=== PATIENT | female | born 1990 | race African-American/Black ===

== ENCOUNTER 2016-11-16 07:24 | Emergency (ER) | payer OTHER ==
[2016-11-16 07:29] VITALS: BP 105/67; PULSE 90; TEMP 99.6; BMI 35.2
--- NOTE | 2016-11-16 07:42 | PDOC ---
Attending Attestation - Resident Resident Name: Mini Gonzalez - ED Attending Attestation I have performed the following: I have examined & evaluated the patient, The case was reviewed & discussed with the resident, I agree w/resident's findings & plan, Exceptions are as noted - HPI HPI: 26 yo F no significant PMH presents with cough, congestion, fever x2 days. No cp , SOB, N/V/D. She was evaluated at [facility] for the same yesterday, was given tylenol and discharged home. No known sick contacts. - Physicial Exam PE: GENERAL: Awake, alert, and fully oriented, in no acute distress HEAD: No signs of trauma EYES: PERRLA, EOMI, sclera anicteric, conjunctiva clear ENT: Auricles normal inspection, hearing grossly normal, nares patent, oropharynx clear without exudates. +Tonsillar hypertrophy, no exudates. Moist mucosa NECK: Normal ROM, supple, no lymphadenopathy, JVD, or masses LUNGS: Breath sounds equal, clear to auscultation bilaterally. No wheezes, and no crackles HEART: Regular rate and rhythm, normal S1 and S2, no murmurs, rubs or gallops ABDOMEN: Soft, nontender, normoactive bowel sounds. No guarding, no rebound. No masses EXTREMITIES: Normal range of motion, no edema. No clubbing or cyanosis. No cords, erythema, or tenderness NEUROLOGICAL: Cranial nerves II through XII grossly intact. Normal speech, normal gait SKIN: Warm, Dry, normal turgor, no rashes or lesions noted. - Medical Decision Making Symptoms likely due to flu. Will prescribe tamiflu, robitussin AC for cough.
--- NOTE | 2016-11-16 08:01 | PDOC ---
History of Present Illness - General History Source: Patient Exam Limitations: No Limitations - History of Present Illness Initial Comments: 11/16/16 08:34 Patient is a 26 year old female with a PMHx of Anemia and Asthma who presents to the ED complaining of cough with yellow sputum, runny nose, nasal congestion , and post nasal drip associated with chills. Patient reports the symptoms began two days ago and went to [facility] but complained that she was only given Tylenol, which she reports worsened the symptoms. She denies fever, nausea, vomiting, abdominal pain She denies chest pain, palpitations, shortness of breath She denies dizziness, loss of consciousness, headaches PMHx: Anemia and Asthma PSHx: None Medications: Ferrous Sulfate and Albuterol Allergies: NKDA Social: Denies alcohol, drugs, smoking <Mini Gonzalez - Last Filed: 11/16/16 09:30> <Michelle Kern - Last Filed: 11/18/16 07:35> - General Chief Complaint: Cold Symptoms Stated Complaint: COUGHING/SORE THROAT/CONGESTION Time Seen by Provider: 11/16/16 07:38 Past History - Past Medical History Anemia: Yes Asthma: Yes - Immunization History Immunization Up to Date: Yes - Psycho/Social/Smoking Cessation Hx Anxiety: No Suicidal Ideation: No Smoking History: Never smoked Have you smoked in the past 12 months: No Information on smoking cessation initiated: No Hx Alcohol Use: No Drug/Substance Use Hx: No Substance Use Type: None <Mini Gonzalez - Last Filed: 11/16/16 09:30> <Michelle Kern - Last Filed: 11/18/16 07:35> - Past Medical History Allergies/Adverse Reactions: Allergies Allergy/AdvReac Type Severity Reaction Status Date / Time No Known Allergies Allergy Verified 11/16/16 07:26 Home Medications: Ambulatory Orders Guaifenesin AC [Robitussin AC] 5 ml PO Q6H PRN #60 ml MDD 20 mL 11/16/16 Oseltamivir Phosphate [Tamiflu -] 75 mg PO BID #9 capsule 11/16/16 Review of Systems - Review of Systems Constitutional: Yes: Chills, Loss of Appetite. No: Diaphoresis, Fever HEENTM: Yes: Nose Congestion, Throat Pain. No: Ear Discharge Respiratory: Yes: Cough, Productive cough. No: Shortness of Breath, Wheezing Cardiac (ROS): Yes: Chest Pain (when coughing ). No: Edema, Lightheadedness, Palpitations ABD/GI: No: Diarrhea, Nausea, Vomiting, Abdominal cramping : No: Dysuria, Discharge, Frequency, Flank Pain, Pain Musculoskeletal: Yes: Joint Pain (body aches ). No: Back Pain Integumentary: No: Erythema, Flushing Neurological: Yes: Headache. No: Tingling, Weakness Psychiatric: No: Anxiety, Depression Endocrine: No: Intolerance to Cold, Intolerance to Heat Hematologic/Lymphatic: Yes: Anemia. No: Blood Clots <Mini Gonzalez - Last Filed: 11/16/16 09:30> *Physical Exam - Vital Signs Last Vital Signs Temp Pulse Resp BP Pulse Ox 99.6 F 90 20 105/67 98 11/16/16 07:26 11/16/16 07:26 11/16/16 07:26 11/16/16 07:11/16/16 07:26 - Physical Exam General Appearance: Yes: Other (Awake, alert, oriented and in no acute distress) HEENT: positive: EOMI, TRIP, TMs Normal, Pharynx Normal, Other (Tonsillitis). negative: Pharyngeal Erythema, Tonsillar Exudate, TM Erythema Neck: positive: Normal Thyroid. negative: Carotid bruit, Lymphadenopathy (R), Lymphadenopathy (L) Respiratory/Chest: positive: Lungs Clear, Normal Breath Sounds. negative: Respiratory Distress, Accessory Muscle Use, Labored Respiration, Decreased Breath Sounds, Crackles, Rhonchi, Stridor, Wheezing Cardiovascular: positive: Regular Rhythm, Regular Rate, S1, S2. negative: Edema , JVD, Murmur Gastrointestinal/Abdominal: positive: Normal Bowel Sounds, Soft. 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, Fully Oriented, Alert, Normal Mood/ Affect, Normal Response, Motor Strength 5/5 <Mini Gonzalez - Last Filed: 11/16/16 09:30> - Vital Signs Last Vital Signs Temp Pulse Resp BP Pulse Ox 99.6 F 90 20 105/67 98 11/16/16 07:26 11/16/16 07:26 11/16/16 07:26 11/16/16 07:26 11/16/16 07:26 <Michelle Kern - Last Filed: 11/18/16 07:35> ED Treatment Course - Medications Given in the ED: ED Medications Discontinued Medications Generic Name Dose Route Start Last Admin Trade Name Freq PRN Reason Stop Dose Admin Guaifenesin/Codeine Phosphate 10 ml 11/16/16 08:08 11/16/16 08:28 Robitussin Ac - PO 11/16/16 08:09 10 ml ONCE ONE Administration Oseltamivir Phosphate 75 mg 11/16/16 08:07 11/16/16 08:28 Tamiflu - PO 11/16/16 08:08 75 mg ONCE ONE Administration <Michelle Kern - Last Filed: 11/18/16 07:35> Medical Decision Making - Medical Decision Making 11/16/16 08:25 Patient is a 26 year old female with a PMHx of Asthma and Anemia who presents to the ED complaining of Cold, productive cough, sore throat, nasal congestion, and body aches for the last two days. Differential Diagnosis include but not limited to Influenza, URI, Asthma exacerbation. ED Course and Treatment: -Tamiflu 75mg PO -Robitussin AC 10ml PO once -Patient remains afebrile -May be discharged with Tamiflu 75mg BID for 5 days and explained that she has a viral infection and that she needs to have bed rest and remain hydrated <Mini Gonzalez - Last Filed: 11/16/16 09:30> *DC/Admit/Observation/Transfer - Discharge Dispostion Admit: No <Mini Gonzalez - Last Filed: 11/16/16 09:30> <Michelle Kern - Last Filed: 11/18/16 07:35> Diagnosis at time of Disposition: Influenza - Discharge Dispostion Disposition: HOME Condition at time of disposition: Stable - Prescriptions Prescriptions: Guaifenesin AC [Robitussin AC] 5 ml PO Q6H PRN #60 ml MDD 20 mL PRN Reason: Cough Oseltamivir Phosphate [Tamiflu -] 75 mg PO BID #9 capsule - Referrals Referrals: Bailee Ricci [Primary Care Provider] - - Patient Instructions Printed Discharge Instructions: DI for Viral Upper Respiratory Infection -- Adult Additional Instructions: -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
[2016-11-16] MEDS ORDERED: OSELTAMIVIR PHOSPHATE 75 MG CAPSULE PO ONE (08:07)
[2016-11-16] MEDS ORDERED: guaiFENesin/CODEINE 10 ML UNIT-DOSE CUPS PO ONE (08:08)
[2016-11-16] MEDS ORDERED: guaiFENesin/CODEINE 10 ML UNIT-DOSE CUPS ONE (08:13)
[2016-11-16] MEDS ORDERED: OSELTAMIVIR PHOSPHATE 75 MG CAPSULE ONE (08:14)
== END 2016-11-16 08:35 | disposition home or self-care (01) ==
LOC: JER 07:24
DX: J11.1 Influenza due to unidentified influenza virus with other respiratory manifestations (principal); J45.909 Unspecified asthma, uncomplicated; D64.9 Anemia, unspecified
CPT/HCPCS: 99281-25

== ENCOUNTER 2017-02-19 10:27 | Emergency (ER) | payer OTHER ==
[2017-02-19 10:39] VITALS: BMI 35.2
--- NOTE | 2017-02-19 11:34 | PDOC ---
History of Present Illness - General History Source: Patient Exam Limitations: No Limitations - History of Present Illness Initial Comments: 02/19/17 11:35 The patient is a 26 year old female, with a significant past medical history of anemia, depression, and asthma, who presents to the emergency department with depression for many years. The patient reports hearing a deep voice telling her these people are coming to kill her. She reports hearing voices in the past and having no alleviation from medications prescribed by her psychiatrist. She denies the voices instructing her to hurt other people. She reports having a previous attempt at attempting to end her life (over 10 years ago) and reports having urges today of hurting herself. She denies having any complaints of pain. She denies recent fevers, chills, headache or dizziness. She denies recent nausea, vomit, diarrhea or constipation. She denies recent dysuria, frequency, urgency or hematuria. She denies recent chest pain or shortness of breath. Allergies: NKDA Past surgical history: None reported. Social history: Nonsmoker. Denies EtOH use and drug use. <Souleymane Gold - Last Filed: 02/19/17 11:35> - General History Source: Patient, Old Records Exam Limitations: No Limitations <Rola Schumacher - Last Filed: 02/19/17 14:17> - General Chief Complaint: Psychiatric Stated Complaint: DEPRESSED Time Seen by Provider: 02/19/17 11:15 Past History <Souleymnae Gold - Last Filed: 02/19/17 11:35> - Past Medical History Anemia: Yes Asthma: Yes Psychiatric Problems: Yes (BIPOLAR,SCHIZOPHRENIA,DEPRESSION,ANXIETY DISORDER) - Immunization History Immunization Up to Date: Yes - Psycho/Social/Smoking Cessation Hx Anxiety: Yes Suicidal Ideation: No (DENIES) Smoking History: Never smoked Have you smoked in the past 12 months: No Hx Alcohol Use: No Drug/Substance Use Hx: No Substance Use Type: None <Rola Schumacher - Last Filed: 02/19/17 14:17> - Past Medical History Allergies/Adverse Reactions: Allergies Allergy/AdvReac Type Severity Reaction Status Date / Time shellfish derived Allergy Verified 02/19/17 10:40 Home Medications: Ambulatory Orders Haloperidol [Haldol -] 10 mg PO BID 02/19/17 Review of Systems - Review of Systems Able to Perform ROS?: Yes Comments:: 02/19/17 11:36 CONSTITUTIONAL: Absent: fever, no chills, no fatigue EYES: Absent: visual changes ENT: Absent: ear pain, no sore throat CARDIOVASCULAR: Absent: chest pain, no palpitations RESPIRATORY: Absent: cough, no SOB GI: Absent: abdominal pain, no nausea, no vomiting, no constipation, no diarrhea GENITOURINARY: Absent: dysuria, no frequency, no hematuria MUSKULOSKELETAL: Absent: back pain, no arthralgia, no myalgia SKIN: Absent: rash NEURO: Absent: headache PSYCH +hearing voices and depression <Souleymane Gold - Last Filed: 02/19/17 11:35> *Physical Exam - Vital Signs Last Vital Signs Temp Pulse Resp BP Pulse Ox 98.0 F 86 18 118/73 97 02/19/17 10:31 02/19/17 10:31 02/19/17 10:31 02/19/17 10:31 02/19/17 10:31 - Physical Exam Comments: 02/19/17 11:36 GENERAL: Well developed, well nourished. Awake and alert. Tearful on examination. HEENT: Normocephalic, atraumatic. PERRLA, EOMI. No conjunctival pallor. Sclera are non- icteric. Moist mucous membranes. Oropharynx is clear. NECK: Supple. Full ROM. No JVD. Carotid pulses 2+ and symmetric, without bruits. No thyromegaly. No lymphadenopathy. CARDIOVASCULAR: Regular rate and rhythm. No murmurs, rubs, or gallops. Distal pulses are 2+ and symmetric. PULMONARY: No evidence of respiratory distress. Lungs clear to auscultation bilaterally. No wheezing, rales or rhonchi. ABDOMINAL: Soft. Non-tender. Non-distended. No rebound or guarding. No organomegaly. Normoactive bowel sounds. MUSCULOSKELETAL Normal range of motion at all joints. No bony deformities or tenderness. No CVA tenderness. EXTREMITIES: No cyanosis. No clubbing. No edema. No calf tenderness. SKIN: Warm and dry. Normal capillary refill. No rashes. No jaundice. NEUROLOGICAL: Alert, awake, appropriate. Cranial nerves 2-12 intact. No deficits to light touch and temperature in face, upper extremities and lower extremities. No motor deficits in the in face, upper extremities and lower extremities. Normoreflexic in the upper and lower extremities. <Souleymane Gold - Last Filed: 02/19/17 11:35> - Vital Signs Last Vital Signs Temp Pulse Resp BP Pulse Ox 98.0 F 86 18 118/73 97 02/19/17 10:31 02/19/17 10:31 02/19/17 10:31 02/19/17 10:31 02/19/17 10:31 <Rola Schumacher - Last Filed: 02/19/17 14:17> ED Treatment Course - LABORATORY CBC & Chemistry Diagram: 02/19/17 12:10 02/19/17 12:10 <Rola Schumacher - Last Filed: 02/19/17 14:17> Medical Decision Making - Medical Decision Making 02/19/17 11:42 26-year-old female with history of psychiatric illness, depression who presents to the emergency Department with complaints of auditory hallucinations telling her that people are out to get her and feeling depressed. Differential diagnosis includes but is not limited to: Psychosis, paranoia, depression, electrolyte abnormality, thyroid disorder, toxic/metabolic derangement, substance-induced mood disorder. Plan: 1. Labs 2. Psychiatry consult 3. Observe and reevaluate 02/19/17 14:15 Addendum: the patient has been evaluated by the psych attending who feels that inpatient admission is warranted for evaluation and treatment of command hallucinations (see consultation). The labs have been reviewed and are noted in the EMR. The patient is medically cleared for transfer to definitive treatment. <Rola Schumacher - Last Filed: 02/19/17 14:17> *DC/Admit/Observation/Transfer - Attestations Scribe Attestion: 02/19/17 11:36 Documentation prepared by oSuleymane Gold, acting as medical service representative for Rola Schumacher MD. <Souleymane Gold - Last Filed: 02/19/17 11:35> - Attestations Physician Attestion: 02/19/17 11:43 I, Dr. Rola Schumacher, attest that the scribes documentation that appears above has been prepared under my direction and personally reviewed by me in its entirety. I confirmed that the note above accurately reflects all work, treatment, procedures, and medical decision-making performed by me. <Rola Schumacher - Last Filed: 02/19/17 14:17> Diagnosis at time of Disposition: Auditory hallucination, Psychosis - Discharge Dispostion Disposition: TRANSFER ACUTE CARE/OTHER HOSP Condition at time of disposition: Stable - Referrals Referrals: Hayden Pride MD [Primary Care Provider] -
[2017-02-19 12:18] LABS: BASOPHIL 0.5 % (0-2.0); EOSINOPHIL 1.2 % (0-4.5); MCH 20.7 pg (25.7-33.7); MCHC 30.8 g/dl (32.0-36.0); MEAN CELL VOLUME 67.3 fl (80-96); MEAN PLT VOLUME 9.5 fl (7.5-11.1); NEUTROPHILS 61.9 % (42.8-82.8); PLATELET COUNT 291 K/MM3 (134-434); RDW 16.5 % (11.6-15.6); WHITE BLOOD COUNT 6.3 K/mm3 (4.0-10.0)
[2017-02-19 12:20] LABS: URINE APPEARANCE CLEAR; URINE BILIRUBIN NEGATIVE (NEGATIVE); URINE BLOOD NEGATIVE (NEGATIVE); URINE COLOR STRAW; URINE GLUCOSE (UA) NEGATIVE (NEGATIVE); URINE KETONE NEGATIVE (NEGATIVE); URINE LEUK ESTERASE NEGATIVE (NEGATIVE); URINE NITRITE NEGATIVE (NEGATIVE); URINE PROTEIN NEGATIVE (NEGATIVE); URINE UROBILINOGEN NEGATIVE E.U./dl (0.2-1.0)
[2017-02-19 12:30] LABS: URINE MARIJUANA THC NEGATIVE ng/ml (CUTOFF=50)
[2017-02-19 12:49] LABS: COCKROFT - GAULT 155.5925; CREATININE 0.7 mg/dL (0.55-1.02); MAGNESIUM 2.2 mg/dL (1.8-2.4); PHOSPHOROUS 3.6 mg/dL (2.5-4.9)
[2017-02-19 13:29] LABS: ANISOCYTOSIS 1+; HYPOCHROMIA 2+; MICROCYTOSIS 1+; SCHISTOCYTES FEW
--- NOTE | 2017-02-19 13:43 | CON.PSY ---
Psychiatry Consult Chief Complaint: I am hearing voices that are thretening to kill me. Symptoms: reports: Sleep Disturbance, Delusions, Hallucinations, Paranoia - Previous Psychiatric Treatment Outpatient: Less than 6 mos ago Inpatient: One prior admission - Previous Substance Abuse Treatment Outpatient: None Inpatient: None - Reason for Previous Treatment Reason for Previous Treatment: Psychotic Episode - Family History Family History: Unremarkable - Allergies Allergies: Allergies Allergy/AdvReac Type Severity Reaction Status Date / Time shellfish derived Allergy Verified 02/19/17 10:40 - Current Living Status Usual Living Arrangement: Alone - Current Mental Status Evaluation Appearance: Well Groomed Attitude: Cooperative - Affect Affect: Constrictive Appropriateness: Appropriate to Content - Mood Mood: Depressed - Speech/Language Expressive: Coherent - Psychomotor Activity Psychomotor Activity: Hyperactive - Thought Process Thought Process: Circumstantial - Thought Content Hallucinations: Present Type: Auditory Delusions: Present Type: Persectory - Self Perception Self Perception: No Impairment - Cognition Attention: Alert Orientation: Time Memory, Immediate Recall: Intact Memory, Short Term: 2/3 Memory, Remote with Promptin/3 - Concentration Serial Sevens Intact: Yes Simple Calculations Intact: Yes - Abstraction Proverb Interpretation: Intact Judgement: Intact - Insight Insight: Intact - Impulse Control Impulse Control: Minimally Impaired - Suicidal Ideation Suicidal Ideation: No - Homicidal Ideation Homicidal Ideation: No Assessment/Plan 1) Patient needs Psych In Patient admission.
--- NOTE | 2017-02-20 14:13 | EKG ---
Test Reason : Blood Pressure : / mmHG Vent. Rate : 069 BPM Atrial Rate : 069 BPM P-R Int : 146 ms QRS Dur : 082 ms QT Int : 400 ms P-R-T Axes : 036 027 029 degrees QTc Int : 428 ms NORMAL SINUS RHYTHM WITH SINUS ARRHYTHMIA NORMAL ECG NO PREVIOUS ECGS AVAILABLE Confirmed by COLLIN RENNER, ANDREINA ([id number]) on 02/20/2017 2:13:32 PM Referred By: Confirmed By:ANDREINA POLANCO MD
[2017-02-21] MEDS ORDERED: HALOPERIDOL 5 MG TABLET (FP) PO ONE (10:12)
[2017-02-21 10:42] VITALS: PULSE 70; TEMP 97.9
[2017-02-21 12:36] VITALS: BP 126/73
== END 2017-02-21 12:43 | disposition short-term general hospital (02) ==
LOC: JER 10:27
DX: R44.0 Auditory hallucinations (principal); F28 Other psychotic disorder not due to a substance or known physiological condition; F31.9 Bipolar disorder, unspecified
CPT/HCPCS: 36415; 71010-TC; 80048; 80307; 81003; 83735; 84100; 84443; 84703; 85025; 93005; 93010; 99285-25

== ENCOUNTER 2017-09-04 17:19 | Emergency (ER) | payer OTHER ==
[2017-09-04 17:31] VITALS: BMI 35.2
--- NOTE | 2017-09-04 17:51 | PDOC ---
History of Present Illness <Bren Carlton - Last Filed: 09/04/17 19:00> - History of Present Illness Initial Comments: 09/04/17 18:47 The patient is a 27 year old female with a history of asthma, anxiety, depression who presents for evaluation of chest pain and SOB. The patient reports a 2 day history of sharp chest pain and associated SOB that has remained constant prompting her presentation to the ED today. The patient states that she feels like she "is having a heart attack." She states that the pain is 10/10 and sharp with radiation to her arms, abdomen and whole body. She states that the pain does not radiate into her back. She states that she feels short of breath with a sensation that she cannot catch her breath. She denies fevers, chills, recent long travel, control use, or leg swelling. <Tej Rome - Last Filed: 09/04/17 21:08> - General Chief Complaint: Chest Pain Stated Complaint: CHEST PAIN Time Seen by Provider: 09/04/17 17:51 Past History <Bren Carlton - Last Filed: 09/04/17 19:00> - Past Medical History Anemia: Yes Asthma: Yes Psychiatric Problems: Yes (BIPOLAR,SCHIZOPHRENIA,DEPRESSION,ANXIETY DISORDER) - Immunization History Immunization Up to Date: Yes - Suicide/Smoking/Psychosocial Hx Smoking History: Never smoked Have you smoked in the past 12 months: No Hx Alcohol Use: No Drug/Substance Use Hx: No Substance Use Type: None <Tej Rome - Last Filed: 09/04/17 21:08> - Past Medical History Allergies/Adverse Reactions: Allergies Allergy/AdvReac Type Severity Reaction Status Date / Time shellfish derived Allergy Verified 09/04/17 17:31 Home Medications: Ambulatory Orders Haloperidol [Haldol -] 10 mg PO BID 02/19/17 Citalopram Hydrobromide [Citalopram HBr] 20 mg PO AM 02/20/17 Clonazepam [Klonopin] 0.5 mg PO HS 02/20/17 Haloperidol [Haldol -] 2 mg PO AM 02/20/17 Olanzapine 40 mg PO HS 02/20/17 Omeprazole 20 mg PO DAILY 09/04/17 Review of Systems - Review of Systems Comments:: 09/04/17 18:53 Constitutional: No fevers, chills, fatigue, malaise HEENT: No Rhinorrhea, nasal congestion, Cardiovascular: Chest pain. No syncope, palpitations, lightheadedness Respiratory: SOB. No Cough, Hemoptysis, Gastrointestinal: No Abdominal pain, Nausea, Vomiting, Constipation, Diarrhea, Melena Genitourinary: No Dysuria, Frequency, Urgency, Hesitancy, Hematuria, Musculoskeletal: No Myalgia, arthralgia Skin: No rashes, bruising, pallor Neurologic: No Headache, Dizziness, Numbness, Weakness, or Tingling <Tej Rome - Last Filed: 09/04/17 21:08> *Physical Exam - Vital Signs Last Vital Signs Temp Pulse Resp BP Pulse Ox 97.6 F 72 20 112/63 100 09/04/17 17:27 09/04/17 17:27 09/04/17 17:27 09/04/17 17:27 09/04/17 17:27 <Bren Carlton - Last Filed: 09/04/17 19:00> - Vital Signs Last Vital Signs Temp Pulse Resp BP Pulse Ox 97.6 F 72 20 112/63 100 09/04/17 17:27 09/04/17 17:27 09/04/17 17:27 09/04/17 17:27 09/04/17 17:27 - Physical Exam Comments: 09/04/17 18:54 General Appearance: Nourished. No Apparent Distress HEENT: EOMI, TRIP. Neck: No Cervical Lymphadenopathy Respiratory/Chest: Lungs Clear, Normal Breath Sounds. No Crackles, Rales, Rhonchi, Wheezing Cardiovascular: Regular Rhythm, Regular Rate. No Murmur, Gallops, Rubs Gastrointestinal/Abdominal: Normal Bowel Sounds, Soft. No Guarding, Rebound, Tenderness Musculoskeletal: No CVA Tenderness Extremity: Normal Capillary Refill Integumentary: Normal Color, Dry, Warm Neurologic: Fully Oriented, Alert, Normal Mood/Affect, Normal Response, <Tej Rome - Last Filed: 09/04/17 21:08> ED Treatment Course - LABORATORY CBC & Chemistry Diagram: 09/04/17 18:42 09/04/17 18:42 <Bren Carlton - Last Filed: 09/04/17 19:00> - LABORATORY CBC & Chemistry Diagram: 09/04/17 18:42 09/04/17 18:42 <Tej Rome - Last Filed: 09/04/17 21:08> Medical Decision Making - Medical Decision Making 09/04/17 18:55 The patient is a 27 year old female with a history of asthma, anxiety, depression who presents for evaluation of chest pain and SOB. Differential includes but is not limited to: Anxiety, pneumonia, acs, metabolic derangement. EKG done in triage demonstrates normal sinus rhythm without any evidence of ischemia. Given her presenting symptoms, it is likely her symptoms are due to an anxiety attack. However we will obtain a cbc, cmp, troponin, and chest plain film to evaluate for other etiologies including pneumonia and metabolic derangement. We will continue to monitor and reassess. 09/04/17 21:05 cbc, cmp, troponin are unremarkable. Chest plain film is unremarkable as read by our radiologist. The patient reports mild improvement in her symptoms. We are comfortable discharging the patient home at this time with cardiology and PCP follow up. We discussed the results with the patient who voiced understanding and is agreeable with the plan. <Tej Rome - Last Filed: 09/04/17 21:08> *DC/Admit/Observation/Transfer <Bren Carlton - Last Filed: 09/04/17 19:00> - Discharge Dispostion Admit: No <Tje Rome - Last Filed: 09/04/17 21:08> Diagnosis at time of Disposition: Atypical chest pain - Discharge Dispostion Disposition: HOME Condition at time of disposition: Improved - Referrals Referrals: Carlos Bryan MD [Primary Care Provider] - Favian Meehan MD [Staff Physician] - - Patient Instructions Printed Discharge Instructions: DI for Atypical Chest Pain Additional Instructions: Please return to the ER if you experience concerning or worsening symptoms. Please call to schedule a follow up appointment with the performance analyst's number that we have provided as well as your primary care provider Dr. Bryan.
--- NOTE | 2017-09-04 18:03 | PDOC ---
Attending Attestation - Resident Resident Name: Tej Rome - ED Attending Attestation I have performed the following: I have examined & evaluated the patient, The case was reviewed & discussed with the resident, I agree w/resident's findings & plan, Exceptions are as noted - HPI HPI: 09/04/17 17:59 Sharp Transient Chest Pain for two days - Physicial Exam PE: 09/04/17 18:01 VSS NAD Appears Comfortable - Medical Decision Making 09/04/17 18:[address] Rome Assessment and Plan <Shan Stephens - Last Filed: 09/04/17 17:58> - HPI HPI: 09/04/17 18:49 The patient is a 27 year old female, with no significant past medical history of asthma, anxiety, depression, who presents to the emergency department with sharp, midsternal chest pain with shortness of breath for two days. The patient states she feels like im having a heart attack. She reports feeling a vague discomfort throughout her entire body. She reports experiencing this pain once in November which resolved on its own. She denies being on oral contraceptives. She denies headache and dizziness. She denies fever, chills, nausea, vomit, diarrhea and constipation. She denies dysuria, frequency, urgency and hematuria. Allergies: NKDA - Physicial Exam PE: 09/04/17 18:50 GENERAL: Awake, alert, and fully oriented, in no acute distress HEAD: No signs of trauma EYES: PERRLA, EOMI, sclera anicteric, conjunctiva clear ENT: Auricles normal inspection, hearing grossly normal, nares patent, oropharynx clear without exudates. Moist mucosa NECK: Normal ROM, supple, no lymphadenopathy, JVD, or masses LUNGS: Breath sounds equal, clear to auscultation bilaterally. No wheezes, and no crackles HEART: Regular rate and rhythm, normal S1 and S2, no murmurs, rubs or gallops ABDOMEN: Soft, nontender, normoactive bowel sounds. No guarding, no rebound. No masses EXTREMITIES: Normal range of motion, no edema. No clubbing or cyanosis. No cords, erythema, or tenderness NEUROLOGICAL: Cranial nerves II through XII grossly intact. Normal speech, normal gait SKIN: Warm, Dry, normal turgor, no rashes or lesions noted. - Medical Decision Making 09/04/17 18:50 Documentation prepared by Bren Carlton, acting as medical driver for Shan Stephens DO <Bren Carlton - Last Filed: 09/04/17 18:52>
[2017-09-04] MEDS ORDERED: diazePAM 5 MG TABLET PO ONE (18:14)
[2017-09-04] MEDS ORDERED: diazePAM 5 MG TABLET ONE (18:22)
[2017-09-04 19:01] LABS: BASOPHIL 0.9 % (0-2.0); MCH 21.1 pg (25.7-33.7); MCHC 31.8 g/dl (32.0-36.0); MEAN CELL VOLUME 66.3 fl (80-96); MEAN PLT VOLUME 9.4 fl (7.5-11.1); NEUTROPHILS 62.8 % (42.8-82.8); PLATELET COUNT 275 K/MM3 (134-434); RDW 15.9 % (11.6-15.6); WHITE BLOOD COUNT 7.7 K/mm3 (4.0-10.0)
[2017-09-04 19:37] LABS: ALBUMIN 3.8 g/dl (3.4-5.0); ANION GAP 8 (8-16); BILIRUBIN,TOTAL 0.2 mg/dL (0.2-1.0); CALCIUM 8.6 mg/dL (8.5-10.1); CO2 25 mmol/L (21-32); CREATININE 0.6 mg/dL (0.55-1.02); GLUCOSE,RANDOM 88 mg/dL (74-106); SGOT/AST 9 U/L (15-37); SGPT/ALT 12 U/L (12-78); TOT PROT 7.3 g/dl (6.4-8.2)
[2017-09-04 19:39] LABS: ALK PHOS 75 U/L (45-117); CPK 174 IU/L (26-192); TROPONIN I < 0.02 ng/ml (0.00-0.05)
[2017-09-04] MEDS ORDERED: ONDANSETRON *ODT* 4 MG TABLET SL ONE (20:01)
[2017-09-04 20:02] LABS: ANISOCYTOSIS 1+; HYPOCHROMIA 1+; MICROCYTOSIS 1+; PLATELET COMMENT2 NO CLOTTING DETECTED; PLATELET ESTIMATE ADEQUATE (NORMAL); POLYCHROMASIA 1+
[2017-09-04] MEDS ORDERED: ONDANSETRON *ODT* 4 MG TABLET ONE (20:41)
[2017-09-04 21:52] VITALS: BP 115/68; PULSE 69; TEMP 97.7
--- NOTE | 2017-09-05 17:22 | EKG ---
Test Reason : Blood Pressure : / mmHG Vent. Rate : 079 BPM Atrial Rate : 079 BPM P-R Int : 142 ms QRS Dur : 080 ms QT Int : 380 ms P-R-T Axes : 048 022 026 degrees QTc Int : 435 ms NORMAL SINUS RHYTHM NORMAL ECG WHEN COMPARED WITH ECG OF 19-FEB-2017 15:53, NO SIGNIFICANT CHANGE WAS FOUND Confirmed by NINA GELLER MD ([id number]) on 09/05/2017 5:22:00 PM Referred By: Confirmed By:NINA GELLER MD
== END 2017-09-04 21:59 | disposition home or self-care (01) ==
LOC: JER 17:19
DX: R07.89 Other chest pain (principal); J45.909 Unspecified asthma, uncomplicated; F41.8 Other specified anxiety disorders; F20.9 Schizophrenia, unspecified
CPT/HCPCS: 36415; 71020-TC; 80053; 82550; 82553; 84484; 84703; 85025; 93005; 93010; 99283-25

== ENCOUNTER 2017-10-20 08:54 | Emergency (ER) | payer OTHER ==
[2017-10-20 08:58] VITALS: TEMP 97.4; BMI 35.2
--- NOTE | 2017-10-20 09:21 | PDOC ---
History of Present Illness - General Chief Complaint: Pain Stated Complaint: CHEST PAIN, SOB Time Seen by Provider: 10/20/17 09:05 History Source: Patient - History of Present Illness Presenting Symptoms: Chest Pain, Short of Breath Timing/Duration: reports: other (this am) Past History - Past Medical History Allergies/Adverse Reactions: Allergies Allergy/AdvReac Type Severity Reaction Status Date / Time shellfish derived Allergy Verified 10/20/17 08:58 Home Medications: Ambulatory Orders Haloperidol [Haldol -] 10 mg PO BID 02/19/17 Citalopram Hydrobromide [Citalopram HBr] 20 mg PO AM 02/20/17 Clonazepam [Klonopin] 0.5 mg PO HS 02/20/17 Haloperidol [Haldol -] 2 mg PO AM 02/20/17 Olanzapine 40 mg PO HS 02/20/17 Ibuprofen [Motrin -] 600 mg PO QID #28 tablet 09/04/17 Omeprazole 20 mg PO DAILY 09/04/17 Anemia: Yes Asthma: Yes COPD: No Psychiatric Problems: Yes (BIPOLAR,SCHIZOPHRENIA,DEPRESSION,ANXIETY DISORDER) - Immunization History Immunization Up to Date: Yes - Suicide/Smoking/Psychosocial Hx Smoking History: Never smoked Have you smoked in the past 12 months: No Hx Alcohol Use: No Drug/Substance Use Hx: No Substance Use Type: None Review of Systems - Review of Systems Constitutional: Yes: Chills. No: Fever Respiratory: Yes: Shortness of Breath. No: Cough, Wheezing Cardiac (ROS): Yes: Chest Pain. No: Lightheadedness, Palpitations *Physical Exam - Vital Signs Last Vital Signs Temp Pulse Resp BP Pulse Ox 97.4 F L 80 18 104/60 97 10/20/17 08:55 10/20/17 08:55 10/20/17 08:55 10/20/17 08:55 10/20/17 08:55 - Physical Exam General Appearance: Yes: Appropriately Dressed. No: Apparent Distress HEENT: positive: Normal Voice Neck: positive: Supple Respiratory/Chest: positive: Lungs Clear, Normal Breath Sounds. negative: Respiratory Distress Cardiovascular: positive: Regular Rate, S1, S2 Gastrointestinal/Abdominal: positive: Soft. negative: Tender Extremity: positive: Normal Inspection Integumentary: positive: Dry, Warm Neurologic: positive: Fully Oriented, Alert, Normal Mood/Affect Heart Score/ECG Review - ECG Intrepretation Comment:: 10/20/17 09:52 Twelve-lead EKG was performed and reviewed by me. There is normal sinus rhythm with a normal rate. The axis is normal. The intervals are normal. There are no ST or T wave abnormalities. Impression: Normal twelve-lead EKG ED Treatment Course - LABORATORY CBC & Chemistry Diagram: 10/20/17 09:53 10/20/17 09:53 - ADDITIONAL ORDERS Additional order review: Laboratory Results 10/20/17 10/20/17 09:53 09:31 Sodium 139 Potassium 3.9 Chloride 107 Carbon Dioxide 26 Anion Gap 6 L BUN 10 Creatinine 0.7 Creat Clearance w eGFR > 60 Random Glucose 85 Calcium 8.4 L Total Bilirubin 0.4 D AST 7 L D ALT 12 Alkaline Phosphatase 65 Total Protein 6.9 Albumin 3.4 Serum , Qual Negative 10/20/17 09:53 RBC 4.77 MCV 67.4 L MCHC 31.0 L RDW 15.3 MPV 9.6 Neutrophils % 63.9 Lymphocytes % 28.1 Monocytes % 6.2 Eosinophils % 1.4 Basophils % 0.4 - RADIOLOGY Radiology Studies Ordered: Category Date Time Status CHEST PA & LAT [RAD] Stat Radiology 10/20/17 09:18 Completed - Medications Given in the ED: ED Medications Discontinued Medications Generic Name Dose Route Start Last Admin Trade Name Freq PRN Reason Stop Dose Admin Ibuprofen 800 mg 10/20/17 10:21 10/20/17 10:26 Motrin - PO 10/20/17 10:22 800 mg ONCE ONE Administration Medical Decision Making - Medical Decision Making 10/20/17 09:20 27-year-old female, history of asthma, anxiety, depression who presents with chest pain and shortness of breath. Patient states she woke up with right-sided , sharp chest pain with difficulty breathing this am. Denies any diaphoresis, nausea, vomiting, palpitations, leg pain or swelling. No obvious risk factors for DVT, PE. Of note, patient presented to the ED with similar symptoms over 1 month ago with negative workup. States she feels that her symptoms are worse today See exam Recurrent CP Seen for same 08/27 w/ neg w/u H/o depression/anxiety w/ recent psych admission for command auditory hallucination, on meds Pt well mary w/ unremarkable exam Pt m/l do not need rpt work up but is insistent upon same today -ekg/cxr/labs -anticipate discharge w/ pmd f/u 10/20/17 11:36 Workup negative in ED. Patient currently stable for discharge to follow-up with her PMD *DC/Admit/Observation/Transfer Diagnosis at time of Disposition: Chest pain Qualifiers: Chest pain type: unspecified Qualified Code(s): R07.9 - Chest pain, unspecified - Discharge Dispostion Disposition: HOME Condition at time of disposition: Improved - Referrals Referrals: Carlos Bryan MD [Primary Care Provider] - - Patient Instructions Printed Discharge Instructions: DI for Chest Pain Additional Instructions: Your EKG, chest x-ray and labs were all negative. If pain continues, please follow-up with your PMD - Post Discharge Activity
[2017-10-20 10:10] LABS: BASOPHIL 0.4 % (0-2.0); EOSINOPHIL 1.4 % (0-4.5); MCH 20.9 pg (25.7-33.7); MEAN CELL VOLUME 67.4 fl (80-96); MEAN PLT VOLUME 9.6 fl (7.5-11.1); NEUTROPHILS 63.9 % (42.8-82.8); PLATELET COUNT 279 K/MM3 (134-434); RDW 15.3 % (11.6-15.6); WHITE BLOOD COUNT 7.3 K/mm3 (4.0-10.0)
[2017-10-20] MEDS ORDERED: IBUPROFEN 400 MG TABLET (FP) PO ONE ×2 (10:21→10:24)
[2017-10-20 10:35] LABS: ALBUMIN 3.4 g/dl (3.4-5.0); ANION GAP 6 (8-16); BILIRUBIN,TOTAL 0.4 mg/dL (0.2-1.0); CALCIUM 8.4 mg/dL (8.5-10.1); CO2 26 mmol/L (21-32); CREATININE 0.7 mg/dL (0.55-1.02); GLUCOSE,RANDOM 85 mg/dL (74-106); SGOT/AST 7 U/L (15-37); SGPT/ALT 12 U/L (12-78); TOT PROT 6.9 g/dl (6.4-8.2)
[2017-10-20 10:36] LABS: ALK PHOS 65 U/L (45-117)
[2017-10-20 11:59] VITALS: BP 106/62; PULSE 78
--- NOTE | 2017-10-21 15:07 | EKG ---
Test Reason : Blood Pressure : / mmHG Vent. Rate : 064 BPM Atrial Rate : 064 BPM P-R Int : 154 ms QRS Dur : 076 ms QT Int : 396 ms P-R-T Axes : 018 007 012 degrees QTc Int : 408 ms NORMAL SINUS RHYTHM WITH SINUS ARRHYTHMIA MINIMAL VOLTAGE CRITERIA FOR LVH, MAY BE NORMAL VARIANT ANTERIOR INFARCT , AGE UNDETERMINED ABNORMAL ECG WHEN COMPARED WITH ECG OF 04-SEP-2017 17:29, T WAVE INVERSION NOW EVIDENT IN ANTERIOR LEADS Confirmed by WILLY GROSS MD ([id number]) on 10/21/2017 3:07:13 PM Referred By: Confirmed By:WILLY GROSS MD
== END 2017-10-20 11:59 | disposition home or self-care (01) ==
LOC: JER 08:54
DX: R07.9 Chest pain, unspecified (principal); J45.909 Unspecified asthma, uncomplicated; F20.9 Schizophrenia, unspecified; D64.9 Anemia, unspecified
CPT/HCPCS: 36415; 71020-TC; 80053; 84703; 85025; 93005; 93010; 99283-25

== ENCOUNTER 2018-04-25 09:03 | Emergency (ER) | payer OTHER ==
[2018-04-25 09:12] VITALS: BMI 35.2
[2018-04-25] MEDS ORDERED: ONDANSETRON 4 MG/2 ML VIAL IVPUSH ONE (09:23)
[2018-04-25] MEDS ORDERED: ACETAMINOPHEN 1000 MG/100 ML VIAL (NON FORMULARY) IVPB ONE (09:23)
[2018-04-25] MEDS ORDERED: SODIUM CHLORIDE 0.9% 1000 ML INFUS.BAG IV ONE (09:23)
[2018-04-25] MEDS ORDERED: ONDANSETRON 4 MG/2 ML VIAL ONE (09:29)
[2018-04-25] MEDS ORDERED: ACETAMINOPHEN INJECTION 100 ML IVPB ONE ×2 (09:29→09:46)
[2018-04-25 09:55] LABS: BASO % 0.8 % (0-2.0); EOS % 1.4 % (0-4.5); HEMATOCRIT 33.3 % (32.4-45.2); HEMOGLOBIN 10.4 GM/dL (10.7-15.3); LYMPH % 23.1 % (8-40); MCHC 31.4 g/dl (32.0-36.0); MEAN PLT VOLUME 9.3 fl (7.5-11.1); MONO % 8.6 % (3.8-10.2); NEUT % 66.1 % (42.8-82.8); PLATELET COUNT 274 K/MM3 (134-434); RBC 4.97 M/mm3 (3.60-5.2); RDW 15.9 % (11.6-15.6); WHITE BLOOD COUNT 5.4 K/mm3 (4.0-10.0)
[2018-04-25 10:25] LABS: CHLORIDE 107 mmol/L (98-107); SODIUM 136 mmol/L (136-145)
[2018-04-25 10:28] LABS: URINE APPEARANCE CLEAR; URINE BILIRUBIN NEGATIVE (<2.0 mg/dL); URINE BLOOD NEGATIVE (NEGATIVE); URINE COLOR LTYELLOW; URINE GLUCOSE (UA) NEGATIVE (NEGATIVE); URINE KETONE NEGATIVE (NEGATIVE); URINE LEUK ESTERASE NEGATIVE (NEGATIVE); URINE NITRITE NEGATIVE (NEGATIVE); URINE PROTEIN NEGATIVE (NEGATIVE); URINE UROBILINOGEN NEGATIVE mg/dL (0.2-1.0)
--- NOTE | 2018-04-25 10:28 | PDOC ---
History of Present Illness - General History Source: Patient Exam Limitations: No Limitations - History of Present Illness Initial Comments: 04/25/18 10:32 The patient is a 27 year old female with a significant past medical history of asthma, anemia, and GERD who presents to the emergency department for evaluation of sore throat and abdominal pain. The patient reports a 1 day history of sore throat and diffuse abdominal pain. She describes the throat pain as moderate in nature. The patient describes the abdominal pain as constant and dull in nature. She reports a 2 day history of associated symptoms of decreased PO intake, diarrhea, nausea, and NBNB emesis. The patient reports multiple episodes of NBNB emesis all of yesterday which prompted her to visit the emergency department today for further evaluation. She reports taking Tylenol with no alleviation to symptoms. The patient denies chest pain, shortness of breath, headache, and dizziness. Denies fevers, chills, constipation, dysuria, frequency, urgency, and hematuria. Denies recent travel and sick contact. Allergies: Shellfish derived. Past surgical history: Patient denies. Social history: No reported cigarette, alcohol, or drug use. PCP: Dr. River Joshi ([phone]) <Adilene Walsh - Last Filed: 04/25/18 10:32> <Rufino Nguyen - Last Filed: 04/25/18 16:45> - General Chief Complaint: Pain, Acute Stated Complaint: SORE THROAT Time Seen by Provider: 04/25/18 09:48 Past History <Adilene Walsh - Last Filed: 04/25/18 10:32> - Past Medical History Anemia: Yes Asthma: Yes COPD: No GI Disorders: Yes (GERD) Psychiatric Problems: Yes (BIPOLAR,SCHIZOPHRENIA,DEPRESSION,ANXIETY DISORDER) - Immunization History Immunization Up to Date: Yes - Suicide/Smoking/Psychosocial Hx Smoking History: Never smoked Have you smoked in the past 12 months: No Information on smoking cessation initiated: No Hx Alcohol Use: No Drug/Substance Use Hx: No Substance Use Type: None <Rufino Nguyen - Last Filed: 04/25/18 16:45> - Past Medical History Allergies/Adverse Reactions: Allergies Allergy/AdvReac Type Severity Reaction Status Date / Time shellfish derived Allergy Verified 04/25/18 09:05 Home Medications: Ambulatory Orders Haloperidol [Haldol -] 10 mg PO BID 04/11/17 Citalopram Hydrobromide [Citalopram HBr] 20 mg PO AM 02/20/17 Clonazepam [Klonopin] 0.5 mg PO HS 02/20/17 Haloperidol [Haldol -] 2 mg PO AM 02/20/17 Olanzapine 40 mg PO HS 02/20/17 Ibuprofen [Motrin -] 600 mg PO QID #28 tablet 09/04/17 Omeprazole 20 mg PO DAILY 09/04/17 Ondansetron [Zofran Odt -] 4 mg SL BID #14 od.tablet 04/25/18 Review of Systems - Review of Systems Able to Perform ROS?: Yes Comments:: A complete review of 10 out of 10 review of systems is taken and is negative apart from what is previously mentioned below and in the HPI. <Adilene Walsh - Last Filed: 04/25/18 10:32> *Physical Exam - Vital Signs Last Vital Signs Temp Pulse Resp BP Pulse Ox 97.5 F L 78 20 91/58 100 04/25/18 09:06 04/25/18 09:06 04/25/18 09:06 04/25/18 09:06 04/25/18 09:06 - Physical Exam Comments: Vitals: Triage Vital signs reviewed General Appearance: no acute distress, well nourished well developed, Head: Atraumatic, normocephalic Nose: Nares patent bilaterally;no nasal congestion Throat: (+)Enlarged tonsils. Neck: Supple;No Nuchal rigidity Chest Wall: Nontender Cardiac: Regular rate and rhythm, no murmurs, no rubs, no gallops, Lungs: Clear to auscultation bilateral, good air movement bilaterally, Abdomen: Soft, nondistended, normal bowel sounds, nontender to palpation Extremities: Full range of motion to all extremities, no cyanosis, clubbing, or edema Skin: Warm and dry, no rashes or lesions, no petechiae Psych: normal mood, normal affect. <Adilene Walsh - Last Filed: 04/25/18 10:32> - Vital Signs Last Vital Signs Temp Pulse Resp BP Pulse Ox 97.5 F L 78 20 91/58 100 04/25/18 09:06 04/25/18 09:06 04/25/18 09:06 04/25/18 09:06 04/25/18 09:06 <Rufino Nguyen - Last Filed: 04/25/18 16:45> ED Treatment Course - LABORATORY CBC & Chemistry Diagram: 04/25/18 09:35 04/25/18 09:35 - ADDITIONAL ORDERS Additional order review: Laboratory Results 04/25/18 09:20 Urine Color Ltyellow Urine Appearance Clear Urine pH 6.0 Ur Specific [place] 1.025 Urine Protein Negative Urine Glucose (UA) Negative Urine Ketones Negative Urine Blood Negative Urine Nitrite Negative Urine Bilirubin Negative Urine Urobilinogen Negative Ur Leukocyte Esterase Negative Urine HCG, Qual Negative 04/25/18 09:35 RBC 4.97 MCV 67.0 L MCHC 31.4 L RDW 15.9 H MPV 9.3 Neutrophils % 66.1 Lymphocytes % 23.1 Monocytes % 8.6 Eosinophils % 1.4 Basophils % 0.8 - Medications Given in the ED: ED Medications Discontinued Medications Generic Name Dose Route Start Last Admin Trade Name Freq PRN Reason Stop Dose Admin Acetaminophen 1,000 mg 04/25/18 09:23 04/25/18 09:44 Ofirmev Injection - IVPB 04/25/18 09:24 1,000 mg ONCE ONE Administration Ondansetron HCl 4 mg 04/25/18 09:23 04/25/18 09:44 Zofran Injection IVPUSH 04/25/18 09:24 4 mg ONCE ONE Administration Sodium Chloride 1,000 ml 04/25/18 09:23 04/25/18 09:40 Normal Saline - IV 04/25/18 09:24 1,000 ml ONCE ONE Administration <Adilene Walsh - Last Filed: 04/25/18 10:32> - LABORATORY CBC & Chemistry Diagram: 04/25/18 09:35 04/25/18 09:35 - ADDITIONAL ORDERS Additional order review: 04/25/18 09:35 RBC 4.97 MCV 67.0 L MCHC 31.4 L RDW 15.9 H MPV 9.3 Neutrophils % 66.1 Lymphocytes % 23.1 Monocytes % 8.6 Eosinophils % 1.4 Basophils % 0.8 - Medications Given in the ED: ED Medications Discontinued Medications Generic Name Dose Route Start Last Admin Trade Name Freq PRN Reason Stop Dose Admin Acetaminophen 1,000 mg 04/25/18 09:23 04/25/18 09:44 Ofirmev Injection - IVPB 04/25/18 09:24 1,000 mg ONCE ONE Administration Ondansetron HCl 4 mg 04/25/18 09:23 04/25/18 09:44 Zofran Injection IVPUSH 04/25/18 09:24 4 mg ONCE ONE Administration Sodium Chloride 1,000 ml 04/25/18 09:23 04/25/18 09:40 Normal Saline - IV 04/25/18 09:24 1,000 ml ONCE ONE Administration <Rufino Nguyen - Last Filed: 04/25/18 16:45> Medical Decision Making - Medical Decision Making The patient is a 27 year old female with a significant past medical history of asthma and anemia who presents to the emergency department for evaluation of sore throat and abdominal pain. Plan: Labs Fluids Medication for Nausea IV Tylenol <Adilene Walsh - Last Filed: 04/25/18 10:32> - Medical Decision Making Reevaluation patient feels much better. Now tolerating fluids. Labs within normal limits History and examination and laboratory analysis consistent with viral GI illness given slight sore throat slight tonsillar enlargement no exudate rapid strep negative as well as nausea vomiting and intermittent diffuse abdominal discomfort Repeat evaluation of the abdomen performed at 11:35 AM demonstrates no rebound no guarding no right lower quadrant tenderness no localizing abdominal tenderness. We'll discharge home with Zofran fluids for the next 24 hours. Patient instructed to return to the ED immediately for any fever severe worsening abdominal pain or for any concerns. 04/25/18 16:45 <Rufino Nguyen - Last Filed: 04/25/18 16:45> *DC/Admit/Observation/Transfer - Attestations Scribe Attestion: Documentation prepared by Adilene Walsh, acting as chief medical technologist for Rufino Nguyen MD. <Adilene Walsh - Last Filed: 04/25/18 10:32> - Discharge Dispostion Decision to Admit order: No <Rufino Nguyen - Last Filed: 04/25/18 16:45> Diagnosis at time of Disposition: Nausea & vomiting Qualifiers: Vomiting type: unspecified Vomiting Intractability: unspecified Qualified Code( s): R11.2 - Nausea with vomiting, unspecified - Discharge Dispostion Disposition: HOME Condition at time of disposition: Improved - Prescriptions Prescriptions: Ondansetron [Zofran Odt -] 4 mg SL BID #14 od.tablet - Referrals Referrals: Rose Joshi NP [Primary Care Provider] - - Patient Instructions Printed Discharge Instructions: Nausea and Vomiting-Adult Additional Instructions: Zofran as prescribed. Drink plenty of fluids. Follow up with her primary care provider this week. Rest. If no vomiting after 24 hours okay to proceed to a bland diet otherwise for the next 24 hours only fluids Gatorade soup. Return to the emergency department immediately for any severe worsening symptoms any severe abdominal pain fever or for any concerns. - Post Discharge Activity Forms/Work/School Notes: Back to Work
[2018-04-25 10:30] LABS: HCG,QUALITATIVE URINE NEGATIVE
[2018-04-25 10:33] LABS: ALBUMIN 3.4 g/dl (3.4-5.0); ALK PHOS 66 U/L (45-117); BILIRUBIN,TOTAL 0.2 mg/dL (0.2-1.0); BLOOD UREA NITROGEN 12 mg/dL (7-18); CALCIUM 8.6 mg/dL (8.5-10.1); CREATININE 0.6 mg/dL (0.55-1.02); GLUCOSE,RANDOM 88 mg/dL (74-106); SGPT/ALT 16 U/L (12-78); TOT PROT 7.1 g/dl (6.4-8.2)
[2018-04-25 11:19] LABS: POTASSIUM 4.9 mmol/L (3.5-5.1); SGOT/AST 23 U/L (15-37)
[2018-04-25] MEDS ORDERED: KETOROLAC TROMETHAMINE 30 MG/1 ML VIAL IVPUSH ONE (11:38)
[2018-04-25 11:50] LABS: PLATELET ESTIMATE NORMAL; TEAR DROP CELLS 1+
[2018-04-25] MEDS ORDERED: KETOROLAC TROMETHAMINE 30 MG/1 ML VIAL ONE (11:58)
[2018-04-25 12:24] VITALS: BP 110/67; PULSE 58; TEMP 97.6
[2018-04-25 12:35] LABS: ANION GAP 7 (8-16); CO2 22 mmol/L (21-32)
== END 2018-04-25 12:35 | disposition home or self-care (01) ==
LOC: JER 09:03
PROC: 3E033GC Introduction of Other Therapeutic Substance into Peripheral Vein, Percutaneous Approach (ICD-10-PCS; principal; 2018-04-25)
PROC: 3E033NZ Introduction of Analgesics, Hypnotics, Sedatives into Peripheral Vein, Percutaneous Approach (ICD-10-PCS; 2018-04-25)
PROC: 3E0333Z Introduction of Anti-inflammatory into Peripheral Vein, Percutaneous Approach (ICD-10-PCS; 2018-04-25)
DX: R11.2 Nausea with vomiting, unspecified (principal); D64.9 Anemia, unspecified; J45.909 Unspecified asthma, uncomplicated; K21.9 Gastro-esophageal reflux disease without esophagitis; F39 Unspecified mood [affective] disorder; F20.9 Schizophrenia, unspecified; F41.9 Anxiety disorder, unspecified
CPT/HCPCS: 36415; 80053; 81003; 84703; 85025; 87070; 87086; 87430; 96374; 96375; 99282-25; J0131; J7030

== ENCOUNTER 2018-05-03 17:43 | Emergency (ER) | payer OTHER ==
[2018-05-03 18:07] VITALS: BP 132/57; PULSE 79; TEMP 98.4; BMI 35.2
--- NOTE | 2018-05-03 19:03 | PDOC ---
History of Present Illness - General Chief Complaint: Pain, Acute Stated Complaint: ABD PAIN Time Seen by Provider: 05/03/18 19:02 - History of Present Illness Initial Comments: 05/03/18 19:02 Ms. Gregg is a 28 yo female w/ pmh of asthma, anemia, GERD, depression, anxiety , and bipolar disorder who presents with a 3 day history of pain with swallowing , diffuse abdominal pain, vaginal itching, and burning when she urinates. She reports all 3 of these started at once and have been increasing over the last few days. She presents today as she "can't stand it anymore." The patient denies chest pain, shortness of breath, headache and dizziness. Denies fever, chills, nausea, vomit, diarrhea and constipation. Allergies: Shellfish Past History - Past Medical History Allergies/Adverse Reactions: Allergies Allergy/AdvReac Type Severity Reaction Status Date / Time shellfish derived Allergy Verified 05/03/18 18:00 Home Medications: Ambulatory Orders Omeprazole 20 mg PO DAILY 09/04/17 Albuterol Sulfate Inhaler - [Ventolin Hfa Inhaler -] 1 puff IH PRN 05/03/18 Doxycycline Hyclate 100 mg PO BID #14 tablet 05/03/18 Ferrous Sulfate [Iron] 325 mg PO DAILY 05/03/18 Anemia: Yes Asthma: Yes COPD: No GI Disorders: Yes (GERD) Psychiatric Problems: Yes (BIPOLAR,SCHIZOPHRENIA,DEPRESSION,ANXIETY DISORDER) - Immunization History Immunization Up to Date: Yes - Suicide/Smoking/Psychosocial Hx Smoking History: Never smoked Have you smoked in the past 12 months: No Information on smoking cessation initiated: No Hx Alcohol Use: No Drug/Substance Use Hx: No Substance Use Type: None Review of Systems - Review of Systems Comments:: 05/03/18 19:03 GENERAL/CONSTITUTIONAL: No fever or chills. No weakness. HEAD, EYES, EARS, NOSE AND THROAT: +3 days of increasing sore throat with swallowing. No change in vision. No ear pain or discharge. CARDIOVASCULAR: No chest pain or shortness of breath RESPIRATORY: No cough, wheezing, or hemoptysis. GASTROINTESTINAL: +Generalized abdominal pain w/out nausea, vomiting, diarrhea or constipation. GENITOURINARY: +Vaginal itching with dysuria MUSCULOSKELETAL: No joint or muscle swelling or pain. No neck or back pain. SKIN: No rash NEUROLOGIC: No headache, vertigo, loss of consciousness, or change in strength/ sensation. ENDOCRINE: No increased thirst. No abnormal weight change HEMATOLOGIC/LYMPHATIC: No anemia, easy bleeding, or history of blood clots. ALLERGIC/IMMUNOLOGIC: No hives or skin allergy. *Physical Exam - Vital Signs Last Vital Signs Temp Pulse Resp BP Pulse Ox 98.4 F 79 63 H 132/57 98 05/03/18 18:00 05/03/18 18:00 05/03/18 18:00 05/03/18 18:00 05/03/18 18:00 - Physical Exam Comments: 05/03/18 19:03 GENERAL: Awake, alert, and fully oriented, in no acute distress HEAD: No signs of trauma, normocephalic, atraumatic EYES: PERRLA, EOMI, sclera anicteric, conjunctiva clear ENT: Auricles normal inspection, hearing grossly normal, nares patent, oropharynx clear without exudates. Moist mucosa NECK: Normal ROM, supple, no lymphadenopathy, JVD, or masses LUNGS: No distress, speaks full sentences, clear to auscultation bilaterally HEART: Regular rate and rhythm, normal S1 and S2, no murmurs, rubs or gallops, peripheral pulses normal and equal bilaterally. ABDOMEN: +generalized distractable abdominal TTP in all quadrants. Soft, normoactive bowel sounds. No guarding, no rebound. No masses EXTREMITIES: Normal inspection, Normal range of motion, no edema. No clubbing or cyanosis. NEUROLOGICAL: Cranial nerves II through XII grossly intact. Normal speech, normal gait, no focal sensorimotor deficits SKIN: Warm, Dry, normal turgor, no rashes or lesions noted. : No CMT, os closed, no adnexal tenderness, no blood noted in vaginal vault. ED Treatment Course - LABORATORY CBC & Chemistry Diagram: 05/03/18 19:39 05/03/18 19:39 Medical Decision Making - Medical Decision Making 05/03/18 19:58 Ms. Gregg is a 28 yo female w/ pmh as described who presents for evaluation of throat pain with vaginal itching/dysuria and abdominal pain. According workup started with UA/labs/pain control. Upon repeat evaluation patient also requested HIV test (sent). 05/03/18 20:50 Labs grossly unconcerning as below. Patient reports relief from abdominal symptoms on repeat exam. 05/03/18 22:38 Given patient's urinary symptoms with negative UA will treat empirically for GC with rocephin and outpatient doxycyclin. Patient also requesting text so she knows for sure if she was infected. GC sent for further evaluation. Discharging patient to home. Laboratory Results - last 24 hr 05/03/18 05/03/18 05/03/18 19:39 19:39 19:39 WBC 8.1 Corrected WBC (auto) RBC 4.82 Hgb 10.2 L Hct 31.8 L MCV 66.1 L MCH 21.1 L MCHC 31.9 L RDW 15.5 Plt Count 298 MPV 9.0 Absolute Neuts (auto) 5.5 Neutrophils % 67.1 Lymphocytes % 22.9 Monocytes % 7.9 Eosinophils % 1.4 Basophils % 0.7 Nucleated RBC % 0 Hypochromia 2+ Platelet Estimate Adequate Platelet Comment Polychromasia 1+ Poikilocytosis 1+ Anisocytosis 1+ Microcytosis 1+ Macrocytosis 1+ Ovalocytes 1+ Sodium 140 Potassium 3.9 Chloride 107 Carbon Dioxide 25 Anion Gap 8 BUN 12 Creatinine 0.7 Creat Clearance w eGFR > 60 Random Glucose 86 Calcium 8.6 Total Bilirubin 0.2 AST 14 L ALT 14 Alkaline Phosphatase 64 Total Protein 7.5 Albumin 3.7 Urine Color Yellow Urine Appearance Clear Urine pH 5.0 Ur Specific [place] 1.026 Urine Protein Negative Urine Glucose (UA) Negative Urine Ketones Negative Urine Blood Negative Urine Nitrite Negative Urine Bilirubin Negative Urine Urobilinogen Negative Ur Leukocyte Esterase Negative Urine HCG, Qual Negative HIV 1&2 Ag/Ab, 4th Gen HIV 1&2 Antibody Screen Negative HIV P24 Antigen Negative *DC/Admit/Observation/Transfer Diagnosis at time of Disposition: Sore throat, Dysuria - Discharge Dispostion Disposition: HOME - Prescriptions Prescriptions: Doxycycline Hyclate 100 mg PO BID #14 tablet - Referrals Referrals: Asha Rodgers MD [Primary Care Provider] - - Patient Instructions Printed Discharge Instructions: Sore Throat, DI for Dysuria -- Adult Additional Instructions: Please follow-up with primary care provider for further evaluation. A prescription has been called in to your pharmacy. Please take all medications as written. Return to ER if any fever, chills, continued pain, difficulty taking medications, or other concerning symptoms. - Post Discharge Activity
[2018-05-03] MEDS ORDERED: SODIUM CHLORIDE 1,000 ML IV STA (19:12)
[2018-05-03] MEDS ORDERED: MAG HYDROX/AL HYDROX/SIMETH 30 ML UNIT-DOSE CUP PO ONE (19:12)
[2018-05-03] MEDS ORDERED: FAMOTIDINE 20 MG/50 ML IVPB 20 MG/50 ML MG IVPB ONE (19:12)
[2018-05-03] MEDS ORDERED: ACETAMINOPHEN 500 MG TABLET (FP) PO ONE (19:30)
[2018-05-03] MEDS ORDERED: ACETAMINOPHEN 500 MG TABLET (FP) ONE (19:52)
[2018-05-03 20:18] LABS: BASO % 0.7 % (0-2.0); EOS % 1.4 % (0-4.5); HEMATOCRIT 31.8 % (32.4-45.2); HEMOGLOBIN 10.2 GM/dL (10.7-15.3); LYMPH % 22.9 % (8-40); MCH 21.1 pg (25.7-33.7); MCHC 31.9 g/dl (32.0-36.0); MEAN CELL VOLUME 66.1 fl (80-96); MONO % 7.9 % (3.8-10.2); NEUT % 67.1 % (42.8-82.8); PLATELET COUNT 298 K/MM3 (134-434); RBC 4.82 M/mm3 (3.60-5.2); RDW 15.5 % (11.6-15.6); WHITE BLOOD COUNT 8.1 K/mm3 (4.0-10.0)
[2018-05-03 20:19] LABS: URINE APPEARANCE CLEAR; URINE BILIRUBIN NEGATIVE (<2.0 mg/dL); URINE COLOR YELLOW; URINE GLUCOSE (UA) NEGATIVE (NEGATIVE); URINE KETONE NEGATIVE (NEGATIVE); URINE LEUK ESTERASE NEGATIVE (NEGATIVE); URINE NITRITE NEGATIVE (NEGATIVE); URINE PROTEIN NEGATIVE (NEGATIVE); URINE UROBILINOGEN NEGATIVE mg/dL (0.2-1.0)
[2018-05-03 20:22] LABS: ADD RBC MORPHOLOGY YES
[2018-05-03 20:26] LABS: HCG,QUALITATIVE URINE NEGATIVE
[2018-05-03 20:43] LABS: ALBUMIN 3.7 g/dl (3.4-5.0); ALK PHOS 64 U/L (45-117); ANION GAP 8 (8-16); BILIRUBIN,TOTAL 0.2 mg/dL (0.2-1.0); BLOOD UREA NITROGEN 12 mg/dL (7-18); CALCIUM 8.6 mg/dL (8.5-10.1); CHLORIDE 107 mmol/L (98-107); CO2 25 mmol/L (21-32); CREATININE 0.7 mg/dL (0.55-1.02); GLUCOSE,RANDOM 86 mg/dL (74-106); POTASSIUM 3.9 mmol/L (3.5-5.1); SGOT/AST 14 U/L (15-37); SGPT/ALT 14 U/L (12-78); SODIUM 140 mmol/L (136-145); TOT PROT 7.5 g/dl (6.4-8.2)
[2018-05-03 21:21] LABS: ANISOCYTOSIS 1+; MACROCYTOSIS 1+; OVALOCYTE 1+; PLATELET ESTIMATE ADEQUATE
[2018-05-03] MEDS ORDERED: DOXYCYCLINE HYCLATE 100 MG CAPSULE PO ONE ×2 (22:36→22:44)
[2018-05-03] MEDS ORDERED: cefTRIAXone SODIUM 1 GM VIAL ONE (22:44)
--- NOTE | 2018-05-03 23:04 | PDOC ---
Attending Attestation - Resident Resident Name: Adams Jimenes - ED Attending Attestation I have performed the following: I have examined & evaluated the patient, The case was reviewed & discussed with the resident, I agree w/resident's findings & plan, Exceptions are as noted - HPI HPI: 05/03/18 22:56 Patient is a 28 year old female with a significant past medical history of asthma, anemia, bipolar do, and GERD, who presents to the ED with multiple complaints x 3 days. Pt reports 3 days of LUQ pain, sore throat, pain when swallowing, vaginal itching, and dysuria. Patient reports all symptoms began at the same time and were initially tolerable, but states she can no longer take it, prompting her to come into the ED for further evaluation. Patient requests HIV and GC/CT testing. States she is sexually active with only her and has no hx of STIs. Denies vaginal DC. Denies chest pain, Sob. Denies nausea, vomiting. Denies contact with sick individuals, out of state travelling. Denies fevers,chills. Denies diarrhea, constipation, hematuria. Denies weakness/numbness. Denies any other symptoms. Allergies: Dr. Duncan Social history: No smoking. No alcohol. No illicit drugs. Surgical history: None PMD: Dr. River Joshi ([phone]) - Physicial Exam PE: 05/03/18 22:58 GENERAL: Awake, alert, and fully oriented, in no acute distress EYES: PERRLA, EOMI, sclera anicteric, conjunctiva clear ENT: Nares patent, oropharynx clear without exudates. Moist mucosa NECK: Normal ROM, supple, no lymphadenopathy, JVD, or masses LUNGS: Breath sounds equal, clear to auscultation bilaterally. No wheezes, and no crackles HEART: Regular rate and rhythm, normal S1 and S2, no murmurs, rubs or gallops ABDOMEN: Soft, nontender, normoactive bowel sounds. No guarding, no rebound. No masses EXTREMITIES: Normal range of motion, no edema. No clubbing or cyanosis. No cords, erythema, or tenderness NEUROLOGICAL: Normal speech, cranial nerves intact, negative pronator drift, 5/ 5 strength in all 4 extremities, normal sensation to light touch in all 4 extremities, normal cerebellar exam, normal gait, normal reflexes and tone SKIN: Warm, Dry, normal turgor, no rashes or lesions noted. Pelvic exam as per Dr. Jimenes. - Medical Decision Making 05/03/18 22:58 28yo F presents to the ED with multiple complaints. Rapid strep test, basic labs , UA, HIV tests all unremarkable. Urine for GC/CT pending. Will treat empirically for GC/CT. Pt was given toradol for pain, feels a lot better. Requests DC home I discussed the physical exam findings, ancillary test results and final diagnoses with the patient. I answered all of the patient's questions. The patient was satisfied with the care received and felt comfortable with the discharge plan and treatment plan. The patient will call their primary care physician within 24 hours to arrange follow-up and will return to the Emergency Department with any new, persistent or worsening symptoms.
== END 2018-05-03 22:55 | disposition home or self-care (01) ==
LOC: JER 17:43
DX: J02.9 Acute pharyngitis, unspecified (principal); R30.0 Dysuria; D64.9 Anemia, unspecified; J45.909 Unspecified asthma, uncomplicated; K21.9 Gastro-esophageal reflux disease without esophagitis; F31.9 Bipolar disorder, unspecified; F41.9 Anxiety disorder, unspecified; F20.9 Schizophrenia, unspecified
CPT/HCPCS: 36415; 80053; 81003; 84703; 85025; 87070; 87086; 87389; 87430; 87491; 87591; 96372; 99284-25

== ENCOUNTER 2018-05-30 11:47 | Emergency (ER) | payer OTHER ==
[2018-05-30 12:00] VITALS: BP 108/65; PULSE 92; TEMP 98.2; BMI 35.2
--- NOTE | 2018-05-30 12:30 | PDOC ---
Attending Attestation - HPI HPI: 05/30/18 13:20 The patient is a 28 year old female, with a significant past medical history of schizophrenia, bipolar disorder, anemia, GERD, right ovarian cyst on prior CT, who presents to the emergency department with sudden onset of right lower quadrant pain, chest pain, and palpitations since last night. She states her chest pain radiates from left to right, 10/10 in severity, and stabbing sensation. She denies any radiation of chest pain to her back, neck, or extremities. She reportedly experienced similar pain in November. The patient denies shortness of breath, headache and dizziness. The patient denies fever, chills, nausea, vomit, diarrhea and constipation. The patient denies dysuria, frequency, urgency and hematuria. The patient denies STDs and reports protected sex with the same partner. Allergies: NKDA - Physicial Exam PE: 05/30/18 13:26 ROS: A complete review of 10 out of 10 review of systems is taken and is negative apart from what is previously mentioned below and in the HPI. Vitals: Triage vital signs reviewed General Appearance: No acute distress, well nourished, well developed Head: Atraumatic Eyes: Pupils equal reactive round, extraocular movement intact Neck: Supple; No nuchal rigidity Chest Wall: Nontender Cardiac: Regular rate and rhythm, no murmurs, no rubs, no gallops Lungs: Clear to auscultation bilateral, good air movement bilaterally Abdomen: + Mild right abdominal tenderness. Soft, nondistended, normal bowel sounds, Genitourinary: Rectal: Exam deferred Extremities: Full range of motion to all extremities, no cyanosis, clubbing, or edema Skin: Warm and dry, no rashes or lesions, no rash, no petechiae Psych: Normal mood, normal affect - Medical Decision Making 05/30/18 13:20 28 year old F with history of schizophrenia, bipolar disorder, anemia, GERD, right ovarian cyst on prior CT, presents to the ED with a sudden onset of right lower quadrant pain, chest pain, and palpitations last night. Plan: EKG, CXR, labs, meds 05/30/18 13:27 Documentation prepared by Bren Carlton, acting as medical device for Rufino Nguyen MD <Bren Carlton - Last Filed: 05/30/18 14:18> - Resident Resident Name: Hamzah Talbot - ED Attending Attestation I have performed the following: I have examined & evaluated the patient, The case was reviewed & discussed with the resident, I agree w/resident's findings & plan, Exceptions are as noted - Medical Decision Making Relation heart score 1 troponin negative nonischemic EKG. Labs within normal limits no fever no white count repeat abdominal examination 445 no right lower quadrant tenderness to palpation no rebound or guarding low suspicion at this time for appendicitis. Transvaginal ultrasound pending patient complaining of vaginal itching. We'll recommend OTC Monistat cream if no improvement in 1-2 days can follow up with PHYSICALLY IMPAIRED TE[employer] on Saturday Dr. Colbert to follow-up transvaginal ultrasound reports and reassess patient. <Rufino Nguyen - Last Filed: 05/30/18 16:49> Heart Score/ECG Review - ECG Impressions Comment:: 05/30/18 16:[address] elevations no T-wave inversions. Interpreted by me. <Rufino Nguyen - Last Filed: 05/30/18 16:49>
--- NOTE | 2018-05-30 12:53 | PDOC ---
History of Present Illness - General Chief Complaint: Pain Stated Complaint: PAIN Time Seen by Provider: 05/30/18 12:09 History Source: Patient Exam Limitations: No Limitations - History of Present Illness Initial Comments: 05/30/18 12:45 Ms. Gregg is a 28 yo F with a hx of schizophrenia (last hallucination 2016), asthma (last exacerbation and medication use 2016), and anemia (on iron supplements) presents to the ED with left chest pain with concurrent RLQ pain with dysuria since 12 am this morning. She describes the chest pain waking her up from sleep on the left chest radiating to her right chest with diaphoresis and chills. It is characterized as sharp, constant, and 10/10 without radiation to either arms, back, and neck. Concurrently, she had sudden onset of RLQ pain at 12am that is described as sharp, constant, 10/10 without radiation with concurrent dysuria and urinary frequency. Pertinent positives: she has a history of GERD and endorses palpitations with mild SOB with exertion. Pertinent negatives: Denies headache, fever, lightheadedness, melena, hematuria , hx of nephrolithiasis, vaginal discharge/bleeding, and hx of STDs. Pmhx: Schizophrenia, anemia, and asthma Shx: Denies Fhx: Denies cardiac disease Meds: Ranantodine, iron supplement, symbicort, and albuterol. Unsure of her psych meds. Allergies: Shellfish Social hx: Denies new stresses and denies smoking, alcohol, and substance abuse. Past History - Past Medical History Allergies/Adverse Reactions: Allergies Allergy/AdvReac Type Severity Reaction Status Date / Time shellfish derived Allergy Verified 05/14/18 00:50 Home Medications: Ambulatory Orders Omeprazole 20 mg PO DAILY 09/04/17 Albuterol Sulfate Inhaler - [Ventolin Hfa Inhaler -] 1 puff IH PRN 05/03/18 Doxycycline Hyclate 100 mg PO BID #14 tablet 05/03/18 Ferrous Sulfate [Iron] 325 mg PO DAILY 05/03/18 Ibuprofen 800 mg PO TID #30 tablet 05/14/18 Acetaminophen [Tylenol] 650 mg PO QID PRN #10 capsule 05/30/18 Miconazole Nitrate [Monistat 7] 45 gm VG HS #7 cream.appl 05/30/18 Anemia: Yes Asthma: Yes COPD: No GI Disorders: Yes (GERD) Psychiatric Problems: Yes (BIPOLAR,SCHIZOPHRENIA,DEPRESSION,ANXIETY DISORDER) - Immunization History Immunization Up to Date: Yes - Suicide/Smoking/Psychosocial Hx Smoking History: Never smoked Have you smoked in the past 12 months: No Hx Alcohol Use: No Drug/Substance Use Hx: No Substance Use Type: None Review of Systems - Review of Systems Able to Perform ROS?: Yes Constitutional: Yes: Chills, Diaphoresis. No: Fever HEENTM: No: Eye Pain, Ear Pain, Nose Pain, Throat Pain Respiratory: Yes: SOB with Exertion. No: Cough Cardiac (ROS): Yes: Chest Pain, Palpitations. No: Lightheadedness ABD/GI: No: Constipated, Diarrhea, Nausea, Rectal Bleeding, Vomiting, Tarry Stools : Yes: Dysuria, Frequency. No: Hematuria Musculoskeletal: No: Back Pain Integumentary: No: Rash Neurological: No: Headache Hematologic/Lymphatic: Yes: Anemia *Physical Exam - Vital Signs Last Vital Signs Temp Pulse Resp BP Pulse Ox 98.2 F 92 H 16 108/65 99 05/30/18 11:57 05/30/18 11:57 05/30/18 11:57 05/30/18 11:57 05/30/18 11:57 - Physical Exam General Appearance: Yes: Nourished, Appropriately Dressed HEENT: positive: Normal Voice Respiratory/Chest: positive: Lungs Clear, Normal Breath Sounds Cardiovascular: positive: Regular Rhythm, Regular Rate, S1, S2, Systolic Murmur (grade 1) Female Pelvic Exam: positive: normal external exam, adnexal tenderness (right and left adnexal tenderness. More acute tenderness on right versus left. ), vaginal bleeding (vaginal bleeding on cervix. ) Gastrointestinal/Abdominal: positive: Normal Bowel Sounds, Flat, Tenderness ( RLQ and RUQ tenderness), Hernia (chronic umbilical hernia and reducible. ). negative: Pulsatile Mass Musculoskeletal: negative: CVA Tenderness Integumentary: positive: Normal Color, Dry, Warm Neurologic: positive: Fully Oriented, Alert ED Treatment Course - LABORATORY CBC & Chemistry Diagram: 05/30/18 13:30 05/30/18 13:30 Medical Decision Making - Medical Decision Making 05/30/18 13:29 Ms. Gregg is a 28 yo F with a hx of schizophrenia, anemia, and right ovarian cyst on last ED visit in April 2018 who presents with chest and abdominal pain since 12am today. On previous visit, she had a 3.7 cm right ovarian cyst. 05/30/18 13:30 Initial vitals:" Initial Vital Signs Temp Pulse Resp BP Pulse Ox 98.2 F 92 H 16 108/65 99 05/30/18 11:57 05/30/18 11:57 05/30/18 11:57 05/30/18 11:57 05/30/18 11:57 Workup: Following tests ordered: CBC with diff, CMP, UA, Urine culture, GC culture, bhcg urine, EKG and troponins. 05/30/18 13:33 *DC/Admit/Observation/Transfer Diagnosis at time of Disposition: Left ovarian cyst, Yeast infection of the vagina Abdominal pain Qualifiers: Abdominal location: right lower quadrant Qualified Code(s): R10.31 - Right lower quadrant pain - Discharge Dispostion Disposition: HOME Decision to Admit order: No - Prescriptions Prescriptions: Acetaminophen [Tylenol] 650 mg PO QID PRN #10 capsule PRN Reason: Pain Miconazole Nitrate [Monistat 7] 45 gm VG HS #7 cream.appl - Referrals - Patient Instructions Printed Discharge Instructions: DI for Vaginal Yeast Infection, DI for Abdominal Pain-Adult, DI for Ovarian Cyst Additional Instructions: You have been diagnosed with abdominal pain, left ovarian cyst, and candidiasis of the vagina. Please return to the emergency department if your abdominal pain worsens, or develop a fever, or having any other concerning symptoms. Please follow up with your primary care doctor, Dr. Thapa in 1-2 days from emergency department discharge. - Post Discharge Activity
[2018-05-30] MEDS ORDERED: ACETAMINOPHEN 1000 MG/100 ML VIAL (NON FORMULARY) IVPB ONE (13:12)
[2018-05-30] MEDS ORDERED: SODIUM CHLORIDE 1,000 ML IV STA (13:13)
[2018-05-30] MEDS ORDERED: ACETAMINOPHEN INJECTION 100 ML IVPB ONE (13:18)
[2018-05-30 13:45] LABS: BASO % 0.9 % (0-2.0); EOS % 1.2 % (0-4.5); HEMATOCRIT 34.4 % (32.4-45.2); HEMOGLOBIN 10.6 GM/dL (10.7-15.3); LYMPH % 25.2 % (8-40); MCH 20.8 pg (25.7-33.7); MCHC 30.9 g/dl (32.0-36.0); MEAN CELL VOLUME 67.2 fl (80-96); MEAN PLT VOLUME 9.3 fl (7.5-11.1); MONO % 8.9 % (3.8-10.2); NEUT % 63.8 % (42.8-82.8); PLATELET COUNT 313 K/MM3 (134-434); RBC 5.12 M/mm3 (3.60-5.2); RDW 16.1 % (11.6-15.6); WHITE BLOOD COUNT 7.7 K/mm3 (4.0-10.0)
[2018-05-30 14:03] LABS: URINE APPEARANCE CLEAR; URINE BILIRUBIN NEGATIVE (<2.0 mg/dL); URINE COLOR STRAW; URINE GLUCOSE (UA) NEGATIVE (NEGATIVE); URINE KETONE NEGATIVE (NEGATIVE); URINE LEUK ESTERASE NEGATIVE (NEGATIVE); URINE NITRITE NEGATIVE (NEGATIVE); URINE PROTEIN NEGATIVE (NEGATIVE); URINE UROBILINOGEN NEGATIVE mg/dL (0.2-1.0)
[2018-05-30 14:06] LABS: HCG,QUALITATIVE URINE NEGATIVE
[2018-05-30 14:07] LABS: EPI CELLS RARE /HPF (FEW)
[2018-05-30 14:18] LABS: ALBUMIN 3.7 g/dl (3.4-5.0); ANION GAP 6 (8-16); BILIRUBIN,TOTAL 0.1 mg/dL (0.2-1.0); BLOOD UREA NITROGEN 10 mg/dL (7-18); CALCIUM 9.3 mg/dL (8.5-10.1); CHLORIDE 105 mmol/L (98-107); CO2 27 mmol/L (21-32); CREATININE 0.8 mg/dL (0.55-1.02); GLUCOSE,RANDOM 90 mg/dL (74-106); POTASSIUM 4.2 mmol/L (3.5-5.1); SGOT/AST 12 U/L (15-37); SGPT/ALT 13 U/L (12-78); SODIUM 138 mmol/L (136-145); TOT PROT 7.5 g/dl (6.4-8.2)
[2018-05-30 14:20] LABS: ALK PHOS 76 U/L (45-117)
[2018-05-30 15:55] LABS: PLATELET ESTIMATE ADEQUATE
--- NOTE | 2018-05-31 10:10 | EKG ---
Test Reason : Blood Pressure : / mmHG Vent. Rate : 070 BPM Atrial Rate : 070 BPM P-R Int : 138 ms QRS Dur : 078 ms QT Int : 380 ms P-R-T Axes : 016 019 017 degrees QTc Int : 410 ms NORMAL SINUS RHYTHM NORMAL ECG WHEN COMPARED WITH ECG OF 20-OCT-2017 09:29, NO SIGNIFICANT CHANGE WAS FOUND Confirmed by ANDREINA POLANCO MD ([id number]) on 05/31/2018 10:10:26 AM Referred By: Confirmed By:ANDREINA POLANCO MD
== END 2018-05-30 23:14 | disposition home or self-care (01) ==
LOC: JER 11:47
PROC: 3E0337Z Introduction of Electrolytic and Water Balance Substance into Peripheral Vein, Percutaneous Approach (ICD-10-PCS; principal; 2018-05-30)
PROC: 3E033NZ Introduction of Analgesics, Hypnotics, Sedatives into Peripheral Vein, Percutaneous Approach (ICD-10-PCS; 2018-05-30)
DX: N83.202 Unspecified ovarian cyst, left side (principal); B37.3 Candidiasis of vulva and vagina; N83.201 Unspecified ovarian cyst, right side; R10.31 Right lower quadrant pain; F20.9 Schizophrenia, unspecified; F31.9 Bipolar disorder, unspecified; F41.9 Anxiety disorder, unspecified; D50.9 Iron deficiency anemia, unspecified
CPT/HCPCS: 36415; 74176-TC; 76830-TC; 80053; 81003; 81015; 82550; 82553; 84484; 84703; 85025; 87086; 87491; 87591; 93005; 93010; 96361; 96374; 99285-25; J0131; J7030

== ENCOUNTER 2018-06-29 11:40 | Emergency (ER) | payer OTHER ==
[2018-06-29 12:12] VITALS: BMI 29.9
--- NOTE | 2018-06-29 12:15 | PDOC ---
History of Present Illness - General Chief Complaint: Pain Stated Complaint: Palpitations Time Seen by Provider: 06/29/18 12:14 - History of Present Illness Initial Comments: The patient is a 28F with a history of asthma, cardiomegaly, schizophrenia, and GERD who presents with 2.5 hours of left chest/breast pain that does not radiate , woke her from sleep, is not associated with any other symptoms, and she had not noticed anything that makes it better or worse. She denies having had pain like this in the past. The patient also reports unrelated, sharp, umbilical abdominal pain that does not radiate at the site of her primary umbilical hernia. It has always been reducible and she denies symptoms of incarceration or strangulation (no N/V, no changes in BM, and always reducible). She denies dysuria, or blood in her urine or stool. LMP 06/17/2018 06/29/18 12:33 Past History - Past Medical History Allergies/Adverse Reactions: Allergies Allergy/AdvReac Type Severity Reaction Status Date / Time egg Allergy Verified 06/29/18 12:07 shellfish derived Allergy Verified 06/29/18 12:07 SEA FOOD Allergy Uncoded 06/29/18 12:07 Home Medications: Ambulatory Orders NK [No Known Home Medication] 06/21/18 Anemia: Yes Asthma: Yes COPD: No DVT: No GI Disorders: Yes (GERD) Psychiatric Problems: Yes (BIPOLAR,SCHIZOPHRENIA,DEPRESSION,ANXIETY DISORDER) - Reproductive History (#): 0 Para: 0 Polycystic Ovaries: Yes Spontaneous : 0 - Immunization History Immunization Up to Date: Yes - Suicide/Smoking/Psychosocial Hx Smoking History: Never smoked Have you smoked in the past 12 months: No Hx Alcohol Use: No Drug/Substance Use Hx: No Substance Use Type: None Review of Systems - Review of Systems Able to Perform ROS?: Yes Comments:: GENERAL/CONSTITUTIONAL: No fever or chills. No weakness HEAD, EYES, EARS, NOSE AND THROAT: No change in vision. No ear pain or discharge. No sore throat CARDIOVASCULAR: +chest pain; no shortness of breath RESPIRATORY: No cough, wheezing, or hemoptysis GASTROINTESTINAL: per HPI GENITOURINARY: No dysuria, frequency, or change in urination MUSCULOSKELETAL: No joint or muscle swelling or pain. No neck or back pain SKIN: No rash NEUROLOGIC: No headache, vertigo, loss of consciousness, or change in strength/ sensation ENDOCRINE: No increased thirst. No abnormal weight change HEMATOLOGIC/LYMPHATIC: No anemia, easy bleeding, or history of blood clots ALLERGIC/IMMUNOLOGIC: No hives or skin allergy 06/29/18 12:51 Is the patient limited Afghan proficient: No *Physical Exam - Vital Signs Last Vital Signs Temp Pulse Resp BP Pulse Ox 99.5 F 88 16 110/70 99 06/29/18 12:09 06/29/18 12:09 06/29/18 12:09 06/29/18 12:09 06/29/18 12:09 - Physical Exam Comments: GENERAL: Awake, alert, and fully oriented, in no acute distress HEAD: No signs of trauma, normocephalic, atraumatic EYES: PERRL, EOMI, sclera anicteric, conjunctiva clear ENT: Hearing grossly normal, nares patent, oropharynx clear without exudates. Moist mucosa NECK: Normal ROM, supple, no lymphadenopathy LUNGS: No distress, speaks full sentences, clear to auscultation bilaterally HEART:Regular rate and rhythm, normal S1 and S2, no murmurs appreciated, peripheral pulses normal and equal bilaterally CHEST: left sided mild chest TTP; no breast mass palpated ABDOMEN: Soft, mild TTP at umbilicus, normoactive bowel sounds. No guarding, no rebound EXTREMITIES : Normal inspection, Normal range of motion, no edema. No clubbing or cyanosis NEUROLOGICAL: Cranial nerves II through XII grossly intact. Normal speech, normal gait, no focal sensorimotor deficits SKIN: Warm, Dry, normal turgor, no rashes or lesions noted 06/29/18 12:44 ED Treatment Course - LABORATORY CBC & Chemistry Diagram: 06/29/18 13:11 06/29/18 13:11 Medical Decision Making - Medical Decision Making The patient is a 28F with a history of asthma, cardiomegaly, schizophrenia, and GERD who presents with 2.5 hours of left chest/breast pain as well as umbilical abdominal pain. Ddx: PNA, PNX, Msk pain; possible hernia, UTI, less likely gastritis ED Course: CMP, CBC, UA, Upreg CXR, ECG Tyenol 1g IV once Maalox PO once 06/29/18 12:52 Pain minimally improved s/p Tylenol Will give Toradol 30 IM UA without evidence of UTI No leukocytosis Lymacie wnl 06/29/18 14:12 Pain improved s/p Toradol Plan to discharge pt with PCP f/u. She also wished to f/u with cards and surgery. Will give her her Jacker's referral and also a surgery referral for her possible umbilical hernia Pt was discharged home/self-care. Pt was provided written discharge instructions. Additional verbal instructions were given and discussed with Pt. Pt was asked to return to the ED immediately for any new or concerning or if they worsen. Pt was in agreement, endorsed understanding, and questions were answered. 06/29/18 16:02 *DC/Admit/Observation/Transfer Diagnosis at time of Disposition: Abdominal pain Qualifiers: Abdominal location: periumbilical Qualified Code(s): R10.33 - Periumbilical pain Chest pain Qualifiers: Chest pain type: other chest pain Qualified Code(s): R07.89 - Other chest pain - Discharge Dispostion Disposition: HOME Condition at time of disposition: Stable Decision to Admit order: No - Referrals Referrals: Madelyn Holman [Other] Dionte Uribe MD [Staff Physician] - Sandrine Washington MD [Staff Physician] - - Patient Instructions Printed Discharge Instructions: DI for Abdominal Pain-Adult, DI for Chest Pain Additional Instructions: You were seen today in the Emergency Room for chest and abdominal pain. You were found to have a normal ECG, no urinary tract infection, and no signs of infection. Please refer to the handouts provided at discharge. Return to the Emergency Department if you develop fevers, have worsening symptoms, or develop new concerning symptoms. Please also follow up with your PCP within the next 1- 3 days. - Post Discharge Activity
--- NOTE | 2018-06-29 12:18 | PDOC ---
Attending Attestation - Resident Resident Name: Sincere Sharma - ED Attending Attestation I have performed the following: I have examined & evaluated the patient, The case was reviewed & discussed with the resident, I agree w/resident's findings & plan, Exceptions are as noted - HPI HPI: 06/29/18 13:12 The patient is a 28-year-old female present to the emergency department with chest pain since morning. The patient reports a constant pain since presentation to the L. anterior chest, non-radiating. The patient reports the pain isnt made worse or better by anything. Denies shortness of breath. Denies diaphoresis, leg swelling, nausea, vomiting or lightheadedness. The patient states she was told in the past she had cardiomegaly, denies being compliant with any medication. The patient reports an additional concern of pain to the umbilical region. The patient states a hernia to the umbilical area, that is sticking out more than usual, pain with palpation. The patient states she had a normal bowel movement earlier today, denies passing any gas today. Denies vaginal bleeding or discharge, dysuria, hematuria. Denies changes in bowel habits. Pmhx: Bipolar, asthma, depression, gastric reflux, anemia, Cardiomegaly PSHx; N/A Allergies:NKDA FH:N/A Social Hx: No smoking history. No ETOH or drug use reported. PMD: Dr. River Joshi ([phone]) - Physicial Exam PE: 06/29/18 13:21 GENERAL: Awake, alert, and fully oriented, in no acute distress HEAD: No signs of trauma EYES: PERRLA, EOMI, sclera anicteric, conjunctiva clear ENT: Auricles normal inspection, hearing grossly normal, nares patent, oropharynx clear without exudates. Moist mucosa NECK: Normal ROM, supple, no lymphadenopathy, JVD, or masses LUNGS: Breath sounds equal, clear to auscultation bilaterally. No wheezes, and no crackles HEART: Regular rate and rhythm, normal S1 and S2, no murmurs, rubs or gallops ABDOMEN: (+) Mild periumbilical tenderness without detectable umbilical hernia. Soft, normoactive bowel sounds. No guarding or rebound. No masses. EXTREMITIES: Normal range of motion, no edema. No clubbing or cyanosis. No cords, erythema, or tenderness NEUROLOGICAL: Cranial nerves II through XII grossly intact. Normal speech, normal gait SKIN: Warm, Dry, normal turgor, no rashes or lesions noted. - Medical Decision Making 06/29/18 12:57 Documentation prepared by Juany Maldonado, acting as medical coordinator pesticide use for Hoa Valerio MD. <Juany Maldonado - Last Filed: 06/29/18 14:18> - Medical Decision Making 06/29/18 15:59 Pt presents to the ED complaining of atypical chest pain and periumbilical pain. No risk factors for cardiac disease and normal EKG. PERC negative. Also complaining of periumbilical pain. Abdomen is non tender to deep palpation on my exam. Labs are unremarkable. Patient feels improived. will discharge home. 06/29/18 16:02 <Hoa Valerio - Last Filed: 06/29/18 16:03>
[2018-06-29] MEDS ORDERED: ACETAMINOPHEN 325 MG TABLET (FP) PO ONE (12:29)
[2018-06-29] MEDS ORDERED: MAG HYDROX/AL HYDROX/SIMETH 30 ML UNIT-DOSE CUP PO ONE (12:29)
[2018-06-29] MEDS ORDERED: ACETAMINOPHEN 1000 MG/100 ML VIAL (NON FORMULARY) IVPB ONE (12:44)
[2018-06-29] MEDS ORDERED: MAG HYDROX/AL HYDROX/SIMETH 30 ML UNIT-DOSE CUP ONE (13:22)
[2018-06-29] MEDS ORDERED: ACETAMINOPHEN 325 MG TABLET (FP) ONE (13:22)
[2018-06-29 13:30] LABS: HEMATOCRIT 33.2 % (32.4-45.2); HEMOGLOBIN 10.4 GM/dL (10.7-15.3); MCH 21.1 pg (25.7-33.7); MCHC 31.3 g/dl (32.0-36.0); MEAN CELL VOLUME 67.4 fl (80-96); MEAN PLT VOLUME 9.5 fl (7.5-11.1); PLATELET COUNT 293 K/MM3 (134-434); RBC 4.92 M/mm3 (3.60-5.2); RDW 15.9 % (11.6-15.6); WHITE BLOOD COUNT 6.6 K/mm3 (4.0-10.0)
[2018-06-29 13:38] LABS: ALBUMIN 3.6 g/dl (3.4-5.0); ANION GAP 6 (8-16); BILIRUBIN,TOTAL 0.1 mg/dL (0.2-1.0); BLOOD UREA NITROGEN 13 mg/dL (7-18); CALCIUM 8.7 mg/dL (8.5-10.1); CHLORIDE 106 mmol/L (98-107); CO2 27 mmol/L (21-32); CREATININE 0.7 mg/dL (0.55-1.02); GLUCOSE,RANDOM 86 mg/dL (74-106); POTASSIUM 4.7 mmol/L (3.5-5.1); SGOT/AST 15 U/L (15-37); SGPT/ALT 16 U/L (12-78); SODIUM 139 mmol/L (136-145); TOT PROT 7.3 g/dl (6.4-8.2)
[2018-06-29 13:39] LABS: ALK PHOS 69 U/L (45-117); LIPASE 217 U/L (73-393)
[2018-06-29] MEDS ORDERED: KETOROLAC TROMETHAMINE 30 MG/1 ML VIAL IM ONE (13:56)
[2018-06-29 14:02] LABS: URINE APPEARANCE CLEAR; URINE BILIRUBIN NEGATIVE (<2.0 mg/dL); URINE COLOR LTYELLOW; URINE GLUCOSE (UA) NEGATIVE (NEGATIVE); URINE KETONE NEGATIVE (NEGATIVE); URINE LEUK ESTERASE NEGATIVE (NEGATIVE); URINE NITRITE NEGATIVE (NEGATIVE); URINE PROTEIN NEGATIVE (NEGATIVE); URINE UROBILINOGEN NEGATIVE mg/dL (0.2-1.0)
[2018-06-29] MEDS ORDERED: KETOROLAC TROMETHAMINE 30 MG/1 ML VIAL ONE (14:11)
[2018-06-29 16:19] VITALS: BP 105/64; PULSE 74; TEMP 98.1
--- NOTE | 2018-06-29 19:13 | EKG ---
Test Reason : Blood Pressure : / mmHG Vent. Rate : 079 BPM Atrial Rate : 079 BPM P-R Int : 152 ms QRS Dur : 074 ms QT Int : 380 ms P-R-T Axes : 041 023 028 degrees QTc Int : 435 ms NORMAL SINUS RHYTHM WITH SINUS ARRHYTHMIA NORMAL ECG Confirmed by MD YAYA, CARLOS ([id number]) on 06/29/2018 7:13:39 PM Referred By: Confirmed By:CARLOS JAVIER MD
== END 2018-06-29 16:18 | disposition home or self-care (01) ==
LOC: JER 11:40
PROC: 3E0233Z Introduction of Anti-inflammatory into Muscle, Percutaneous Approach (ICD-10-PCS; principal; 2018-06-29)
DX: R07.89 Other chest pain (principal); R10.33 Periumbilical pain; J45.909 Unspecified asthma, uncomplicated; F20.9 Schizophrenia, unspecified; F31.9 Bipolar disorder, unspecified; F41.9 Anxiety disorder, unspecified; K21.9 Gastro-esophageal reflux disease without esophagitis; I51.7 Cardiomegaly
CPT/HCPCS: 36415; 71046-TC-FY; 80053; 81003; 83690; 84703; 85027; 93005; 93010; 96372; 99283-25

== ENCOUNTER 2018-08-05 12:33 | Emergency (ER) | payer OTHER ==
[2018-08-05 13:06] VITALS: BP 120/73; PULSE 98; TEMP 98.6; BMI 37.0
[2018-08-05] MEDS ORDERED: ACETAMINOPHEN 500 MG TABLET (FP) PO ONE (13:49)
--- NOTE | 2018-08-05 13:50 | PDOC ---
History of Present Illness - General Chief Complaint: Sore Throat Stated Complaint: COUGHING/LUMP SIDE THROAT/ITCHING/PAIN IN THROAT Time Seen by Provider: 08/05/18 13:46 - History of Present Illness Initial Comments: 08/05/18 13:49 28-year-old female with sore throat times one day without any other associated symptoms. Past medical history significant for anemia and acid reflux. Past History - Past Medical History Allergies/Adverse Reactions: Allergies Allergy/AdvReac Type Severity Reaction Status Date / Time egg Allergy Verified 08/05/18 13:06 shellfish derived Allergy Verified 08/05/18 13:06 SEA FOOD Allergy Uncoded 08/05/18 13:06 Home Medications: Ambulatory Orders NK [No Known Home Medication] 06/21/18 Anemia: Yes Asthma: Yes COPD: No DVT: No GI Disorders: Yes (GERD) Psychiatric Problems: Yes (BIPOLAR,SCHIZOPHRENIA,DEPRESSION,ANXIETY DISORDER) - Reproductive History (#): 0 Para: 0 Polycystic Ovaries: Yes Spontaneous : 0 - Immunization History Immunization Up to Date: Yes - Suicide/Smoking/Psychosocial Hx Smoking History: Never smoked Have you smoked in the past 12 months: No Hx Alcohol Use: No Drug/Substance Use Hx: No Substance Use Type: None Review of Systems - Review of Systems HEENTM: Yes: Throat Pain All Other Systems: Reviewed and Negative *Physical Exam - Vital Signs Last Vital Signs Temp Pulse Resp BP Pulse Ox 98.6 F 98 H 18 120/73 99 08/05/18 13:02 08/05/18 13:02 08/05/18 13:02 08/05/18 13:02 08/05/18 13:02 - Physical Exam Comments: HEAD: NC/AT EYES: Conjuntiva clear Ears: Canals and TM's normal NOSE: No d/c THROAT: Moist mucous membrances, oral pharanx clear, uvula midline NECK: Supple with left anterior cervical adenopathy CARDIAC: S1 S2 LUNGS: CTA Full and Equal breath sounds ABDOMEN: Soft NT ND MS: Full ROM in all joints without edema NEUROLOGIC: No gross sensory or motor deficits, NVID SKIN: Normal color and temperature no lesions or rashes 08/05/18 13:49 *DC/Admit/Observation/Transfer Diagnosis at time of Disposition: Viral pharyngitis - Discharge Dispostion Disposition: HOME Condition at time of disposition: Stable Decision to Admit order: No - Referrals Referrals: Stefan Anderson [Non Staff, Medical] - - Patient Instructions Printed Discharge Instructions: Viral Pharyngitis, DI for Viral Pharyngitis Additional Instructions: Return to the emergency room should symptoms worsen or go unresolved. Please follow-up with the primary care physician I recommended fever in 2-3 days for further evaluation and treatment options. May take Tylenol for any pain or discomfort he may have. Please take Tylenol as directed. - Post Discharge Activity
== END 2018-08-05 14:34 | disposition home or self-care (01) ==
LOC: JERFT 12:33
DX: J02.9 Acute pharyngitis, unspecified (principal); B97.89 Other viral agents as the cause of diseases classified elsewhere; K21.9 Gastro-esophageal reflux disease without esophagitis; D64.9 Anemia, unspecified; J45.909 Unspecified asthma, uncomplicated; F31.9 Bipolar disorder, unspecified; F20.9 Schizophrenia, unspecified; F32.9 Major depressive disorder, single episode, unspecified; F41.9 Anxiety disorder, unspecified
CPT/HCPCS: 87070; 87186; 87430; 99281-25

== ENCOUNTER 2018-08-23 20:43 | Emergency (ER) | payer OTHER ==
[2018-08-23 20:59] VITALS: BP 109/51; PULSE 77; TEMP 97.8; BMI 37.0
--- NOTE | 2018-08-23 21:34 | PDOC ---
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 Worse with deep breath, no alleviating factors. No recent travel, leg swelling. No OCP or hormonal control use. No prior similar symptoms. LMP approx 2 months ago. - Physicial Exam PE: GENERAL: Awake, alert, and fully oriented, in no acute distress HEAD: No signs of trauma EYES: PERRLA, EOMI, sclera anicteric, conjunctiva clear ENT: Auricles normal inspection, hearing grossly normal, nares patent, oropharynx clear without exudates. Moist mucosa NECK: Normal ROM, supple, no lymphadenopathy, JVD, or masses LUNGS: Breath sounds equal, clear to auscultation bilaterally. No wheezes, and no crackles. +Reproducible tenderness to sternum. HEART: Regular rate and rhythm, normal S1 and S2, no murmurs, rubs or gallops ABDOMEN: Soft, nontender, normoactive bowel sounds. No guarding, no rebound. No masses EXTREMITIES: Normal range of motion, no edema. No clubbing or cyanosis. No cords, erythema, or tenderness NEUROLOGICAL: Cranial nerves II through XII grossly intact. Normal speech, normal gait SKIN: Warm, Dry, normal turgor, no rashes or lesions noted. - Medical Decision Making 08/23/18 22:19 EKG reassuring. Exam shows reproducible cp to sternal area. Likely MSK pain. Will obtain UCG, as her last period was >2 months ago. 08/24/18 00:13 UCG positive, discussed with patient. Stable for DC home. Heart Score/ECG Review - ECG Impressions Comment:: 08/23/18 22:09 EKG read 20:58- NSR 78 bpm, no acute ST/T changes
--- NOTE | 2018-08-23 21:48 | PDOC ---
History of Present Illness - General Chief Complaint: Chest Pain Stated Complaint: CHEST PAIN Time Seen by Provider: 08/23/18 21:15 - History of Present Illness Initial Comments: 08/23/18 21:40 28 yo female pmh of GERD, gallstones (still has gall bladder) ovarian cyst and asthma presents to the ED for sudden onset CP that woke her up out of sleep at 8 pm today. Pt describes pain as sharp and stabbing 10/10, non radiating pain made worse with bending forward and movement. Pain is located focally just lateral to sternum by the 4th rib. Pain is persistent, not increasing in intensity. Did not take anything for the pain and denies hx of smoking, sudden cardiac or heart disease in the family. Denies N/V/F/C, SOB or abdominal pain. Last menstrual period 2 months ago which is unusual for pt. Past History - Past Medical History Allergies/Adverse Reactions: Allergies Allergy/AdvReac Type Severity Reaction Status Date / Time egg Allergy Verified 08/23/18 21:00 shellfish derived Allergy Verified 08/23/18 21:00 SEA FOOD Allergy Uncoded 08/23/18 21:00 Home Medications: Ambulatory Orders Amoxicillin/Potassium Clav [Augmentin 875-125 Tablet] 1 each PO BID #20 tablet 08/08/18 Anemia: Yes Asthma: Yes COPD: No DVT: No GI Disorders: Yes (GERD) Psychiatric Problems: Yes (BIPOLAR,SCHIZOPHRENIA,DEPRESSION,ANXIETY DISORDER) - Reproductive History (#): 0 Para: 0 Polycystic Ovaries: Yes Spontaneous : 0 - Immunization History Immunization Up to Date: Yes - Suicide/Smoking/Psychosocial Hx Smoking History: Never smoked Have you smoked in the past 12 months: No Hx Alcohol Use: No Drug/Substance Use Hx: No Substance Use Type: None Review of Systems - Review of Systems Constitutional: No: Chills, Fever Respiratory: No: Cough, Shortness of Breath Cardiac (ROS): Yes: Chest Pain. No: Palpitations ABD/GI: No: Nausea, Vomiting *Physical Exam - Vital Signs Last Vital Signs Temp Pulse Resp BP Pulse Ox 97.8 F 77 18 109/51 L 99 08/23/18 20:51 08/23/18 20:51 08/23/18 20:51 08/23/18 20:51 08/23/18 20:51 Medical Decision Making - Medical Decision Making 08/24/18 00:42 28 yo female presents to ED with CP. No concerning s/s or history for ACS, normal EKG Pt found to be . Given Tylenol for pain and advised to only use Tylenol for pain relief Discharged home with Ob GGYN follow up and strict return precautions *DC/Admit/Observation/Transfer Diagnosis at time of Disposition: Qualifiers: Weeks of gestation: unspecified Qualified Code(s): Z34.90 - Encounter for supervision of normal , unspecified, unspecified trimester Chest pain Qualifiers: Chest pain type: unspecified Qualified Code(s): R07.9 - Chest pain, unspecified - Discharge Dispostion Disposition: HOME Condition at time of disposition: Stable Decision to Admit order: No - Referrals Referrals: Stefan Morrissey MD [Staff Physician] - - Patient Instructions Printed Discharge Instructions: DI for Chest Pain Additional Instructions: Please follow up with the PIN WORKER Doctor prescribed and set appointment within the next 2 days regarding your . Only take Tylenol for pain relief as directed on the box over the counter for pain. Please return to the Emergency Room for new or worsening symptoms such as: vaginal bleeding, severe abdominal pain or severe chest pain. Thank you - Post Discharge Activity
[2018-08-23] MEDS ORDERED: ACETAMINOPHEN 500 MG TABLET (FP) PO ONE (22:10)
[2018-08-23 22:52] LABS: HCG,QUALITATIVE URINE Positive
[2018-08-23 22:54] LABS: URINE APPEARANCE CLOUDY; URINE BILIRUBIN NEGATIVE (<2.0 mg/dL); URINE COLOR YELLOW; URINE GLUCOSE (UA) NEGATIVE (NEGATIVE); URINE KETONE NEGATIVE (NEGATIVE); URINE LEUK ESTERASE NEGATIVE (NEGATIVE); URINE NITRITE NEGATIVE (NEGATIVE); URINE PROTEIN NEGATIVE (NEGATIVE); URINE UROBILINOGEN NEGATIVE mg/dL (0.2-1.0)
--- NOTE | 2018-08-24 10:51 | EKG ---
Test Reason : Blood Pressure : / mmHG Vent. Rate : 078 BPM Atrial Rate : 078 BPM P-R Int : 156 ms QRS Dur : 084 ms QT Int : 374 ms P-R-T Axes : 037 022 030 degrees QTc Int : 426 ms NORMAL SINUS RHYTHM NORMAL ECG WHEN COMPARED WITH ECG OF 29-JUN-2018 11:49, NO SIGNIFICANT CHANGE WAS FOUND Confirmed by LESTER ZEPEDA MD ([id number]) on 08/24/2018 10:50:31 AM Referred By: CARMEN Confirmed By:LESTER ZEPEDA MD
== END 2018-08-24 00:16 | disposition home or self-care (01) ==
LOC: JER 20:43
DX: O26.899 Other specified pregnancy related conditions, unspecified trimester (principal); R07.89 Other chest pain; Z3A.00 Weeks of gestation of pregnancy not specified
CPT/HCPCS: 81003; 84703; 93005; 93010; 99282-25

== ENCOUNTER 2018-09-12 07:24 | Emergency (ER) | payer OTHER ==
[2018-09-12 07:45] VITALS: TEMP 98.1; BMI 37.0
--- NOTE | 2018-09-12 08:13 | PDOC ---
History of Present Illness - General Chief Complaint: Eye Problem Stated Complaint: RIGHT EYE SWELLING, ITCHING Time Seen by Provider: 09/12/18 08:13 Past History - Past Medical History Allergies/Adverse Reactions: Allergies Allergy/AdvReac Type Severity Reaction Status Date / Time egg Allergy Verified 09/12/18 07:43 shellfish derived Allergy Verified 09/12/18 07:43 SEA FOOD Allergy Uncoded 09/12/18 07:43 Home Medications: Ambulatory Orders Amoxicillin/Potassium Clav [Augmentin 875-125 Tablet] 1 each PO BID #20 tablet 08/08/18 Anemia: Yes Asthma: Yes COPD: No DVT: No GI Disorders: Yes (GERD) Psychiatric Problems: Yes (BIPOLAR,SCHIZOPHRENIA,DEPRESSION,ANXIETY DISORDER) - Reproductive History (#): 0 Para: 0 Polycystic Ovaries: Yes Spontaneous : 0 - Immunization History Immunization Up to Date: Yes - Suicide/Smoking/Psychosocial Hx Smoking History: Never smoked Have you smoked in the past 12 months: No Hx Alcohol Use: No Drug/Substance Use Hx: No Substance Use Type: None *Physical Exam - Vital Signs Last Vital Signs Temp Pulse Resp BP Pulse Ox 98.1 F 74 16 97/66 99 09/12/18 07:43 09/12/18 07:43 09/12/18 07:43 09/12/18 07:43 09/12/18 07:43
[2018-09-12] MEDS ORDERED: FLUORESCEIN NA 1 EA STRIP OD ONE (08:36)
[2018-09-12] MEDS ORDERED: TETRACAINE 0.5% HCL 0.6ML DROPPER.BOTTLE OD ONE (08:37)
--- NOTE | 2018-09-12 08:37 | PDOC ---
Attending Attestation - Resident Resident Name: Eve Parr - ED Attending Attestation I have performed the following: I have examined & evaluated the patient, The case was reviewed & discussed with the resident, I agree w/resident's findings & plan, Exceptions are as noted - HPI HPI: 09/12/18 08:31 28y F hx of GERD, Gallstones, ovarian cyst, asthma, presents with complaint of eye pain. The pt states she was fine yesterday, woke up overnight with pain/ itching in her R eye. She also notes some swelling of her eye lids. Pt denie sany fb, does not use contacts. pt denies any other sypmtoms including n/v, vision changes, headache, neck pain. Pt noted some tearing/crusting when she woke up. on exam: mildly injected conjunctiva +periorbital swelling, with slight erythema EOMI, PEERL ddx - preseptal celluitis will do flouriscine stain - Medical Decision Making 09/12/18 09:37 +corneal abrasion approx 5pm on flouriscine staining will give abx gtt, and percoet for pain control optho fu
--- NOTE | 2018-09-12 08:40 | PDOC ---
History of Present Illness - General Chief Complaint: Eye Problem Stated Complaint: RIGHT EYE SWELLING, ITCHING Time Seen by Provider: 09/12/18 08:13 - History of Present Illness Initial Comments: Stephanie Gregg is a 28yo woman with a PMH of schizophrenia, anemia, GERD, asthma who presents with right eyelid swelling, red eye, and tearing since this morning. She reports that she had no eye problems when she went to bed, but her eyelid was swollen and painful when she woke up. She describes the feeling as itching and very painful; she is unable to qualify or quantify the pain. She cannot localize the pain to her eye itself vs the eyelid. She is unable to determine whether her vision is affected as she has difficulty opening her eye. Ms Gregg reports that there was some crusting around her eye when she first woke, but since then it has been tearing. She endorses photophobia as well as pain and itching. She denies any new soaps, detergents, lotions, makeup or any new foods. She denies any recent fevers/ chills, rhinorrhea, sinus congestion, ear pain, or sore throat. Past History - Past Medical History Allergies/Adverse Reactions: Allergies Allergy/AdvReac Type Severity Reaction Status Date / Time egg Allergy Verified 09/12/18 07:43 shellfish derived Allergy Verified 09/12/18 07:43 SEA FOOD Allergy Uncoded 09/12/18 07:43 Home Medications: Ambulatory Orders Albuterol Sulfate Inhaler - [Ventolin Hfa Inhaler -] 1 - 2 inh PO QID PRN Albuterol Sulfate [Proair Hfa] 8.5 gm IH PRN PRN 09/12/18 Erythromycin 0.5% Eye Ointment [Erythromycin 0.5% Eye Ointment -] 1 applic OD BID #1 tube 09/12/18 Iron 0 mg PO DAILY 09/12/18 Omeprazole 20 mg PO DAILY 09/12/18 Oxycodone HCl/Acetaminophen [Percocet 5-325 mg Tablet -] 1 combo PO Q6H PRN #10 tablet MDD 4 09/12/18 Anemia: Yes Asthma: Yes COPD: No DVT: No GI Disorders: Yes (GERD) Psychiatric Problems: Yes (BIPOLAR,SCHIZOPHRENIA,DEPRESSION,ANXIETY DISORDER) - Reproductive History (#): 0 Para: 0 Polycystic Ovaries: Yes Spontaneous : 0 - Immunization History Immunization Up to Date: Yes - Suicide/Smoking/Psychosocial Hx Smoking History: Never smoked Have you smoked in the past 12 months: No Information on smoking cessation initiated: No Hx Alcohol Use: No Drug/Substance Use Hx: No Substance Use Type: None Review of Systems - Review of Systems Comments:: General: No fevers, no chills, no weight or appetite changes, no malaise HEENT: No changes in vision, no changes in hearing, no congestion, no sore throat CV: No chest pain, no palpitations, no LE edema Pulm: No SOB, no cough, no wheezing GI: No nausea or vomiting, no change in bowel habits, no melena : No frequency, no urgency, no dysuria Musc: No back pain, no joint swelling, no recent injury Skin: No rash, no lesions, no erythema Endo: No excessive thirst, no heat/cold intolerance Heme: No unusual bruising or bleeding, no swollen glands Neuro: No syncope, no numbness/tingling, no focal weakness Vasc: No claudication Psych: No recent change in mood, no SI or HI *Physical Exam - Vital Signs Last Vital Signs Temp Pulse Resp BP Pulse Ox 98.1 F 74 16 97/66 99 09/12/18 07:43 09/12/18 07:43 09/12/18 07:43 09/12/18 07:43 09/12/18 07:43 - Physical Exam Comments: General: Comfortable, no acute distress HEENT: R eye with visibly swollen upper and lower lids. Mildly injected sclera. No visible foreign body. EOMI intact. TTP around eye. No purulence. Cards: RRR, no murmur appreciated Pulm: Comfortable on room air Abd: Soft, nontender, nondistended. Ext: Atraumatic. No LE edema. ROM intact. Strength 5/5 and equal bilaterally Vasc: WWP Skin: Normal color, no rashes or lesions Neuro: A&Ox3, CN grossly intact, normal speech, motor/sensory grossly intact and symmetric Psych: Mood appropriate to situation Medical Decision Making - Medical Decision Making 09/12/18 08:56 Stephanie Grgeg is a 28yo woman with a PMH of schizophrenia, asthma, GERD, anemia who presents with right eyelid swelling, eye erythema, pain, and itching since she woke this morning. - Concern for periorbital cellulitis v corneal abrasion - Tetracaine drops for eye. Will re-examine to determine whether pain is localized to eye or in eyelid/surrounding tissue - Fluorescein exam to evaluate for abrasion 09/12/18 09:08 - Still reports significant pain following tetracaine drops. Pain is around and "in" her eye - 800mg ibuprofen for continued pain 09/12/18 09:45 - Fluorescein exam completed. Abrasion over iris at aproximately 5 o'clock, 2mm in diameter - Discussed with patient. Will discharge home with ophthalmology follow up. Erythromycin drops/ointment and pain control per Dr Perez. - Discussed return precautions. She states understanding and agreement with this plan. Seen and discussed with Dr Perez. Eve Parr PGY1 *DC/Admit/Observation/Transfer Diagnosis at time of Disposition: Corneal abrasion, right Qualifiers: Encounter type: initial encounter Qualified Code(s): S05.01XA - Injury of conjunctiva and corneal abrasion without foreign body, right eye, initial encounter - Discharge Dispostion Disposition: HOME Condition at time of disposition: Stable Decision to Admit order: No - Prescriptions Prescriptions: Erythromycin 0.5% Eye Ointment [Erythromycin 0.5% Eye Ointment -] 1 applic OD BID #1 tube Oxycodone HCl/Acetaminophen [Percocet 5-325 mg Tablet -] 1 combo PO Q6H PRN #10 tablet MDD 4 PRN Reason: Pain - Referrals Referrals: Felipe Cooper [Staff Physician] - - Patient Instructions Printed Discharge Instructions: DI for Corneal Abrasion Additional Instructions: Discharge Instructions: - You were seen in the ED for right eye pain and swelling. You were found to have a scratch on your eye called a corneal abrasion - The corneal abrasion should heal over the next few days. - You have been prescribed a pain medication to take every 6 hours at home. - You have also been prescribed an antibiotic eye ointment. Apply this to your eye twice per day for 5-7 days or until you are seen by the eye doctor. - For additional pain control, you may use ibuprofen 600mg every 6 hours. You may also consider using heat or cold packs to sooth the area around your eye. - Seek immediate medical care if you have severe pain when moving your eye, you have loss of vision or double vision, or if you develop a severe headache or fever to 101F. - Post Discharge Activity
[2018-09-12] MEDS ORDERED: IBUPROFEN 400 MG TABLET (FP) PO ONE ×2 (09:08→09:22)
[2018-09-12 10:20] VITALS: BP 115/69; PULSE 84
== END 2018-09-12 10:43 | disposition home or self-care (01) ==
LOC: JER 07:24
DX: S05.01XA Injury of conjunctiva and corneal abrasion without foreign body, right eye, initial encounter (principal); F20.9 Schizophrenia, unspecified; K21.9 Gastro-esophageal reflux disease without esophagitis; J45.909 Unspecified asthma, uncomplicated
CPT/HCPCS: 99281-25

== ENCOUNTER 2018-10-19 02:13 | Emergency (ER) | payer OTHER ==
[2018-10-19 02:29] VITALS: TEMP 98.5; BMI 39.0
--- NOTE | 2018-10-19 02:45 | PDOC ---
History of Present Illness - General Chief Complaint: Chest Pain Stated Complaint: HEART PALPITATIONS Time Seen by Provider: 10/19/18 02:23 - History of Present Illness Initial Comments: 10/19/18 02:44 28 yo F with h/o schitzophrenia, anemia, asthma, GERD who p/w left sided chest pain. Patient reports acute onset of left sided unremitting, sharp, non pleuritic, non radiating chest pain beginning at 0200 AM. Also endorses acute onset of dry non productive cough at 0200 AM. No identifiable triggers or alleviators. Denies recent travels, trauma, surgery. Seen by cardiology in past with nml stress testing. Patient denies N/V, orthopnea, PND, palpitations, wheezing, hemoptysis, leg swelling/pain, F,C, CP, SOB, urinary complaints, abdominal pain, diarrhea, constipation, lightheadedness, weakness, sensory changes. PMHx: as noted above. Denies h/o ACS/VT, stent placement, CABG. Denies h/o endoscopy, chronic NSAID use. ROS: as noted SHx: Denies tobacco use, IVDA, Etoh FHx: No h/o sudden early cardiac Past History - Past Medical History Allergies/Adverse Reactions: Allergies Allergy/AdvReac Type Severity Reaction Status Date / Time egg Allergy Verified 10/19/18 03:10 shellfish derived Allergy Verified 10/19/18 03:10 SEA FOOD Allergy Uncoded 10/19/18 03:10 Home Medications: Ambulatory Orders Albuterol Sulfate Inhaler - [Ventolin Hfa Inhaler -] 1 - 2 inh PO QID PRN Albuterol Sulfate [Proair Hfa] 8.5 gm IH PRN PRN 09/12/18 Iron 0 mg PO DAILY 09/12/18 Omeprazole 20 mg PO DAILY 09/12/18 Anemia: Yes Asthma: Yes COPD: No DVT: No GI Disorders: Yes (GERD) Psychiatric Problems: Yes (BIPOLAR,SCHIZOPHRENIA,DEPRESSION,ANXIETY DISORDER) - Reproductive History (#): 0 Para: 0 Polycystic Ovaries: Yes Spontaneous : 0 - Immunization History Immunization Up to Date: Yes - Suicide/Smoking/Psychosocial Hx Smoking History: Never smoked Have you smoked in the past 12 months: No Hx Alcohol Use: No Drug/Substance Use Hx: No Substance Use Type: None Review of Systems - Review of Systems Comments:: 10/19/18 02:44 GENERAL/CONSTITUTIONAL: No fever or chills. No weakness. HEAD, EYES, EARS, NOSE AND THROAT: No change in vision. No ear pain or discharge. No sore throat. CARDIOVASCULAR: + chest pain. No shortness of breath RESPIRATORY:+cough. No wheezing, or hemoptysis. GASTROINTESTINAL: No nausea, vomiting, diarrhea or constipation. GENITOURINARY: No dysuria, frequency, or change in urination. MUSCULOSKELETAL: No joint or muscle swelling or pain. No neck or back pain. SKIN: No rash NEUROLOGIC: No headache, vertigo, loss of consciousness, or change in strength/ sensation. ENDOCRINE: No increased thirst. No abnormal weight change HEMATOLOGIC/LYMPHATIC: No anemia, easy bleeding, or history of blood clots. ALLERGIC/IMMUNOLOGIC: No hives or skin allergy. *Physical Exam - Vital Signs Last Vital Signs Temp Pulse Resp BP Pulse Ox 98.5 F 89 19 109/77 100 10/19/18 02:15 10/19/18 02:15 10/19/18 02:15 10/19/18 02:15 10/19/18 02:15 - Physical Exam Comments: 10/19/18 02:44 GENERAL: Awake, alert, and fully oriented, in no acute distress HEAD: No signs of trauma, normocephalic, atraumatic EYES: PERRLA, EOMI, sclera anicteric, conjunctiva clear ENT: Hearing grossly normal, nares patent, oropharynx clear without exudates. Moist mucosa NECK: Normal ROM, supple, no lymphadenopathy, JVD, or masses LUNGS: No distress, speaks full sentences, clear to auscultation bilaterally CHEST: Slightly reporducible left sided chest wall ttp, with absent crepitus, bony deformity. HEART: Regular rate and rhythm, normal S1 and S2, no murmurs, rubs or gallops, peripheral pulses normal and equal bilaterally. ABDOMEN: Soft, nontender, normoactive bowel sounds. No guarding, no rebound. No masses EXTREMITIES : Normal inspection, Normal range of motion, no edema. No clubbing or cyanosis. SKIN: Warm, Dry, normal turgor, no rashes or lesions noted Moderate Sedation - Procedure Monitoring Vital Signs: Procedure Monitoring Vital Signs Temperature 98.5 F 10/19/18 02:15 Pulse Rate 89 10/19/18 02:15 Respiratory Rate 19 10/19/18 02:15 Blood Pressure 109/77 10/19/18 02:15 O2 Sat by Pulse Oximetry (%) 100 10/19/18 02:15 ED Treatment Course - LABORATORY CBC & Chemistry Diagram: 10/19/18 03:48 10/19/18 03:48 Medical Decision Making - Medical Decision Making 10/19/18 03:37 28 yo F with h/o schitzophrenia, anemia, asthma, GERD who p/w left sided chest pain. VSS, AF, A&Ox3, physical exam unremarkable. ACS/VT r/o. R/o PNA. PERC NEG PE. Will consider GI related vs MSK vs. Anemia. vs. cardiac related causes of chest pain including gastritis, esophagitis. Low suspicion pericarditis, pleural or pericardial effusions, AAA, Ao dissection, asthma exacerbation, pancreatitis. ED Course: CBC,CMP, Cardiac Pr. Lipase EKG, CXR Maloox, Carafate, Ranitidine 10/19/18 03:46 EKG: NSR with absent ZAIN, STD. T wave inversions lead III. Nml interval duration and axis. 10/19/18 04:57 CBC: Unremarkable Lipase: 397 10/19/18 05:10 HCG: Neg *DC/Admit/Observation/Transfer Diagnosis at time of Disposition: Atypical chest pain - Discharge Dispostion Condition at time of disposition: Stable - Referrals Referrals: Rose Joshi NP [Primary Care Provider] - Darshan Kat MD [Staff Physician] - - Patient Instructions Printed Discharge Instructions: DI for Atypical Chest Pain Additional Instructions: Please return to the emergency department with any new or worsening symptoms or concerns. Please follow up with your primary care physician within 72 hours. Please follow up with cardiology within 72 hours. - Post Discharge Activity - Attestations Physician Attestion: 10/19/18 02:45 I attest to the information provided in this note.
[2018-10-19] MEDS ORDERED: SUCRALFATE 1 GM TABLET (FP) PO ONE (03:32)
[2018-10-19] MEDS ORDERED: MAG HYDROX/AL HYDROX/SIMETH 30 ML UNIT-DOSE CUP PO ONE (03:32)
[2018-10-19] MEDS ORDERED: RANITIDINE HCL 150 MG TABLET (FP) PO ONE (03:32)
--- NOTE | 2018-10-19 03:44 | PDOC ---
Attending Attestation - Resident Resident Name: BernardoTonyBennie - ED Attending Attestation I have performed the following: I have examined & evaluated the patient, The case was reviewed & discussed with the resident, I agree w/resident's findings & plan - HPI HPI: 10/19/18 04:49 Pt comes with CP; - Physicial Exam PE: 10/19/18 04:50 Agree with resident exam 10/19/18 05:53 Pt has no epigastric pain and no RUQ pain on palpation; but she has a hx of GB stones in the past. - Medical Decision Making 10/19/18 04:50 Pt has normal CBC; her HB is 9.4, slightly lower than the 10.4 that she usually has. Chem is pending. Pt will be signed out ot the day ER team to get serial troponins. and recehck the lipase. Heart Score/ECG Review - ECG Intrepretation Rhythm: Regular Rhythm - Yale Yale: Normal - P and MN Prominent R with upright T in V1 (true posterior CO): No Delta Wave(s) Present: No WPW: No - QRS Poor R Wave Progression: No Q Wave Present: No - ST and T Early Repolarization: No Non Specific ST-T Wave changes: No Flattened T Waves: No Prolonged Q-T Interval: No - ECG Impressions Normal ECG: Yes Non-specific ST Elevation: No Ischemic Changes: No Bradycardia: No Torsades deven Pointes: No WPW: No
[2018-10-19] MEDS ORDERED: SUCRALFATE 1 GM TABLET (FP) ONE (04:01)
[2018-10-19] MEDS ORDERED: RANITIDINE HCL 150 MG TABLET (FP) ONE (04:01)
[2018-10-19] MEDS ORDERED: MAG HYDROX/AL HYDROX/SIMETH 30 ML UNIT-DOSE CUP ONE (04:02)
[2018-10-19 04:34] LABS: BASO % 0.7 % (0-2.0); EOS % 2.9 % (0-4.5); HEMATOCRIT 29.2 % (32.4-45.2); HEMOGLOBIN 9.4 GM/dL (10.7-15.3); LYMPH % 31.8 % (8-40); MCH 21.6 pg (25.7-33.7); MCHC 32.2 g/dl (32.0-36.0); MEAN CELL VOLUME 66.9 fl (80-96); MEAN PLT VOLUME 9.3 fl (7.5-11.1); MONO % 11.7 % (3.8-10.2); NEUT % 52.9 % (42.8-82.8); PLATELET COUNT 300 K/MM3 (134-434); RBC 4.37 M/mm3 (3.60-5.2); RDW 15.1 % (11.6-15.6); WHITE BLOOD COUNT 5.8 K/mm3 (4.0-10.0)
[2018-10-19 04:58] LABS: ALBUMIN 3.2 g/dl (3.4-5.0); ALK PHOS 73 U/L (45-117); ANION GAP 6 MMOL/L (8-16); BILIRUBIN,TOTAL 0.2 mg/dL (0.2-1); BLOOD UREA NITROGEN 14 mg/dL (7-18); CALCIUM 8.4 mg/dL (8.5-10.1); CHLORIDE 106 mmol/L (98-107); CO2 27 mmol/L (21-32); CREATININE 0.9 mg/dL (0.55-1.3); GLUCOSE,RANDOM 80 mg/dL (74-106); SGOT/AST 14 U/L (15-37); SGPT/ALT 13 U/L (13-61); SODIUM 138 mmol/L (136-145); TOT PROT 6.6 g/dl (6.4-8.2)
[2018-10-19 06:59] LABS: URINE APPEARANCE CLEAR; URINE BILIRUBIN NEGATIVE (<2.0 mg/dL); URINE COLOR STRAW; URINE GLUCOSE (UA) NEGATIVE (NEGATIVE); URINE KETONE NEGATIVE (NEGATIVE); URINE LEUK ESTERASE NEGATIVE (NEGATIVE); URINE NITRITE NEGATIVE (NEGATIVE); URINE PROTEIN NEGATIVE (NEGATIVE); URINE UROBILINOGEN NEGATIVE mg/dL (0.2-1.0)
--- NOTE | 2018-10-19 07:12 | PDOC ---
*Physical Exam - Vital Signs Last Vital Signs Temp Pulse Resp BP Pulse Ox 98.5 F 72 19 109/77 100 10/19/18 02:15 10/19/18 02:59 10/19/18 02:15 10/19/18 02:15 10/19/18 02:59 ED Treatment Course - LABORATORY CBC & Chemistry Diagram: 10/19/18 03:48 10/19/18 03:48 - ADDITIONAL ORDERS Additional order review: Laboratory Results 10/19/18 10/19/18 10/19/18 04:50 03:48 03:48 Sodium 138 Potassium 4.0 Chloride 106 Carbon Dioxide 27 Anion Gap 6 L BUN 14 Creatinine 0.9 Creat Clearance w eGFR > 60 Random Glucose 80 Calcium 8.4 L Total Bilirubin 0.2 AST 14 L ALT 13 Alkaline Phosphatase 73 Creatine Kinase Creatine Kinase Index CK-MB (CK-2) Troponin I Total Protein 6.6 Albumin 3.2 L Lipase 397 H Serum , Qual Urine Color Straw Urine Appearance Clear Urine pH 7.0 Ur Specific [place] 1.013 Urine Protein Negative Urine Glucose (UA) Negative Urine Ketones Negative Urine Blood Negative Urine Nitrite Negative Urine Bilirubin Negative Urine Urobilinogen Negative Ur Leukocyte Esterase Negative 10/19/18 10/19/18 03:48 03:48 Sodium Potassium Chloride Carbon Dioxide Anion Gap BUN Creatinine Creat Clearance w eGFR Random Glucose Calcium Total Bilirubin AST ALT Alkaline Phosphatase Creatine Kinase 197 H Creatine Kinase Index 0.6 CK-MB (CK-2) 1.3 Troponin I < 0.02 Total Protein Albumin Lipase Serum , Qual Negative Urine Color Urine Appearance Urine pH Ur Specific [place] Urine Protein Urine Glucose (UA) Urine Ketones Urine Blood Urine Nitrite Urine Bilirubin Urine Urobilinogen Ur Leukocyte Esterase 10/19/18 03:48 RBC 4.37 MCV 66.9 L MCHC 32.2 RDW 15.1 MPV 9.3 Neutrophils % 52.9 Lymphocytes % 31.8 D Monocytes % 11.7 H Eosinophils % 2.9 D Basophils % 0.7 - Medications Given in the ED: ED Medications Discontinued Medications Generic Name Dose Route Start Last Admin Trade Name Freq PRN Reason Stop Dose Admin Al Hydroxide/Mg Hydroxide 30 ml 10/19/18 03:32 10/19/18 04:12 Mylanta Oral Suspension - PO 10/19/18 03:33 30 ml ONCE ONE Administration Ranitidine HCl 150 mg 10/19/18 03:32 10/19/18 04:12 Zantac - PO 10/19/18 03:33 150 mg ONCE ONE Administration Sucralfate 1 gm 10/19/18 03:32 10/19/18 04:12 Carafate - PO 10/19/18 03:33 1 gm ONCE ONE Administration Medical Decision Making - Medical Decision Making 10/19/18 07:[address] Chang. 10/19/18 08:52 Patient is a 28 yo female w/ pmh of schizophrenia, anemia, asthma, GERD who presents for evaluation of left sided chest pain. Patient currently resting comfortably. Labs grossly wnl as below. US negative for acute process. EKG non- concerning. Discharging to home w/ instructions to f/u outpatient w/ support clerk for further evaluation. *DC/Admit/Observation/Transfer Diagnosis at time of Disposition: Atypical chest pain - Discharge Dispostion Condition at time of disposition: Stable - Referrals Referrals: Rose Joshi NP [Primary Care Provider] - Darshan Kat MD [Staff Physician] - - Patient Instructions Printed Discharge Instructions: DI for Atypical Chest Pain Additional Instructions: Please return to the emergency department with any new or worsening symptoms or concerns. Please follow up with your primary care physician within 72 hours. Please follow up with cardiology within 72 hours. - Post Discharge Activity
[2018-10-19 09:08] VITALS: BP 105/66; PULSE 66
--- NOTE | 2018-10-19 09:25 | EKG ---
Test Reason : Blood Pressure : / mmHG Vent. Rate : 064 BPM Atrial Rate : 064 BPM P-R Int : 132 ms QRS Dur : 084 ms QT Int : 428 ms P-R-T Axes : 037 014 015 degrees QTc Int : 441 ms NORMAL SINUS RHYTHM WITH SINUS ARRHYTHMIA NORMAL ECG WHEN COMPARED WITH ECG OF 23-AUG-2018 20:51, NO SIGNIFICANT CHANGE WAS FOUND Confirmed by ANDREINA POLANCO MD ([id number]) on 10/19/2018 9:25:14 AM Referred By: Confirmed By:ANDREINA POLANCO MD
== END 2018-10-19 09:24 | disposition home or self-care (01) ==
LOC: JER 02:13
DX: R07.89 Other chest pain (principal)
CPT/HCPCS: 36415; 71045-TC-FY; 76705-TC; 80053; 81003; 82550; 82553; 83690; 84484; 84703; 85025; 93005; 93010; 99283-25

== ENCOUNTER 2018-10-24 10:09 | Emergency (ER) | payer OTHER ==
[2018-10-24 10:32] VITALS: BP 115/82; PULSE 71; TEMP 98.1; BMI 37.0
[2018-10-24] MEDS ORDERED: IBUPROFEN 400 MG TABLET (FP) PO ONE ×2 (11:16→11:30)
[2018-10-24 11:19] LABS: HCG,QUALITATIVE URINE Negative
--- NOTE | 2018-10-24 11:25 | PDOC ---
History of Present Illness - General Chief Complaint: Vaginal Sxs Stated Complaint: ABD PAIN Time Seen by Provider: 10/24/18 11:02 History Source: Patient Exam Limitations: No Limitations - History of Present Illness Travel History: No Initial Comments: 10/24/18 11:21 28 yr female with lower abd pain , painful urination and vaginal discharge started today . Pt denies nausea vomiting or diarrhea. Pt is sexually active with her no history of STD in the past. Timing/Duration: reports: constant Quality: reports: mild, aching Past History - Past Medical History Allergies/Adverse Reactions: Allergies Allergy/AdvReac Type Severity Reaction Status Date / Time egg Allergy Verified 10/24/18 10:28 shellfish derived Allergy Verified 10/24/18 10:28 SEA FOOD Allergy Uncoded 10/24/18 10:28 Home Medications: Ambulatory Orders Albuterol Sulfate Inhaler - [Ventolin Hfa Inhaler -] 1 - 2 inh PO QID PRN Albuterol Sulfate [Proair Hfa] 8.5 gm IH PRN PRN 09/12/18 Iron 0 mg PO DAILY 09/12/18 Omeprazole 20 mg PO DAILY 09/12/18 Anemia: Yes Asthma: Yes COPD: No DVT: No GI Disorders: Yes (GERD) Psychiatric Problems: Yes (BIPOLAR,SCHIZOPHRENIA,DEPRESSION,ANXIETY DISORDER) - Reproductive History (#): 0 Para: 0 Polycystic Ovaries: Yes Spontaneous : 0 - Immunization History Immunization Up to Date: Yes - Suicide/Smoking/Psychosocial Hx Smoking History: Never smoked Have you smoked in the past 12 months: No Hx Alcohol Use: No Drug/Substance Use Hx: No Substance Use Type: None Review of Systems - Review of Systems Able to Perform ROS?: Yes Is the patient limited [place] proficient: No Constitutional: No: Symptoms Reported HEENTM: No: Symptoms Reported Respiratory: No: Symptoms reported Cardiac (ROS): No: Symptoms Reported ABD/GI: No: Symptoms Reported : Yes: Symptoms Reported *Physical Exam - Vital Signs Last Vital Signs Temp Pulse Resp BP Pulse Ox 98.1 F 71 18 115/82 100 10/24/18 10:29 10/24/18 10:29 10/24/18 10:29 10/24/18 10:29 10/24/18 10:29 - Physical Exam General Appearance: Yes: Nourished, Appropriately Dressed HEENT: positive: EOMI, TRIP Neck: positive: Supple Female Pelvic Exam: positive: normal external exam, normal adnexa. negative: CMT, lesions, adnexal tenderness, vaginal bleeding Gastrointestinal/Abdominal: positive: Normal Bowel Sounds, Soft, Tenderness ( mild suprapubic tenderness on deep palpation). negative: Tender, Guarding, Rebound Lymphatic: negative: Adenopathy Musculoskeletal: positive: Normal Inspection Extremity: positive: Normal Capillary Refill, Normal Inspection, Normal Range of Motion Integumentary: positive: Normal Color, Dry, Warm Neurologic: positive: Fully Oriented, Alert, Normal Mood/Affect, Normal Response , Motor Strength 5/5 Moderate Sedation - Procedure Monitoring Vital Signs: Procedure Monitoring Vital Signs Temperature 98.1 F 10/24/18 10:29 Pulse Rate 71 10/24/18 10:29 Respiratory Rate 18 10/24/18 10:29 Blood Pressure 115/82 10/24/18 10:29 O2 Sat by Pulse Oximetry (%) 100 10/24/18 10:29 ED Treatment Course - ADDITIONAL ORDERS Additional order review: Laboratory Results 10/24/18 10:45 Urine HCG, Qual Negative Medical Decision Making - Medical Decision Making 10/24/18 11:23 cc: lower pelvic discomfort with dysuria, vaginal discharge neg fever neg nvd abd is soft non tender no guarding neg RLQ tenderness exam with no lesions no evidence of STD, will send cultures r/o r/o UTI pt declined HIV , RPR testing pt will wait for the culture results to be treated as necessary. Pt does not have any copious discharge on exam. 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
[2018-10-24 12:38] LABS: PH,URINE 5.5 (5.0-8.0); URINE APPEARANCE Clear; URINE BILIRUBIN Negative (<2.0 mg/dL); URINE COLOR Yellow; URINE GLUCOSE (UA) Negative (NEGATIVE); URINE KETONE Negative (NEGATIVE); URINE LEUK ESTERASE 1+ (NEGATIVE); URINE NITRITE Negative (NEGATIVE); URINE PROTEIN Negative (NEGATIVE); URINE UROBILINOGEN 0.2 mg/dL (0.2-1.0)
[2018-10-24 12:40] LABS: EPI CELLS FEW /HPF (FEW); URINE MUCUS RARE
== END 2018-10-24 12:48 | disposition home or self-care (01) ==
LOC: JERFT 10:09
DX: N89.8 Other specified noninflammatory disorders of vagina (principal)
CPT/HCPCS: 36415; 81003; 81015; 84703; 87070; 87086; 87186; 87205; 87491; 87591; 99281-25

== ENCOUNTER 2018-10-29 02:55 | Emergency (ER) | payer OTHER ==
[2018-10-29 03:21] VITALS: BMI 39.0
--- NOTE | 2018-10-29 04:22 | PDOC ---
History of Present Illness - History of Present Illness Initial Comments: 10/29/18 04:32 The patient is 28 year old female with a significant past medical history of schizophrenia, bipolar d/o, anemia, asthma, GERD who presents with midsternal chest pain which radiates inferiorly to her right upper quadrant that woke her from sleep around 2:30 AM. She states her symptoms are similar to her symptoms on 10/24 and 10/19 when she presented to the ED. She reports her chest pain is exacerbated with palpation. Denies trauma or heavy lifting. States sxs better since getting to the ED. The patient denies shortness of breath, headache, weakness/numbness and dizziness. The patient denies fever, chills, nausea, vomit, diarrhea and constipation. The patient denies dysuria, frequency, urgency and hematuria. Allergies: NKDA Past surgical history: none reported Social history: denies toxic habits FHx: No h/o sudden early cardiac <Evelin Oswald - Last Filed: 10/29/18 06:58> <Troy Neely - Last Filed: 10/29/18 09:20> - General Chief Complaint: Chest Pain Stated Complaint: CHEST DISCOMFORT Time Seen by Provider: 10/29/18 03:54 Past History - Past Medical History Anemia: Yes Asthma: Yes COPD: No DVT: No GI Disorders: Yes (GERD) Psychiatric Problems: Yes (BIPOLAR,SCHIZOPHRENIA,DEPRESSION,ANXIETY DISORDER) - Reproductive History (#): 0 Para: 0 Polycystic Ovaries: Yes Spontaneous : 0 - Immunization History Immunization Up to Date: Yes - Suicide/Smoking/Psychosocial Hx Smoking History: Never smoked Have you smoked in the past 12 months: No Information on smoking cessation initiated: No Hx Alcohol Use: No Drug/Substance Use Hx: No Substance Use Type: None <Evelin Oswald - Last Filed: 10/29/18 06:58> <Troy Neely - Last Filed: 10/29/18 09:20> - Past Medical History Allergies/Adverse Reactions: Allergies Allergy/AdvReac Type Severity Reaction Status Date / Time egg Allergy Verified 10/29/18 03:21 shellfish derived Allergy Verified 10/29/18 03:21 SEA FOOD Allergy Uncoded 10/29/18 03:21 Home Medications: Ambulatory Orders Albuterol Sulfate Inhaler - [Ventolin Hfa Inhaler -] 1 - 2 inh PO QID PRN Iron 0 mg PO DAILY 09/12/18 Omeprazole 20 mg PO DAILY 09/12/18 Review of Systems - Review of Systems Comments:: 10/29/18 04:37 "GENERAL/CONSTITUTIONAL: No fever or chills. No weakness. HEAD, EYES, EARS, NOSE AND THROAT: No change in vision. No ear pain or discharge. No sore throat. GASTROINTESTINAL: No nausea, vomiting, diarrhea or constipation. GENITOURINARY: No dysuria, frequency, or change in urination. CARDIOVASCULAR: (+) chest pain. No shortness of breath. RESPIRATORY: No cough, wheezing, or hemoptysis. MUSCULOSKELETAL: No joint or muscle swelling or pain. No neck or back pain. SKIN: No rash NEUROLOGIC: No headache, vertigo, loss of consciousness, or change in strength/ sensation. ENDOCRINE: No increased thirst. No abnormal weight change. HEMATOLOGIC/LYMPHATIC: No anemia, easy bleeding, or history of blood clots. ALLERGIC/IMMUNOLOGIC: No hives or skin allergy." <Nassef,Yomna - Last Filed: 10/29/18 06:58> *Physical Exam - Vital Signs Last Vital Signs Temp Pulse Resp BP Pulse Ox 97.7 F 74 19 101/75 100 10/29/18 02:55 10/29/18 04:03 10/29/18 02:55 10/29/18 02:55 10/29/18 04:03 - Physical Exam Comments: 10/29/18 04:37 GENERAL: Awake, alert, and fully oriented, in no acute distress EYES: PERRLA, EOMI, sclera anicteric, conjunctiva clear ENT: Oropharynx clear without exudates. Moist mucosa NECK: Normal ROM, supple, no lymphadenopathy, JVD, or masses LUNGS: Breath sounds equal, clear to auscultation bilaterally. No wheezes, and no crackles CHEST: (+) reproducible midsternal chest pain on palpation. RRR, no MRG HEART: Regular rate and rhythm, normal S1 and S2, no murmurs, rubs or gallops ABDOMEN: Soft, nontender, normoactive bowel sounds. No guarding, no rebound. No masses. EXTREMITIES: Normal range of motion, no edema. No cords, erythema, or tenderness. WWP. BACK: No midline spinal tenderness in cervical/thoracic/lumbar region NEUROLOGICAL: Normal speech, cranial nerves intact, equal strength and sensation b/l SKIN: Warm, Dry, normal turgor, no rashes or lesions noted. <Evelin Oswald - Last Filed: 10/29/18 06:58> - Vital Signs Last Vital Signs Temp Pulse Resp BP Pulse Ox 97.7 F 74 19 101/75 100 10/29/18 02:55 10/29/18 04:03 10/29/18 02:55 10/29/18 02:55 10/29/18 04:03 <Troy Neely - Last Filed: 10/29/18 09:20> Moderate Sedation - Procedure Monitoring Vital Signs: Procedure Monitoring Vital Signs Temperature 97.7 F 10/29/18 02:55 Pulse Rate 74 10/29/18 04:03 Respiratory Rate 19 10/29/18 02:55 Blood Pressure 101/75 10/29/18 02:55 O2 Sat by Pulse Oximetry (%) 100 10/29/18 04:03 <Evelin Oswald - Last Filed: 10/29/18 06:58> - Procedure Monitoring Vital Signs: Procedure Monitoring Vital Signs Temperature 97.7 F 10/29/18 02:55 Pulse Rate 74 10/29/18 04:03 Respiratory Rate 19 10/29/18 02:55 Blood Pressure 101/75 10/29/18 02:55 O2 Sat by Pulse Oximetry (%) 100 10/29/18 04:03 <Troy Neely - Last Filed: 10/29/18 09:20> Heart Score/ECG Review - History History: Slightly suspicious - Electrocardiogram EKG: Normal - Age Age: </= 45 - Risk Factors Based on the list above the patient has:: 1-2 risk factors - Troponin Troponin: </= normal limit - Score Heart Score - Total: 1 #1 10/29/18 04:22 Twelve-lead EKG was performed and reviewed by me. Normal sinus rhythm, rate 60. Normal axis and intervals. No ST elevations or T-wave inversions. <Evelin Oswald - Last Filed: 10/29/18 06:58> ED Treatment Course - LABORATORY CBC & Chemistry Diagram: 10/29/18 04:42 10/29/18 04:42 <Evelin Oswald - Last Filed: 10/29/18 06:58> - LABORATORY CBC & Chemistry Diagram: 10/29/18 04:42 10/29/18 04:42 - ADDITIONAL ORDERS Additional order review: Laboratory Results 10/29/18 10/29/18 10/29/18 07:40 04:42 04:42 Sodium Potassium Chloride Carbon Dioxide Anion Gap BUN Creatinine Creat Clearance w eGFR Random Glucose Calcium Total Bilirubin AST ALT Alkaline Phosphatase Troponin I < 0.02 < 0.02 Total Protein Albumin Lipase 324 Urine Color Urine Appearance Urine pH Ur Specific [place] Urine Protein Urine Glucose (UA) Urine Ketones Urine Blood Urine Nitrite Urine Bilirubin Urine Urobilinogen Ur Leukocyte Esterase Urine HCG, Qual 10/29/18 10/29/18 04:42 04:18 Sodium 137 Potassium 4.2 Chloride 108 H Carbon Dioxide 24 Anion Gap 5 L BUN 14 Creatinine 0.8 Creat Clearance w eGFR > 60 Random Glucose 99 Calcium 8.1 L Total Bilirubin 0.2 AST 12 L ALT 15 Alkaline Phosphatase 71 Troponin I Total Protein 6.9 Albumin 3.3 L Lipase Urine Color Ltyellow Urine Appearance Clear Urine pH 8.0 D Ur Specific [place] 1.020 Urine Protein Negative Urine Glucose (UA) Negative Urine Ketones Negative Urine Blood Negative Urine Nitrite Negative Urine Bilirubin Negative Urine Urobilinogen Negative Ur Leukocyte Esterase Negative Urine HCG, Qual Negative 10/29/18 04:42 RBC 4.63 MCV 67.1 L MCHC 30.4 L RDW 15.7 H MPV 9.2 Neutrophils % 62.1 Lymphocytes % 25.6 Monocytes % 9.1 Eosinophils % 2.0 Basophils % 1.2 - Medications Given in the ED: ED Medications Discontinued Medications Generic Name Dose Route Start Last Admin Trade Name Freq PRN Reason Stop Dose Admin Acetaminophen 1,000 mg 10/29/18 04:36 10/29/18 04:56 Ofirmev Injection - IVPB 10/29/18 04:37 1,000 mg ONCE ONE Administration Al Hydroxide/Mg Hydroxide 30 ml 10/29/18 04:37 10/29/18 04:56 Mylanta Oral Suspension - PO 10/29/18 04:38 30 ml ONCE ONE Administration Famotidine/Sodium Chloride 20 mg in 50 mls @ 100 mls/hr 10/29/18 04:36 05:10 Pepcid 20 Mg Premixed Ivpb - IVPB 10/29/18 05:05 100 mls/hr ONCE ONE Administration Ibuprofen 400 mg 10/29/18 08:01 10/29/18 08:41 Motrin - PO 10/29/18 08:02 Not Given ONCE ONE Ketorolac Tromethamine 30 mg 10/29/18 05:34 10/29/18 06:23 Toradol Injection - IVPUSH 10/29/18 05:35 30 mg ONCE ONE Administration Ketorolac Tromethamine 30 mg 10/29/18 08:18 10/29/18 08:42 Toradol Injection - IVPUSH 10/29/18 08:19 Not Given ONCE ONE Ketorolac Tromethamine 15 mg 10/29/18 08:20 10/29/18 08:35 Toradol Injection - IVPUSH 10/29/18 08:21 15 mg ONCE ONE Administration <Troy Neely - Last Filed: 10/29/18 09:20> Medical Decision Making - Medical Decision Making 10/29/18 04:48 28yo F presents to the ED with chest pain, radiating to R lower chest. Pt reports improvement in pain in ED but still present. Vitals wnl. Exam with reproducible CP. HEart score is 1, low likelihood of ACS but will check 2 trops. Meets no PERC criteria, thus low likelihood PE. Likely MSK pain. Plan -labs -UPT -CXR -trop2 -pain control -reassess 10/29/18 06:58 Trop neg, labs unremarkable Pain well controlled with IV tylenol and toradol Trop 2 and CXR pending Signed out to oncoming attending for f/u on remaining diagnostics, re-eval, dispo <Evelin Oswald - Last Filed: 10/29/18 06:58> *DC/Admit/Observation/Transfer <Evelin Oswald - Last Filed: 10/29/18 06:58> <Troy Neely - Last Filed: 10/29/18 09:20> Diagnosis at time of Disposition: Atypical chest pain - Discharge Dispostion Disposition: HOME Condition at time of disposition: Stable - Referrals Referrals: Rose Joshi NP [Primary Care Provider] - - Patient Instructions Printed Discharge Instructions: DI for Atypical Chest Pain - Post Discharge Activity Forms/Work/School Notes: Back to Work
[2018-10-29 04:27] LABS: URINE APPEARANCE CLEAR; URINE BILIRUBIN NEGATIVE (<2.0 mg/dL); URINE COLOR LTYELLOW; URINE GLUCOSE (UA) NEGATIVE (NEGATIVE); URINE KETONE NEGATIVE (NEGATIVE); URINE LEUK ESTERASE NEGATIVE (NEGATIVE); URINE NITRITE NEGATIVE (NEGATIVE); URINE PROTEIN NEGATIVE (NEGATIVE); URINE UROBILINOGEN NEGATIVE mg/dL (0.2-1.0)
[2018-10-29 04:29] LABS: HCG,QUALITATIVE URINE Negative
[2018-10-29] MEDS ORDERED: ACETAMINOPHEN 1000 MG/100 ML VIAL (NON FORMULARY) IVPB ONE (04:36)
[2018-10-29] MEDS ORDERED: FAMOTIDINE 20 MG/50 ML IVPB 20 MG/50 ML MG IVPB ONE ×2 (04:36→04:51)
[2018-10-29] MEDS ORDERED: MAG HYDROX/AL HYDROX/SIMETH 30 ML UNIT-DOSE CUP PO ONE (04:37)
[2018-10-29] MEDS ORDERED: ACETAMINOPHEN INJECTION 100 ML IVPB ONE (04:51)
[2018-10-29] MEDS ORDERED: MAG HYDROX/AL HYDROX/SIMETH 30 ML UNIT-DOSE CUP ONE (04:51)
[2018-10-29 04:55] LABS: BASO % 1.2 % (0-2.0); HEMATOCRIT 31.1 % (32.4-45.2); HEMOGLOBIN 9.4 GM/dL (10.7-15.3); LYMPH % 25.6 % (8-40); MCH 20.4 pg (25.7-33.7); MCHC 30.4 g/dl (32.0-36.0); MEAN CELL VOLUME 67.1 fl (80-96); MEAN PLT VOLUME 9.2 fl (7.5-11.1); MONO % 9.1 % (3.8-10.2); NEUT % 62.1 % (42.8-82.8); PLATELET COUNT 293 K/MM3 (134-434); RBC 4.63 M/mm3 (3.60-5.2); RDW 15.7 % (11.6-15.6); WHITE BLOOD COUNT 6.4 K/mm3 (4.0-10.0)
[2018-10-29] MEDS ORDERED: KETOROLAC TROMETHAMINE 30 MG/1 ML VIAL ONE (05:30)
[2018-10-29] MEDS ORDERED: KETOROLAC TROMETHAMINE 30 MG/1 ML VIAL IVPUSH ONE ×2 (05:34→08:18)
[2018-10-29 05:54] LABS: ALBUMIN 3.3 g/dl (3.4-5.0); ALK PHOS 71 U/L (45-117); ANION GAP 5 MMOL/L (8-16); BILIRUBIN,TOTAL 0.2 mg/dL (0.2-1); BLOOD UREA NITROGEN 14 mg/dL (7-18); CALCIUM 8.1 mg/dL (8.5-10.1); CHLORIDE 108 mmol/L (98-107); CO2 24 mmol/L (21-32); CREATININE 0.8 mg/dL (0.55-1.3); GLUCOSE,RANDOM 99 mg/dL (74-106); POTASSIUM 4.2 mmol/L (3.5-5.1); SGOT/AST 12 U/L (15-37); SGPT/ALT 15 U/L (13-61); SODIUM 137 mmol/L (136-145); TOT PROT 6.9 g/dl (6.4-8.2)
[2018-10-29 06:55] LABS: ANISOCYTOSIS 1+; PLATELET ESTIMATE ADEQUATE; TEAR DROP CELLS FEW
[2018-10-29] MEDS ORDERED: IBUPROFEN 400 MG TABLET (FP) PO ONE ×2 (08:01→08:02)
--- NOTE | 2018-10-29 08:02 | PDOC ---
*Physical Exam - Vital Signs Last Vital Signs Temp Pulse Resp BP Pulse Ox 97.7 F 74 19 101/75 100 10/29/18 02:55 10/29/18 04:03 10/29/18 02:55 10/29/18 02:55 10/29/18 04:03 - Physical Exam Comments: 10/29/18 08:01 Patient endorsed to me by Dr. Coe. Patient is a 28-year-old female with history of schizophrenia and bipolar disorder who presents with atypical chest pain for which she been seen previously. EKG is within acute ischemia. First set of cardiac enzymes within normal limit. Awaiting second set of cardiac enzymes. We'll administer ibuprofen for pain relief. ED Treatment Course - LABORATORY CBC & Chemistry Diagram: 10/29/18 04:42 10/29/18 04:42 - ADDITIONAL ORDERS Additional order review: Laboratory Results 10/29/18 10/29/18 10/29/18 04:42 04:42 04:42 Sodium 137 Potassium 4.2 Chloride 108 H Carbon Dioxide 24 Anion Gap 5 L BUN 14 Creatinine 0.8 Creat Clearance w eGFR > 60 Random Glucose 99 Calcium 8.1 L Total Bilirubin 0.2 AST 12 L ALT 15 Alkaline Phosphatase 71 Troponin I < 0.02 Total Protein 6.9 Albumin 3.3 L Lipase 324 Urine Color Urine Appearance Urine pH Ur Specific [place] Urine Protein Urine Glucose (UA) Urine Ketones Urine Blood Urine Nitrite Urine Bilirubin Urine Urobilinogen Ur Leukocyte Esterase Urine HCG, Qual 10/29/18 04:18 Sodium Potassium Chloride Carbon Dioxide Anion Gap BUN Creatinine Creat Clearance w eGFR Random Glucose Calcium Total Bilirubin AST ALT Alkaline Phosphatase Troponin I Total Protein Albumin Lipase Urine Color Ltyellow Urine Appearance Clear Urine pH 8.0 D Ur Specific [place] 1.020 Urine Protein Negative Urine Glucose (UA) Negative Urine Ketones Negative Urine Blood Negative Urine Nitrite Negative Urine Bilirubin Negative Urine Urobilinogen Negative Ur Leukocyte Esterase Negative Urine HCG, Qual Negative 10/29/18 04:42 RBC 4.63 MCV 67.1 L MCHC 30.4 L RDW 15.7 H MPV 9.2 Neutrophils % 62.1 Lymphocytes % 25.6 Monocytes % 9.1 Eosinophils % 2.0 Basophils % 1.2 - Medications Given in the ED: ED Medications Discontinued Medications Generic Name Dose Route Start Last Admin Trade Name Freq PRN Reason Stop Dose Admin Acetaminophen 1,000 mg 10/29/18 04:36 10/29/18 04:56 Ofirmev Injection - IVPB 10/29/18 04:37 1,000 mg ONCE ONE Administration Al Hydroxide/Mg Hydroxide 30 ml 10/29/18 04:37 10/29/18 04:56 Mylanta Oral Suspension - PO 10/29/18 04:38 30 ml ONCE ONE Administration Famotidine/Sodium Chloride 20 mg in 50 mls @ 100 mls/hr 10/29/18 04:36 05:10 Pepcid 20 Mg Premixed Ivpb - IVPB 10/29/18 05:05 100 mls/hr ONCE ONE Administration Ketorolac Tromethamine 30 mg 10/29/18 05:34 10/29/18 06:23 Toradol Injection - IVPUSH 10/29/18 05:35 30 mg ONCE ONE Administration *DC/Admit/Observation/Transfer Diagnosis at time of Disposition: Atypical chest pain - Discharge Dispostion Disposition: HOME Condition at time of disposition: Stable - Referrals Referrals: Rose Joshi NP [Primary Care Provider] - - Patient Instructions Printed Discharge Instructions: DI for Atypical Chest Pain - Post Discharge Activity Forms/Work/School Notes: Back to Work
[2018-10-29] MEDS ORDERED: KETOROLAC TROMETHAMINE 15 MG/ML VIAL IVPUSH ONE (08:20)
[2018-10-29] MEDS ORDERED: KETOROLAC TROMETHAMINE 15 MG/ML VIAL ONE (08:32)
[2018-10-29 09:23] VITALS: BP 107/76; PULSE 76; TEMP 98.7
--- NOTE | 2018-10-29 13:35 | EKG ---
Test Reason : Blood Pressure : / mmHG Vent. Rate : 076 BPM Atrial Rate : 076 BPM P-R Int : 122 ms QRS Dur : 090 ms QT Int : 394 ms P-R-T Axes : 042 047 037 degrees QTc Int : 443 ms NORMAL SINUS RHYTHM NORMAL ECG WHEN COMPARED WITH ECG OF 19-OCT-2018 03:43, NO SIGNIFICANT CHANGE WAS FOUND Confirmed by ANDREINA POLANCO MD ([id number]) on 10/29/2018 1:35:10 PM Referred By: Confirmed By:ANDREINA POLANCO MD
== END 2018-10-29 09:28 | disposition home or self-care (01) ==
LOC: JER 02:55
PROC: 3E033NZ Introduction of Analgesics, Hypnotics, Sedatives into Peripheral Vein, Percutaneous Approach (ICD-10-PCS; principal; 2018-10-29)
PROC: 3E033GC Introduction of Other Therapeutic Substance into Peripheral Vein, Percutaneous Approach (ICD-10-PCS; 2018-10-29)
PROC: 3E0333Z Introduction of Anti-inflammatory into Peripheral Vein, Percutaneous Approach (ICD-10-PCS; 2018-10-29)
DX: R07.89 Other chest pain (principal); F20.0 Paranoid schizophrenia; F31.9 Bipolar disorder, unspecified; D64.9 Anemia, unspecified; K21.9 Gastro-esophageal reflux disease without esophagitis; Z91.013 Allergy to seafood; Z91.012 Allergy to eggs
CPT/HCPCS: 36415; 71045-TC-FY; 80053; 81003; 83690; 84484; 84703; 85025; 87086; 93005; 93010; 99283-25; J0131

== ENCOUNTER 2018-12-02 09:36 | Emergency (ER) | payer OTHER ==
[2018-12-02 09:50] VITALS: BP 108/60; PULSE 68; TEMP 98; BMI 37.0
[2018-12-02] MEDS ORDERED: IBUPROFEN 400 MG TABLET (FP) PO ONE ×2 (10:09→10:12)
--- NOTE | 2018-12-02 10:16 | PDOC ---
History of Present Illness - General Chief Complaint: Cold Symptoms Stated Complaint: COUGHING Time Seen by Provider: 12/02/18 10:08 History Source: Patient Exam Limitations: No Limitations - History of Present Illness Initial Comments: 12/02/18 10:09 Came for evaluation of fevers, nonproductive moist cough, headache/primarily frontal and back, earache and sore throat pain with generalized body aches 2 days. 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 12/02/18 10:21 Timing/Duration: reports: getting worse Severity: reports: mild Modifying Factors: improves with: coughing Associated Symptoms: reports: denies symptoms, fever/chills Past History - Travel Traveled outside of the country in the last 30 days: No Close contact w/someone who was outside of country & ill: No - Past Medical History Allergies/Adverse Reactions: Allergies Allergy/AdvReac Type Severity Reaction Status Date / Time egg Allergy Verified 12/02/18 09:41 shellfish derived Allergy Verified 12/02/18 09:41 SEA FOOD Allergy Uncoded 12/02/18 09:41 Home Medications: Ambulatory Orders Oseltamivir Phosphate [Tamiflu -] 75 mg PO BID #10 capsule 12/02/18 Anemia: Yes Asthma: Yes COPD: No DVT: No GI Disorders: Yes (GERD) Psychiatric Problems: Yes (BIPOLAR,SCHIZOPHRENIA,DEPRESSION,ANXIETY DISORDER) - Reproductive History (#): 0 Para: 0 Polycystic Ovaries: Yes Spontaneous : 0 - Immunization History Immunization Up to Date: Yes - Suicide/Smoking/Psychosocial Hx Smoking History: Never smoked Have you smoked in the past 12 months: No Hx Alcohol Use: No Drug/Substance Use Hx: No Substance Use Type: None Review of Systems - Review of Systems Able to Perform ROS?: Yes Is the patient limited [place] proficient: Yes Constitutional: Yes: Symptoms Reported, See HPI, Chills, Fever, Malaise HEENTM: Yes: Symptoms Reported, See HPI, Ear Pain, Nose Congestion, Throat Pain Respiratory: Yes: Symptoms reported, See HPI, Cough, Wheezing ABD/GI: Yes: See HPI, Nausea. No: Symptoms Reported, Vomiting Integumentary: Yes: Symptoms Reported, See HPI Neurological: Yes: Symptoms reported, See HPI, Headache All Other Systems: Reviewed and Negative *Physical Exam - Vital Signs Last Vital Signs Temp Pulse Resp BP Pulse Ox 98 F 68 15 108/60 96 12/02/18 09:42 12/02/18 09:42 12/02/18 09:42 12/02/18 09:42 12/02/18 09:42 - Physical Exam Comments: 12/02/18 10:20 GENERAL: [The child is awake, alert, and appropriately interactive.] EYES: [The pupils are equal, round, and reactive to light, with clear, conjunctiva.but glassy] NOSE: [The nose with clear drainage EARS: [The ear canals and tympanic membranes are congested but landmarks easily visualed ] THROAT: [The oropharynx is clear with erythema, no exudates. The mucous membranes are moist.] NECK: [The neck is supple with mildly tender adenopathy, no menigemous] CHEST: [The lungs are coarse but clear without crackles, or wheezes.] HEART: [Heart is regular rhythm, with normal S1 and S2, no murmurs.] ABDOMEN: [The abdomen is soft and nontender with normal bowel sounds. There is no organomegaly and no mass. There is no guarding or rebound.] EXTREMITIES: [Extremities are normal.] NEURO: [Behavior is normal for age.cranky but easily,m Tone is normal.] SKIN: [Skin is unremarkable without rash or swelling. There is no bruising, and there are no other signs of injury.] General Appearance: Yes: Nourished, Appropriately Dressed, Apparent Distress HEENT: positive: TRIP, Normal ENT Inspection, TMs Normal, Pharynx Normal Neck: positive: Supple, Lymphadenopathy (R), Lymphadenopathy (L). negative: Tender Respiratory/Chest: positive: Lungs Clear. negative: Wheezing Extremity: positive: Normal Capillary Refill Integumentary: positive: Dry, Warm, Pale Moderate Sedation - Procedure Monitoring Vital Signs: Procedure Monitoring Vital Signs Temperature 98 F 12/02/18 09:42 Pulse Rate 68 12/02/18 09:42 Respiratory Rate 15 12/02/18 09:42 Blood Pressure 108/60 12/02/18 09:42 O2 Sat by Pulse Oximetry (%) 96 12/02/18 09:42 Progress Note - Progress Note Progress Note: Influenza testing negative however patient has all clinical evidence of the flu with exposure in emergency department therefore will treat with Tamiflu *DC/Admit/Observation/Transfer Diagnosis at time of Disposition: Influenzal acute upper respiratory infection - Discharge Dispostion Disposition: HOME Condition at time of disposition: Stable Decision to Admit order: No - Prescriptions Prescriptions: Oseltamivir Phosphate [Tamiflu -] 75 mg PO BID #10 capsule - Referrals Referrals: ON STAFF,NOT [Primary Care Provider] - - Patient Instructions Printed Discharge Instructions: DI for Viral Upper Respiratory Infection -- Adult Additional Instructions: Rest, drink lots of fluids: Teas, water, soups, Pedialyte Saltwater gargles Steamy showers/seem to face break up mucus Old-fashioned treatments help! Avoid contact with others until fevers and cough resolved as this is very contagious Lots of handwashing and good hygiene Continue [id number] medications for symptomatic relief Tylenol or Motrin for fever and pain Take all of Tamiflu as directed: 1 tab every 12 hours for 5 days Followup with private physician in one to 2 days as needed or if worsening Return to emergency department for worsened symptoms, fevers, dehydration Influenza takes between 5 and 7 days for resolution To not participate in any activity, work, or school until fevers and cough are gone for at least one day - Post Discharge Activity Forms/Work/School Notes: Back to Work
== END 2018-12-02 10:58 | disposition home or self-care (01) ==
LOC: JERFT 09:36 → JER 09:36 → JERFT 10:58
DX: J11.1 Influenza due to unidentified influenza virus with other respiratory manifestations (principal); Z87.19 Personal history of other diseases of the digestive system; Z86.59 Personal history of other mental and behavioral disorders
CPT/HCPCS: 87804; 99281-25

== ENCOUNTER 2019-01-30 08:20 | Emergency (ER) | payer OTHER ==
[2019-01-30 08:27] VITALS: BP 105/61; PULSE 111; TEMP 99.6; BMI 37.0
--- NOTE | 2019-01-30 08:48 | PDOC ---
History of Present Illness - General Stated Complaint: Cold Symptoms Time Seen by Provider: 01/30/19 08:34 History Source: Patient Exam Limitations: No Limitations - History of Present Illness Initial Comments: 01/30/19 08:38 of onset of fevers, chills, and sore throat pain 2 days ago. Has used Tylenol and gargles but no resolved. Works at [employer]. Timing/Duration: unsure, 24 hours Severity: moderate Associated Symptoms: reports: fever/chills, malaise Past History - Travel Traveled outside of the country in the last 30 days: No Close contact w/someone who was outside of country & ill: No - Past Medical History Allergies/Adverse Reactions: Allergies Allergy/AdvReac Type Severity Reaction Status Date / Time egg Allergy Verified 01/30/19 08:23 shellfish derived Allergy Verified 01/30/19 08:23 SEA FOOD Allergy Uncoded 01/30/19 08:23 Home Medications: Ambulatory Orders NK [No Known Home Medication] 01/30/19 Anemia: Yes Asthma: Yes COPD: No DVT: No GI Disorders: Yes (GERD) Psychiatric Problems: Yes (BIPOLAR,SCHIZOPHRENIA,DEPRESSION,ANXIETY DISORDER) - Reproductive History (#): 0 Para: 0 Polycystic Ovaries: Yes Spontaneous : 0 - Immunization History Immunization Up to Date: Yes - Suicide/Smoking/Psychosocial Hx Smoking History: Never smoked Have you smoked in the past 12 months: No Hx Alcohol Use: No Drug/Substance Use Hx: No Substance Use Type: None Review of Systems - Review of Systems Able to Perform ROS?: Yes Is the patient limited Cook Islander proficient: Yes Constitutional: Yes: Symptoms Reported, See HPI, Chills, Fever, Malaise HEENTM: Yes: Symptoms Reported, See HPI, Nose Congestion, Throat Pain, Throat Swelling, Difficulty Swallowing Respiratory: Yes: See HPI. No: Symptoms reported, Cough ABD/GI: Yes: See HPI. No: Symptoms Reported All Other Systems: Reviewed and Negative *Physical Exam - Vital Signs Last Vital Signs Temp Pulse Resp BP Pulse Ox 99.6 F 111 H 18 105/61 99 01/30/19 08:24 01/30/19 08:24 01/30/19 08:24 01/30/19 08:24 01/30/19 08:24 - Physical Exam General Appearance: Yes: Nourished, Appropriately Dressed, Apparent Distress, Mild Distress HEENT: positive: TRIP, TMs Normal (congested but landmarks easily visualized), Tonsillar Exudate, Tonsillar Erythema, Nasal Congestion, Rhinorrhea Neck: positive: Supple, Lymphadenopathy (R), Lymphadenopathy (L) Respiratory/Chest: positive: Lungs Clear, Normal Breath Sounds Gastrointestinal/Abdominal: positive: Soft. negative: Tender Extremity: positive: Normal Capillary Refill, Normal Range of Motion Integumentary: positive: Dry, Warm, Pale Neurologic: positive: foot and ankle surgeon II-XII NML intact, Fully Oriented, Alert, Normal Mood/ Affect, Normal Response, Motor Strength 5/5 Moderate Sedation - Procedure Monitoring Vital Signs: Procedure Monitoring Vital Signs Temperature 99.6 F 01/30/19 08:24 Pulse Rate 111 H 01/30/19 08:24 Respiratory Rate 18 01/30/19 08:24 Blood Pressure 105/61 01/30/19 08:24 O2 Sat by Pulse Oximetry (%) 99 01/30/19 08:24 *DC/Admit/Observation/Transfer Diagnosis at time of Disposition: Bronchitis - Discharge Dispostion Disposition: HOME Condition at time of disposition: Stable Decision to Admit order: No - Referrals - Patient Instructions Printed Discharge Instructions: DI for Acute Bronchitis Additional Instructions: Rest, drink lots of fluids: Teas, water, soups, Pedialyte Saltwater gargles Steamy showers/seem to face break up mucus Avoid contact with others until fevers and cough resolved Lots of handwashing and good hygiene Continue [id number] medications for symptomatic relief Tylenol or Motrin for fever and pain Azithromycin as directed Followup with private physician in one to 2 days as needed Return to emergency department for worsened symptoms, fevers, dehydration - Post Discharge Activity Forms/Work/School Notes: Back to Work
== END 2019-01-30 09:33 | disposition home or self-care (01) ==
LOC: JER 08:20 → JERFT 08:20
DX: J40 Bronchitis, not specified as acute or chronic (principal)
CPT/HCPCS: 84703; 99281-25

== ENCOUNTER 2019-03-09 23:53 | Emergency (ER) | payer OTHER ==
--- NOTE | 2019-03-10 00:52 | PDOC ---
History of Present Illness - General Chief Complaint: Chest Pain Stated Complaint: CHEST PAIN SOB Time Seen by Provider: 03/10/19 00:52 History Source: Patient - History of Present Illness Initial Comments: 03/10/19 00:55 28 year old female with pmhx of schitzophrenia, bipolar disorder, anemia, asthma , GERD Complaining of left-sided chest pain since 12 AM. Denies nausea, vomiting , dizziness, weakness. Patient has multiple visits to the ER for chest pain. Most recent stress and echo was done by cardiology on 10/2018 patient reports that she was told she has an enlarged heart. Patient denies drug or alcohol use. Denies taking any medication other than psych meds. Patient is Alert crying. Patient denies pleuritic chest pain, recent travel, OCP use, along sitting. 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 [employer] Past History - Past Medical History Allergies/Adverse Reactions: Allergies Allergy/AdvReac Type Severity Reaction Status Date / Time egg Allergy Verified 01/30/19 08:23 shellfish derived Allergy Verified 01/30/19 08:23 SEA FOOD Allergy Uncoded 01/30/19 08:23 Home Medications: Ambulatory Orders Azithromycin [Zithromax -] 250 mg PO UTDICT #6 tab 01/30/19 Anemia: Yes Asthma: Yes COPD: No DVT: No GI Disorders: Yes (GERD) Psychiatric Problems: Yes (BIPOLAR,SCHIZOPHRENIA,DEPRESSION,ANXIETY DISORDER) - Reproductive History (#): 0 Para: 0 Polycystic Ovaries: Yes Spontaneous : 0 - Immunization History Immunization Up to Date: Yes - Suicide/Smoking/Psychosocial Hx Smoking History: Never smoked Have you smoked in the past 12 months: No Hx Alcohol Use: No Drug/Substance Use Hx: No Substance Use Type: None Review of Systems - Review of Systems Able to Perform ROS?: Yes Is the patient limited Welsh proficient: No Constitutional: No: Symptoms Reported, See HPI, Chills, Diaphoresis, Fever, Loss of Appetite, Malaise, Night Sweats, Weakness, Weight Stable, Unintentional Wgt. Loss, Unexplained wgt Loss, Other Cardiac (ROS): Yes: Chest Pain. No: Symptoms Reported, See HPI, Edema, Irregular Heart Rate, Lightheadedness, Palpitations, Syncope, Chest Tightness, Other *Physical Exam - Vital Signs Last Vital Signs Temp Pulse Resp BP Pulse Ox 97.4 F L 63 18 97/55 L 98 03/09/19 23:55 03/09/19 23:55 03/09/19 23:55 03/09/19 23:55 03/09/19 23:55 - Physical Exam General Appearance: Yes: Appropriately Dressed Respiratory/Chest: positive: Lungs Clear, Normal Breath Sounds Cardiovascular: positive: Regular Rhythm, Regular Rate Gastrointestinal/Abdominal: positive: Normal Bowel Sounds, Soft Extremity: positive: Normal Capillary Refill, Normal Inspection, Normal Range of Motion Heart Score/ECG Review - History History: Slightly suspicious - Electrocardiogram EKG: Normal - Age Age: </= 45 - Risk Factors Based on the list above the patient has:: No risk factors known - Troponin Troponin: </= normal limit - Score Heart Score - Total: 0 - ECG Intrepretation Rhythm: Regular Rhythm Comment:: 03/10/19 05:58 NSR 67 bpm ED Treatment Course - LABORATORY CBC & Chemistry Diagram: 03/10/19 01:40 03/10/19 01:40 - ADDITIONAL ORDERS Additional order review: 03/10/19 01:40 RBC 4.90 MCV 66.5 L MCHC 31.4 L RDW 18.3 H MPV 9.4 Neutrophils % 53.9 Lymphocytes % 35.0 D Monocytes % 8.6 Eosinophils % 1.9 Basophils % 0.6 - RADIOLOGY Radiology Studies Ordered: Category Date Time Status CHEST PA & LAT [RAD] Stat Radiology 03/10/19 01:13 Completed Chest X-Ray Result: No Infiltrates - Medications Given in the ED: ED Medications Discontinued Medications Generic Name Dose Route Start Last Admin Trade Name Freq PRN Reason Stop Dose Admin Aspirin 162 mg 03/10/19 01:13 03/10/19 01:43 Asa - PO 03/10/19 01:14 162 mg ONCE ONE Administration Medical Decision Making - Medical Decision Making 03/10/19 05:54 A: chest pain P; labs troponin <0.02 x 2 EKG chest xray outpatient cardiology follow up *DC/Admit/Observation/Transfer Diagnosis at time of Disposition: Chest pain Qualifiers: Chest pain type: unspecified Qualified Code(s): R07.9 - Chest pain, unspecified - Discharge Dispostion Disposition: HOME Condition at time of disposition: Fair - Referrals Referrals: Rose Joshi NP [Primary Care Provider] - Dionte Uribe MD [Staff Physician] - Call tomorrow - Patient Instructions Printed Discharge Instructions: DI for Atypical Chest Pain Additional Instructions: your cardiac work up was normal in the emergency room . 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 Additional Instructions: * Please call your personal physician to report your Emergency Department visit and to report your progress, if any. * If there is no improvement in symptoms in 2 days call your physician. * Return to the Emergency Department for any worsening symptoms. - Post Discharge Activity
--- NOTE | 2019-03-10 01:03 | PDOC ---
ED Treatment Course - LABORATORY CBC & Chemistry Diagram: 03/10/19 01:40 03/10/19 01:40 Medical Decision Making - Medical Decision Making 03/10/19 01:03 Patient seen by the advanced practice provider under my direct supervision. Ancillary testing reviewed as necessary. I agree with plan as outlined by the advanced practice provider. *DC/Admit/Observation/Transfer Diagnosis at time of Disposition: Chest pain Qualifiers: Chest pain type: unspecified Qualified Code(s): R07.9 - Chest pain, unspecified - Discharge Dispostion Condition at time of disposition: Fair - Referrals Referrals: Rose Joshi NP [Primary Care Provider] - - Patient Instructions - Post Discharge Activity
[2019-03-10] MEDS ORDERED: ASPIRIN 81 MG CHEWABLE TABLETS PO ONE (01:13)
[2019-03-10] MEDS ORDERED: ASPIRIN 81 MG CHEWABLE TABLETS ONE (01:24)
[2019-03-10 01:35] VITALS: BP 97/55; PULSE 63; TEMP 97.4; BMI 37.0
[2019-03-10 01:48] LABS: BASO % 0.6 % (0-2.0); EOS % 1.9 % (0-4.5); HEMATOCRIT 32.6 % (32.4-45.2); HEMOGLOBIN 10.2 GM/dL (10.7-15.3); MCH 20.9 pg (25.7-33.7); MCHC 31.4 g/dl (32.0-36.0); MEAN CELL VOLUME 66.5 fl (80-96); MEAN PLT VOLUME 9.4 fl (7.5-11.1); MONO % 8.6 % (3.8-10.2); NEUT % 53.9 % (42.8-82.8); PLATELET COUNT 265 K/MM3 (134-434); RDW 18.3 % (11.6-15.6)
[2019-03-10 02:00] LABS: INR 1.03 (0.83-1.09); PROTHROMBIN TIME (PATIENT) 12.2 SEC (9.7-13.0)
[2019-03-10 02:20] LABS: ALBUMIN 3.4 g/dl (3.4-5.0); ALK PHOS 73 U/L (45-117); ANION GAP 6 MMOL/L (8-16); BILIRUBIN,TOTAL 0.2 mg/dL (0.2-1); BLOOD UREA NITROGEN 10 mg/dL (7-18); CALCIUM 8.6 mg/dL (8.5-10.1); CHLORIDE 108 mmol/L (98-107); CO2 24 mmol/L (21-32); CREATININE 0.7 mg/dL (0.55-1.3); GLUCOSE,RANDOM 93 mg/dL (74-106); MAGNESIUM 2.2 mg/dL (1.8-2.4); SGOT/AST 19 U/L (15-37); SGPT/ALT 14 U/L (13-61); SODIUM 138 mmol/L (136-145); TOT PROT 7.3 g/dl (6.4-8.2)
[2019-03-10 02:25] LABS: URINE APPEARANCE CLEAR; URINE BILIRUBIN NEGATIVE (NEGATIVE); URINE COLOR YELLOW; URINE GLUCOSE (UA) NEGATIVE (NEGATIVE); URINE KETONE NEGATIVE (NEGATIVE); URINE LEUK ESTERASE NEGATIVE (NEGATIVE); URINE NITRITE NEGATIVE (NEGATIVE); URINE PROTEIN NEGATIVE (NEGATIVE); URINE UROBILINOGEN 0.2 mg/dL (0.2-1.0)
[2019-03-10 05:26] LABS: ANISOCYTOSIS 3+; MACROCYTOSIS 0; PLATELET ESTIMATE NORMAL
--- NOTE | 2019-03-10 08:33 | EKG ---
Test Reason : Blood Pressure : / mmHG Vent. Rate : 067 BPM Atrial Rate : 067 BPM P-R Int : 152 ms QRS Dur : 086 ms QT Int : 404 ms P-R-T Axes : 025 014 022 degrees QTc Int : 426 ms NORMAL SINUS RHYTHM NORMAL ECG WHEN COMPARED WITH ECG OF 29-OCT-2018 03:17, NO SIGNIFICANT CHANGE WAS FOUND Confirmed by MD JENNIFER, LUPE ([id number]) on 03/10/2019 8:33:19 AM Referred By: Confirmed By:LUPE RODRIGUEZ MD
--- NOTE | 2019-03-10 08:35 | EKG ---
Test Reason : Blood Pressure : / mmHG Vent. Rate : 060 BPM Atrial Rate : 060 BPM P-R Int : 162 ms QRS Dur : 080 ms QT Int : 414 ms P-R-T Axes : 036 024 027 degrees QTc Int : 414 ms NORMAL SINUS RHYTHM WITH SINUS ARRHYTHMIA NORMAL ECG WHEN COMPARED WITH ECG OF 29-OCT-2018 03:17, NO SIGNIFICANT CHANGE WAS FOUND Confirmed by MD JENNIFER, LUPE ([id number]) on 03/10/2019 8:34:36 AM Referred By: Confirmed By:LUPE RODRIGUEZ MD
== END 2019-03-10 06:34 | disposition home or self-care (01) ==
LOC: JER 23:53
DX: R07.9 Chest pain, unspecified (principal); K21.9 Gastro-esophageal reflux disease without esophagitis; J45.909 Unspecified asthma, uncomplicated; Z86.59 Personal history of other mental and behavioral disorders
CPT/HCPCS: 36415; 71046-TC-FY; 80053; 81003; 82550; 82553; 83735; 84484; 84703; 85025; 85610; 93005; 93010; 99281-25

== ENCOUNTER 2019-03-21 13:58 | Emergency (ER) | payer OTHER ==
[2019-03-21 14:13] VITALS: PULSE 99; BMI 37.0
--- NOTE | 2019-03-21 14:50 | PDOC ---
History of Present Illness - General Chief Complaint: Chest Pain Stated Complaint: CHEST PAIN/ LOWER ABD PAIN Time Seen by Provider: 03/21/19 14:24 - History of Present Illness Initial Comments: 03/21/19 14:43 The patient is a 28 year old female with a PMH of BPD, schizophrenia, anemia who presents to our ED c/o 2 day h/o chest pain and abdominal pain. Pain started evening and is sharp, L sided, intermittent and radiates down her R arm. Associated with shortness of breath. Pain woke her up from sleep @ midnight and improved by Saturday. Patient went to work Saturday morning without any repeat pain and then felt the pain again yesterday night. The pain persisted into today prompting her to come to the ED. Abdominal pain also started @ midnight and is sharp, diffuse, without any identifiable triggering or relieving factors. Tolerating PO intake, last BM was this morning and was normal. H/o similar pain one month previous, evaluated in our ED and discharged home. States she has cardiology appointment for later this month. No known family cardiac history. Denies fevers, chills, numbness/tingling, nausea/vomiting, endorses dysuria w/o hematuria. Allergy: Heparin Surgical: none reported Social: denies toxic habits As per EMR, patient evaluated in our ED on 02/2019 for chest pain, Troponin (-) x1, EKG non-ischemic, patient discharged with Jacqueline referral. Past History - Past Medical History Allergies/Adverse Reactions: Allergies Allergy/AdvReac Type Severity Reaction Status Date / Time egg Allergy Verified 03/21/19 14:08 heparin (porcine) Allergy Verified 03/21/19 14:08 shellfish derived Allergy Verified 03/21/19 14:08 SEA FOOD Allergy Uncoded 03/21/19 14:08 Home Medications: Ambulatory Orders Azithromycin [Zithromax -] 250 mg PO UTDICT #6 tab 01/30/19 Anemia: Yes Asthma: Yes COPD: No DVT: No GI Disorders: Yes (GERD) Psychiatric Problems: Yes (BIPOLAR,SCHIZOPHRENIA,DEPRESSION,ANXIETY DISORDER) - Reproductive History (#): 0 Para: 0 Polycystic Ovaries: Yes Spontaneous : 0 - Immunization History Immunization Up to Date: Yes - Suicide/Smoking/Psychosocial Hx Smoking History: Never smoked Have you smoked in the past 12 months: No Information on smoking cessation initiated: No Hx Alcohol Use: No Drug/Substance Use Hx: No Substance Use Type: None Review of Systems - Review of Systems Constitutional: No: Chills, Fever HEENTM: No: Recent change in vision Respiratory: Yes: Shortness of Breath. No: Cough, Wheezing Cardiac (ROS): Yes: Chest Pain. No: Lightheadedness, Palpitations, Syncope ABD/GI: No: Constipated, Diarrhea, Nausea, Vomiting : Yes: Burning. No: Hematuria *Physical Exam - Vital Signs Last Vital Signs Temp Pulse Resp BP Pulse Ox 99 H 16 96/57 L 100 03/21/19 14:08 03/21/19 14:08 03/21/19 14:08 03/21/19 14:08 - Physical Exam General Appearance: Yes: Nourished, Appropriately Dressed HEENT: positive: Normal Voice, Hearing Grossly Normal Neck: positive: Trachea midline, Supple Respiratory/Chest: positive: Lungs Clear, Normal Breath Sounds Cardiovascular: positive: Regular Rate, S1, S2. 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 ROS positive for dysuria. VS unremarkable. Frontal diagnosis: r/o ACS, costochondritis, MSK, esophageal spasm, anemia referred diaphragmatic pain --> hepatic/GB pathology, the latter less likely. Will obtain EKG, Troponin x1, CXR, CBC/CMP. GI cocktail + IV hydration. Reassess. 03/21/19 15:53 EKG non-ischemic as documented in EKG section of EMR 03/21/19 16:00 03/21/19 16:10 Hb stable @ 10.3 Urine (-) 03/21/19 16:25 Troponin (-) x1 03/21/19 16:43 Patient reassessed @ bedside VSS Continue to c/o chest and abdominal pain UA clean Will give Toradol for chest pain CXR pending and then d/c home 03/21/19 17:07 My read of CXR shows clear costophrenic angles, no cardiomegaly, no consolidation/infiltrate 03/21/19 17:38 Patient reassessed @ bedside VSS Symptomatically improved s/p Toradol. Counseled that at this time we believe her SiSx are unlikely 2/2 to acute medical emergency and of the importance of evaluation by cardiology. Order placed for f/u call if patient's UCx positive Clinical Impression: Atypical Chest Pain I discussed the physical exam findings, ancillary test results and final diagnoses with the patient. I answered all of the patient's questions. The patient was satisfied with the care received and felt comfortable with the discharge plan and treatment plan. The patient will return to the Emergency Department with any new, persistent or worsening symptoms. *DC/Admit/Observation/Transfer Diagnosis at time of Disposition: Chest pain, Abdominal pain - Discharge Dispostion Disposition: HOME Condition at time of disposition: Good - Referrals Referrals: ON STAFF,NOT [Primary Care Provider] - Thanh Espinoza MD [Staff Physician] - Dionte Uribe MD [Staff Physician] - Alonzo Feliciano MD [Staff Physician] - Darshan Kat MD [Staff Physician] - - Patient Instructions Printed Discharge Instructions: DI for Atypical Chest Pain Additional Instructions: You were evaluated today for your chest pain. All of your labs and an EKG showed no concerning findings. At this time you are safe for discharge home. Please make an appointment with a software quality engineer for further evaluation in the next 1 week. We have provided a list of cardiologists or you can call your insurance company for a list of doctors. Please also make a follow up appointment with your primary care doctor within one week. Your care is not complete until you are evaluated by both a software quality engineer or your primary care doctor. You can take Tylenol (up to 3000 mg daily) alternating with Motrin (up to 3200 mg daily) for your pain every 4-6 hours for the next 1 week until you are evaluated by cardiology and your primary care doctor. Return to the Emergency Department for any new/worsening/concerning symptoms. - Post Discharge Activity
--- NOTE | 2019-03-21 14:58 | PDOC ---
Documentation entered by Varinder Hay SCRIBE, acting as scribe for Sarika Oconnell MD. Sarika Oconnell MD: This documentation has been prepared by the Satnam swift Nirvannie, SCRIBE, under my direction and personally reviewed by me in its entirety. I confirm that the documentation accurately reflects all work, treatment, procedures, and medical decision making performed by me. Attending Attestation - Resident Resident Name: Gini Quiros - ED Attending Attestation I have performed the following: I have examined & evaluated the patient, The case was reviewed & discussed with the resident, I agree w/resident's findings & plan - HPI HPI: 03/21/19 15:12 [id number] with significant past medical history of bipolar disorder, schizophrenia, and anemia who presents to the ED with 2 days of chest pain and abdominal pain. Patient describes her chest pain as left sided, sharp, with mild radiation down her left arm with associated shortness of breath onsetting 5/9 and improving the following morning. She describes her lower abdominal pain as a sharp pain onsetting 5/9, associated with burning on urination; no urgency or frequency, hematuria.. She notes another episode of chest pain, prompting her arrival to the ED today. As per EMR, patient was evaluated in the ER with similar symptoms 03/10/19 and discharged with cardiology follow-up (appointment scheduled for this month). saw PMD yesterday, cards referral given. Denies fever, chills, palpitation, dizziness, weakness, N, V, D, bladder and bowel problems, leg swelling, No sick contacts or travel. No new changes in medications. No suspicious food intake LMP 02/28/19, no VB or discharge. Allergies: Egg, herparin (porcine), shellfish derived, seafood Past Medical History: bipolar disorder, schizophrenia, and anemia Social history: Lives with family. No tobacco, ETOH or drug use. Surgical history: None reported. Meds: as documented in EMR PMD: Rose Joshi NP 03/21/19 15:35 - Physicial Exam PE: 03/21/19 14:58 Agree with the resident's HPI and PE as documented in the electronic medical record. NAD, well appearing, PERRL, EOMI, MMM, mildly pale conjunctiva, anicteric; neck supple. lungs clear, RRR, no murmur, abdomen soft, mild suprapubic TTP, no RLQ or pelvic tenderness, no CVAT. LECHUGA x4, no focal neuro deficits. No peripheral edema. normal color for ethnicity, WWP. 03/21/19 15:36 - Medical Decision Making 03/21/19 14:57 I, Sarika Oconnell MD, attest that this document has been prepared under my direction and personally reviewed by me in its entirety. I further attest, that it accurately reflects all work, treatment, procedures and medical decision -making performed by me. See HPI for details Vital signs reviewed, soft BP, rechecked and normal. prior VS showed borderline soft pressures, so this is patient's norm. DDx UTI, cystitis, ACS, arrhythmia, costochondritis, PUD, gastritis, esophageal spasm, anxiety reaction. anemia, electrolyte/metabolic derangements, clinically doubt PE or dissection. Prior notes reviewed, including admissions, discharges and consultations. laboratory results and imaging reviewed, basic labs and lytes wnl, baseline anemia noted which pt is aware of, no significant derangement. UA_ preg test neg. UA - neg for prelim infection, f/u culture. CXR_no acute chest pathology Cardiac panel_neg EKG normal sinus rhythm at 89 bpm, no interval abnormalities, narrow QRS, ST and T wave segments and morphology normal. Nonspecific T wave abnormalities flattening in III only, unchanged. ED course - no acute events. - cards follow up given for recurrent chest pain eval Dispo: Pt informed of my clinical impression, treatment recommendations and disposition plan. All questions answered to patient's satisfaction and expressed understanding and comfort with this. Reasons for returning to the ED sooner discussed including new or persistent/worsening symptoms with the patient otherwise, follow up with primary care physician. At the time of discharge, the patient is alert, clinically improved, tolerating po and verbalizes understanding of instructions, satisfied with the care received and felt comfortable with the plan. Patient does not suffer from an acute life- threatening medical condition at this time and is safe for outpatient follow- up. 03/21/19 15:03 03/21/19 15:05 03/21/19 15:37 03/22/19 07:24 Heart Score/ECG Review #1 ECG reviewed & interpreted by me at: 15:00 General ECG Interpretation: Sinus Rhythm, Normal Rate, Normal Intervals Compared to previous ECG there are: No significant change 03/21/19 15:05 EKG normal sinus rhythm at 89 bpm, no interval abnormalities, narrow QRS, ST and T wave segments and morphology normal. Nonspecific T wave abnormalities flattening in III only, unchanged.
[2019-03-21] MEDS ORDERED: SODIUM CHLORIDE 0.9% 500 ML INFUS.BAG IV ONE (15:02)
[2019-03-21] MEDS ORDERED: ACETAMINOPHEN 1000 MG/100 ML VIAL (NON FORMULARY) IVPB ONE (15:02)
[2019-03-21] MEDS ORDERED: MAG HYDROX/AL HYDROX/SIMETH 30 ML UNIT-DOSE CUP PO ONE (15:02)
[2019-03-21 15:03] VITALS: BP 113/87
[2019-03-21] MEDS ORDERED: ACETAMINOPHEN INJECTION 100 ML IVPB ONE (15:06)
[2019-03-21] MEDS ORDERED: MAG HYDROX/AL HYDROX/SIMETH 30 ML UNIT-DOSE CUP ONE (15:07)
[2019-03-21 15:52] LABS: BASO % 0.7 % (0-2.0); EOS % 0.8 % (0-4.5); HEMATOCRIT 33.8 % (32.4-45.2); HEMOGLOBIN 10.3 GM/dL (10.7-15.3); LYMPH % 26.7 % (8-40); MCH 20.3 pg (25.7-33.7); MCHC 30.6 g/dl (32.0-36.0); MEAN CELL VOLUME 66.4 fl (80-96); MEAN PLT VOLUME 9.4 fl (7.5-11.1); MONO % 8.8 % (3.8-10.2); PLATELET COUNT 284 K/MM3 (134-434); RBC 5.09 M/mm3 (3.60-5.2); RDW 17.6 % (11.6-15.6); WHITE BLOOD COUNT 6.4 K/mm3 (4.0-10.0)
[2019-03-21 16:01] LABS: PH,URINE 5.5 (5.0-8.0); URINE APPEARANCE CLEAR; URINE BILIRUBIN NEGATIVE (NEGATIVE); URINE COLOR YELLOW; URINE GLUCOSE (UA) NEGATIVE (NEGATIVE); URINE KETONE NEGATIVE (NEGATIVE); URINE LEUK ESTERASE NEGATIVE (NEGATIVE); URINE NITRITE NEGATIVE (NEGATIVE); URINE PROTEIN NEGATIVE (NEGATIVE); URINE UROBILINOGEN 0.2 mg/dL (0.2-1.0)
[2019-03-21 16:03] LABS: HCG,QUALITATIVE URINE Negative
[2019-03-21 16:23] LABS: ALBUMIN 3.6 g/dl (3.4-5.0); ALK PHOS 66 U/L (45-117); ANION GAP 6 MMOL/L (8-16); BILIRUBIN,TOTAL 0.2 mg/dL (0.2-1); BLOOD UREA NITROGEN 13 mg/dL (7-18); CALCIUM 8.9 mg/dL (8.5-10.1); CHLORIDE 107 mmol/L (98-107); CO2 25 mmol/L (21-32); CREATININE 0.9 mg/dL (0.55-1.3); GLUCOSE,RANDOM 79 mg/dL (74-106); POTASSIUM 4.1 mmol/L (3.5-5.1); SGOT/AST 17 U/L (15-37); SGPT/ALT 15 U/L (13-61); SODIUM 137 mmol/L (136-145); TOT PROT 7.4 g/dl (6.4-8.2)
[2019-03-21] MEDS ORDERED: KETOROLAC TROMETHAMINE 30 MG/1 ML VIAL IM ONE (16:44)
[2019-03-21] MEDS ORDERED: KETOROLAC TROMETHAMINE 30 MG/1 ML VIAL ONE (17:22)
[2019-03-21 17:26] LABS: ANISOCYTOSIS 1+
[2019-03-21 17:28] LABS: MACROCYTOSIS 1+; OVALOCYTE 1+; PLATELET ESTIMATE ADEQUATE
--- NOTE | 2019-03-22 09:35 | EKG ---
Test Reason : Blood Pressure : / mmHG Vent. Rate : 089 BPM Atrial Rate : 089 BPM P-R Int : 134 ms QRS Dur : 078 ms QT Int : 334 ms P-R-T Axes : 034 020 025 degrees QTc Int : 406 ms NORMAL SINUS RHYTHM NORMAL ECG WHEN COMPARED WITH ECG OF 10-MAR-2019 05:58, NO SIGNIFICANT CHANGE WAS FOUND Confirmed by NINA GELLER MD ([id number]) on 03/22/2019 9:35:03 AM Referred By: Confirmed By:NINA GELLER MD
== END 2019-03-21 18:04 | disposition home or self-care (01) ==
LOC: JER 13:58
PROC: 3E033NZ Introduction of Analgesics, Hypnotics, Sedatives into Peripheral Vein, Percutaneous Approach (ICD-10-PCS; principal; 2019-03-21)
PROC: 3E0233Z Introduction of Anti-inflammatory into Muscle, Percutaneous Approach (ICD-10-PCS; 2019-03-21)
PROC: 3E0337Z Introduction of Electrolytic and Water Balance Substance into Peripheral Vein, Percutaneous Approach (ICD-10-PCS; 2019-03-21)
DX: R07.9 Chest pain, unspecified (principal); R10.9 Unspecified abdominal pain; J45.909 Unspecified asthma, uncomplicated; K21.9 Gastro-esophageal reflux disease without esophagitis; F31.9 Bipolar disorder, unspecified; F41.8 Other specified anxiety disorders
CPT/HCPCS: 36415; 71045-TC-FY; 80053; 81003; 82550; 82553; 84484; 84703; 85025; 87086; 93005; 93010; 96361; 96372; 96374; 99284-25; J0131

== ENCOUNTER 2019-05-09 11:03 | Emergency (ER) | payer OTHER ==
[2019-05-09 11:10] VITALS: BP 101/58; PULSE 75; TEMP 98.1; BMI 35.2
[2019-05-09] MEDS ORDERED: KETOROLAC TROMETHAMINE 30 MG/1 ML VIAL IM ONE (11:48)
--- NOTE | 2019-05-09 11:48 | PDOC ---
History of Present Illness - General Chief Complaint: Headache Stated Complaint: MIGRAINE Time Seen by Provider: 05/09/19 11:38 History Source: Patient Exam Limitations: Clinical Condition - History of Present Illness Initial Comments: 05/09/19 11:58 Patient with no significant past medical history present with complaint of right -sided headache which she described past throbbing headache with intermittent blurry vision for 3 days. Patient did not take anything for headache. Patient reported pain when she press on the right side of face and forehead. With mild pain behind right eye.Patient denies history of headaches. Denies dizziness, nausea or vomiting. Denies trauma or injury to head. Denies feeling of imbalance. Denies any other symptoms Timing/Duration: reports: waxing and waning, other (3 days) Past History - Past Medical History Allergies/Adverse Reactions: Allergies Allergy/AdvReac Type Severity Reaction Status Date / Time egg Allergy Verified 05/09/19 11:09 heparin (porcine) Allergy Verified 05/09/19 11:09 shellfish derived Allergy Verified 05/09/19 11:09 SEA FOOD Allergy Uncoded 05/09/19 11:09 Home Medications: Ambulatory Orders Azithromycin [Zithromax -] 250 mg PO UTDICT #6 tab 01/30/19 Butalb/Acetaminophen/Caffeine [Fioricet 50-300-40 mg Capsule] 1 each PO Q6H PRN #20 capsule 05/09/19 Anemia: Yes Asthma: Yes COPD: No DVT: No GI Disorders: Yes (GERD) Psychiatric Problems: Yes (BIPOLAR,SCHIZOPHRENIA,DEPRESSION,ANXIETY DISORDER) - Reproductive History (#): 0 Para: 0 Polycystic Ovaries: Yes Spontaneous : 0 - Immunization History Immunization Up to Date: Yes - Suicide/Smoking/Psychosocial Hx Smoking History: Never smoked Have you smoked in the past 12 months: No Hx Alcohol Use: No Drug/Substance Use Hx: No Substance Use Type: None Neuro Specific PMHX - Complaint Specific PMHX Glaucoma: No Herniated Disk: No Laminectomy: No Migraine: No Multiple Sclerosis: No Neuropathy: No TIA: No Review of Systems - Review of Systems Able to Perform ROS?: Yes Is the patient limited Colombian proficient: No Constitutional: No: Malaise, Weakness HEENTM: Yes: Symptoms Reported, See HPI, Eye Pain (right eye), Blurred Vision ( intermmitent in right eye). No: Tearing, Recent change in vision, Double Vision , Cataracts, Ear Pain, Ocular Prothesis, Ear Discharge, Nose Pain, Nose Congestion, Tinnitus, Nose Bleeding, Hearing Loss, Throat Pain, Throat Swelling , Mouth Pain, Dental Problems, Difficulty Swallowing, Mouth Swelling, Other Respiratory: No: Symptoms reported, See HPI, Cough, Orthopnea, Shortness of Breath, SOB with Exertion, SOB at Rest, Stridor, Wheezing, Productive cough, Hemoptysis, Other Cardiac (ROS): No: Symptoms Reported, See HPI, Chest Pain, Edema, Irregular Heart Rate, Lightheadedness, Palpitations, Syncope, Chest Tightness, Other ABD/GI: No: Nausea, Vomiting Neurological: Yes: Symptoms reported, See HPI, Headache (right sided). No: Numbness, Paresthesia, Pre-Existing Deficit, Seizure, Tingling, Tremors, Weakness, Unsteady Gait, Ataxia, Dizziness, Other All Other Systems: Reviewed and Negative *Physical Exam - Vital Signs Last Vital Signs Temp Pulse Resp BP Pulse Ox 98.1 F 75 18 101/58 L 99 05/09/19 11:06 05/09/19 11:06 05/09/19 11:06 05/09/19 11:06 05/09/19 11:06 - Physical Exam Comments: 05/09/19 12:02 GENERAL: Well developed, well nourished. Awake and alert in mild acute distress. HEENT: Normocephalic, atraumatic. PERRLA, EOMI. No conjunctival pallor. Sclera are non- icteric. Moist mucous membranes. Oropharynx is clear. NECK: Supple. Full ROM. No JVD. No thyromegaly. No lymphadenopathy. CARDIOVASCULAR: Regular rate and rhythm. No murmurs, rubs, or gallops. Distal pulses are 2+ and symmetric. PULMONARY: No evidence of respiratory distress. Lungs clear to auscultation bilaterally. No wheezing, rales or rhonchi. MUSCULOSKELETAL Normal range of motion at all joints. No bony deformities or tenderness. EXTREMITIES: No cyanosis. No clubbing. No edema. SKIN: Warm and dry. Normal capillary refill. No rashes. No jaundice. NEUROLOGICAL: Alert, awake, appropriate. Cranial nerves 2-12 intact. No deficits to light touch and temperature in face, upper extremities and lower extremities. No motor deficits in the in face, upper extremities and lower extremities. Normoreflexic in the upper and lower extremities. Normal speech. Toes are down- going bilaterally. Gait is normal without ataxia. Normal tandem walking. Normal finger to nose to hand coordination. Normal heel-to-toe walking PSYCHIATRIC: Cooperative. Good eye contact. Appropriate mood and affect. General Appearance: Yes: Nourished, Appropriately Dressed, Mild Distress Medical Decision Making - Medical Decision Making 05/09/19 11:59 Patient with no significant past medical history present with complaint of right -sided headache which she described past throbbing headache with intermittent blurry vision for 3 days. Patient did not take anything for headache. Patient denies history of headaches. Denies dizziness, nausea or vomiting. Denies trauma or injury to head. Denies feeling of imbalance. Denies any other symptoms Clinical exam unremarkable with normal tandem walking, and normal neuro exam. Symptoms likely cluster headache. Will hold off head CT for now given no treatment has been attempted. Toradol 30 mg IM and Imitrex 50mg by mouth ordered for headache. Patient be discharged home on fioricet with neurology follow-up. *DC/Admit/Observation/Transfer Diagnosis at time of Disposition: Cluster headache, not intractable Qualifiers: Headache chronicity pattern: episodic headache Qualified Code(s): G44.019 - Episodic cluster headache, not intractable - Discharge Dispostion Disposition: HOME Condition at time of disposition: Stable Decision to Admit order: No - Prescriptions Prescriptions: Butalb/Acetaminophen/Caffeine [Fioricet 50-300-40 mg Capsule] 1 each PO Q6H PRN #20 capsule PRN Reason: headache - Referrals Referrals: Alin Corey MD [Staff Physician] - - Patient Instructions Printed Discharge Instructions: Cluster Headache, DI for Cluster Headache Additional Instructions: Take medication as prescribed. Follow-up with referred neurology if no improvement in 3 days. Come back to ER if worsening headache as symptoms. - Post Discharge Activity
[2019-05-09] MEDS ORDERED: SUMAtriptan SUCCINATE 50 MG TABLET PO SCH (12:00)
[2019-05-09] MEDS ORDERED: KETOROLAC TROMETHAMINE 30 MG/1 ML VIAL ONE (12:10)
== END 2019-05-09 12:50 | disposition home or self-care (01) ==
LOC: JER 11:03 → JERFT 11:03
PROC: 3E0233Z Introduction of Anti-inflammatory into Muscle, Percutaneous Approach (ICD-10-PCS; principal; 2019-05-09)
DX: G44.019 Episodic cluster headache, not intractable (principal); Z86.2 Personal history of diseases of the blood and blood-forming organs and certain disorders involving the immune mechanism; Z87.09 Personal history of other diseases of the respiratory system; Z86.59 Personal history of other mental and behavioral disorders
CPT/HCPCS: 96372; 99281-25

== ENCOUNTER 2019-09-28 10:37 | Emergency (ER) | payer OTHER ==
--- NOTE | 2019-09-28 11:05 | PDOC ---
Attending Attestation - Resident Resident Name: Eve Parr - ED Attending Attestation I have performed the following: I have examined & evaluated the patient, The case was reviewed & discussed with the resident, I agree w/resident's findings & plan, Exceptions are as noted - HPI HPI: 09/28/19 11:40 29yo female with hx of asthma - presents ambulatory c/o dysuria and suprapubic pain. Pt states dysuria and vaginal itching that started last night. Pt states urinary freq. Pt denies f/c. NO n/v/d. NO back pain. Pt states FDLMP was 08/28- started to have spotting today. States lower pelvic pain/suprapubic pain. Pt denies all other complaints. Did not try meds at home for pain. - Physicial Exam PE: 09/28/19 11:43 Gen: aaox3, nad heart: +s1s2 reg lungs: cta b/l abd: soft, suprapubic ttp, no rebound or guarding, no RLQ or LLQ ttp, no cva ttp ext: no c/c/e - Medical Decision Making 09/28/19 11:43 a/p: 29yo female with dysuria and suprapubic pain -suspect uti -also states vaginal itching- will perform pelvic exam -ua, ucg -pt is nontoxic in appearance -motrin when upreg neg 09/28/19 12:32 small amount of spotting on vaginal exam per DR. 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
[2019-09-28 11:28] VITALS: BP 98/67; PULSE 73; TEMP 97.6; BMI 35.2
[2019-09-28 11:48] LABS: EPI CELLS 0.4 /HPF (0-5/HPF); HYALINE CASTS 0 /lpf (0-8); PH,URINE 5.5 (5.0-8.0); URINE APPEARANCE CLEAR; URINE BACTERIA 11.3 /hpf (NEGATIVE); URINE BILIRUBIN NEGATIVE (NEGATIVE); URINE COLOR YELLOW; URINE GLUCOSE (UA) NEGATIVE (NEGATIVE); URINE KETONE NEGATIVE (NEGATIVE); URINE LEUK ESTERASE NEGATIVE (NEGATIVE); URINE NITRITE NEGATIVE (NEGATIVE); URINE PROTEIN NEGATIVE (NEGATIVE); URINE RBC 0 /hpf (0-4); URINE UROBILINOGEN 0.2 mg/dL (0.2-1.0); URINE WBC 0 /hpf (0-5)
--- NOTE | 2019-09-28 12:13 | PDOC ---
History of Present Illness - General Chief Complaint: Pain Stated Complaint: ABDOMINAL PAIN Time Seen by Provider: 09/28/19 10:58 - History of Present Illness Initial Comments: Stephanie Gregg is a 29yo woman with no known medical history who presents with suprapubic pain, dysuria, and vaginal itching since last night. She reports that the pain is cramping, 10/10, and located along the entire low abdomen. She denies any associated change in bowel habits, urinary frequency, hematuria, nausea/vomiting, or fever/chills though does note a small amount of vaginal spotting yesterday. Ms Gregg has never had similar pain before. She is currently sexually active with her and does not use control; she reports that her last period was from 08/28-09/01 but are generally irregular. She denies any unusual vaginal discharge, h/o STD, or other recent symptoms. Past History - Past Medical History Allergies/Adverse Reactions: Allergies Allergy/AdvReac Type Severity Reaction Status Date / Time egg Allergy Verified 05/09/19 11:09 heparin (porcine) Allergy Verified 05/09/19 11:09 shellfish derived Allergy Verified 05/09/19 11:09 SEA FOOD Allergy Uncoded 05/09/19 11:09 Home Medications: Ambulatory Orders Azithromycin [Zithromax -] 250 mg PO UTDICT #6 tab 01/30/19 Butalb/Acetaminophen/Caffeine [Fioricet 50-300-40 mg Capsule] 1 each PO Q6H PRN #20 capsule 05/09/19 Anemia: Yes Asthma: Yes COPD: No DVT: No GI Disorders: Yes (GERD) Psychiatric Problems: Yes (BIPOLAR,SCHIZOPHRENIA,DEPRESSION,ANXIETY DISORDER) - Reproductive History (#): 0 Para: 0 Polycystic Ovaries: Yes Spontaneous : 0 - Immunization History Immunization Up to Date: Yes - Psycho Social/Smoking Cessation Hx Smoking History: Never smoked Have you smoked in the past 12 months: No Information on smoking cessation initiated: No Hx Alcohol Use: No Drug/Substance Use Hx: No Substance Use Type: None Review of Systems - Review of Systems Comments:: General: No fevers, no chills, no weight or appetite change, no malaise HEENT: No changes in vision, no changes in hearing, no congestion, no sore throat CV: No chest pain, no palpitations, no LE edema Pulm: No SOB, no cough, no wheezing GI: No nausea or vomiting, no change in bowel habits, no melena : See HPI Musc: No back pain, no joint swelling, no recent injury Skin: No rash, no lesions, no erythema Endo: No excessive thirst, no heat/cold intolerance Heme: No unusual bruising or bleeding, no swollen glands Neuro: No syncope, no numbness/tingling, no focal weakness Vasc: No claudication Psych: No recent change in mood, no SI or HI *Physical Exam - Vital Signs Last Vital Signs Temp Pulse Resp BP Pulse Ox 97.6 F 73 16 98/67 100 09/28/19 10:40 09/28/19 10:40 09/28/19 10:40 09/28/19 10:40 09/28/19 10:40 - Physical Exam Comments: General: Comfortable, no acute distress HEENT: Atraumatic, PERRL, EOMI, MMM, voice normal Cards: RRR, no murmur appreciated Pulm: Comfortable on room air, clear to auscultation bilaterally Abd: Soft, nontender, nondistended : No CVA tenderness. Normal external genitalia. Vaginal canal without lesions or abnormalities. Scant red blood at os. No adnexal tenderness, no CMT Ext: Atraumatic. No LE edema. ROM intact. WWP Neuro: A&Ox3, CN grossly intact, normal speech, motor/sensory grossly intact and symmetric Psych: Mood appropriate to situation ED Treatment Course - LABORATORY CBC & Chemistry Diagram: 09/28/19 12:24 09/28/19 12:10 - ADDITIONAL ORDERS Additional order review: Laboratory Results 09/28/19 11:35 Urine Color Yellow Urine Appearance Clear Urine pH 5.5 Ur Specific [place] 1.017 Urine Protein Negative Urine Glucose (UA) Negative Urine Ketones Negative Urine Blood 1+ H Urine Nitrite Negative Urine Bilirubin Negative Urine Urobilinogen 0.2 Ur Leukocyte Esterase Negative Urine WBC (Auto) 0 Urine RBC (Auto) 0 Urine Casts (Auto) 0 U Epithel Cells (Auto) 0.4 Urine Bacteria (Auto) 11.3 - RADIOLOGY Radiology Studies Ordered: Category Date Time Status TRANSVAGINAL ULTRASOUND US [US] Stat Ultrasound 09/28/19 12:05 Ordered Medical Decision Making - Medical Decision Making 09/28/19 12:10 Stephanie Gregg is a 29yo woman with no known medical history who presents with 10/ 10 cramping suprapubic pain, dysuria, and vaginal itching since last night. She reports that the pain is cramping, 10/10, and located along the entire low abdomen. She is currently sexually active with her and does not use control; she reports that her last period was from 08/28-09/01 but are generally irregular. - Most likely UTI v normal menstruation v early . No focal pain suggesting torsion or ruptured cyst, no vaginal discharge or known risk factors for STDs, no GI symptoms - UA, urine preg - Acetaminophen 09/28/19 12:13 - Pelvic exam w/ scant bleeding at os, suspect menstruation v - UA negative for UTI - Urine preg pending - CBC, CMP, TVUS ordered for additional evaluation given negative urinaylsis 09/28/19 13:28 - Labs reviewed, unremarkable - negative - US to be completed 09/28/19 14:23 - US w/ small amount of free fluid at rt adnexa but otherwise unremarkable - Pt now sleeping comfortably. States that pain is improved to 6-7/10. Feels that pain has resolved enough that she feels comfortable going home. - Updated pt regarding results of US, labs, UA - Discussed home care, follow up, return precautions. Pt states understanding and agreement. Discussed with Dr Luna Parr PGY2 Discharge - Discharge Information Problems reviewed: Yes Clinical Impression/Diagnosis: Suprapubic pain Condition: Stable Disposition: HOME - Admission No - Follow up/Referral - Patient Discharge Instructions Additional Instructions: Discharge Instructions: You were seen in the emergency department for lower abdominal pain and discomfort with urination. Your blood tests and ultrasound did not show any concerning findings. Your urine test showed a small number of bacteria but is unlikely to be an infection. Home Care and Follow Up: - You may use over the counter medications as needed for pain at home. 650- 1000mg acetaminophen (Tylenol) or 600mg ibuprofen (Motrin or Advil) can be used every 6-8 hours. If needed for continued pain, these medications may be alternated every 3-4 hours. For example, if you take ibuprofen at 9am, you may take acetaminophen at noon, ibuprofen at 3pm, etc. - It is strongly recommended that you take ibuprofen with food to help prevent stomach irritation. - You may buy a numbing patch that contains lidocaine (the patch is 4% lidocaine ) that can be placed over the areas of greatest pain. The lidocaine patch may be placed for 12 hours then removed for 12 hours. - Try using an ice pack for 20 minutes every hour or a heating pad for additional pain control. These should NOT be used over the lidocaine patch, but you may place them over the areas of pain while the patch is off. - Do not stop moving around. As much as you can tolerate, continue to do light exercise and stretching exercises. Increase your activity level as much as you can tolerate daily. - If your pain does not improve over the next week, please see your regular doctor - Seek immediate medical care if you have significant worsening of your symptoms , you have fever to 101F or higher, you develop severe vomiting or diarrhea and become dehydrated, or you have any other medical emergency. - Post Discharge Activity
[2019-09-28] MEDS ORDERED: KETOROLAC TROMETHAMINE 60 MG/2 ML VIAL IM ONE (12:22)
[2019-09-28] MEDS ORDERED: KETOROLAC TROMETHAMINE 60 MG/2 ML VIAL ONE (12:45)
[2019-09-28 12:50] LABS: BASO % 0.5 % (0-2.0); HEMATOCRIT 34.2 % (32.4-45.2); HEMOGLOBIN 10.6 GM/dL (10.7-15.3)
[2019-09-28 12:53] LABS: EOS % 2.1 % (0-4.5); LYMPH % 31.8 % (8-40); MCH 20.9 pg (25.7-33.7); MEAN CELL VOLUME 67.3 fl (80-96); MEAN PLT VOLUME 9.1 fl (7.5-11.1); MONO % 7.1 % (3.8-10.2); NEUT % 58.5 % (42.8-82.8); PLATELET COUNT 297 K/MM3 (134-434); RBC 5.08 M/mm3 (3.60-5.2); RDW 17.5 % (11.6-15.6); WHITE BLOOD COUNT 5.4 K/mm3 (4.0-10.0)
[2019-09-28 13:22] LABS: ALBUMIN 3.9 g/dl (3.4-5.0); BILIRUBIN,TOTAL 0.2 mg/dL (0.2-1); BLOOD UREA NITROGEN 10.4 mg/dL (7-18); CALCIUM 9.1 mg/dL (8.5-10.1); CREATININE 0.6 mg/dL (0.55-1.3); POTASSIUM 4.2 mmol/L (3.5-5.1); TOT PROT 7.7 g/dl (6.4-8.2)
[2019-09-28 13:28] LABS: ANISOCYTOSIS 1+; PLATELET ESTIMATE NORMAL
== END 2019-09-28 15:11 | disposition home or self-care (01) ==
LOC: JER 10:37
PROC: 3E0233Z Introduction of Anti-inflammatory into Muscle, Percutaneous Approach (ICD-10-PCS; principal; 2019-09-28)
DX: R10.30 Lower abdominal pain, unspecified (principal); Z91.013 Allergy to seafood; Z91.012 Allergy to eggs; Z88.8 Allergy status to other drugs, medicaments and biological substances
CPT/HCPCS: 36415; 76830-TC; 80053; 81003; 84703; 85025; 96372; 99283-25

== ENCOUNTER 2019-10-27 22:46 | Emergency (ER) | payer OTHER ==
[2019-10-27 22:55] VITALS: BP 104/62; PULSE 92; TEMP 98.4; BMI 37.0
--- NOTE | 2019-10-27 23:09 | PDOC ---
History of Present Illness - General Chief Complaint: Cold Symptoms Stated Complaint: COUGHING/SORE THROAT/FEVER/BODY ACHE Time Seen by Provider: 10/27/19 22:56 History Source: Patient - History of Present Illness Initial Comments: 10/27/19 23:03 29 year old female nasal congestion, cough, throat pain, bodyaches started this morning. denies NVD, abdominal pain, urinary symptoms. PMHX: asthma, anemia LMP : 10/26/2019 10/27/19 23:05 Past History - Past Medical History Allergies/Adverse Reactions: Allergies Allergy/AdvReac Type Severity Reaction Status Date / Time egg Allergy Verified 05/09/19 11:09 heparin (porcine) Allergy Verified 05/09/19 11:09 shellfish derived Allergy Verified 05/09/19 11:09 SEA FOOD Allergy Uncoded 05/09/19 11:09 Home Medications: Ambulatory Orders Azithromycin [Zithromax -] 250 mg PO UTDICT #6 tab 01/30/19 Butalb/Acetaminophen/Caffeine [Fioricet 50-300-40 mg Capsule] 1 each PO Q6H PRN #20 capsule 05/09/19 Anemia: Yes Asthma: Yes COPD: No DVT: No GI Disorders: Yes (GERD) Psychiatric Problems: Yes (BIPOLAR,SCHIZOPHRENIA,DEPRESSION,ANXIETY DISORDER) - Reproductive History (#): 0 Para: 0 Polycystic Ovaries: Yes Spontaneous : 0 - Immunization History Immunization Up to Date: Yes - Psycho Social/Smoking Cessation Hx Smoking History: Never smoked Have you smoked in the past 12 months: No Hx Alcohol Use: No Drug/Substance Use Hx: No Substance Use Type: None Review of Systems - Review of Systems Able to Perform ROS?: Yes Is the patient limited Greek proficient: No Constitutional: Yes: Fever HEENTM: Yes: Nose Congestion, Throat Pain Respiratory: Yes: Cough *Physical Exam - Vital Signs Last Vital Signs Temp Pulse Resp BP Pulse Ox 98.4 F 92 H 20 104/62 99 10/27/19 22:53 10/27/19 22:53 10/27/19 22:53 10/27/19 22:53 10/27/19 22:53 - Physical Exam General Appearance: Yes: Appropriately Dressed HEENT: positive: Normal Voice, Pharyngeal Erythema, Nasal Congestion. negative : Sinus Tenderness Respiratory/Chest: positive: Lungs Clear, Other (dry cough) Cardiovascular: positive: Regular Rhythm, Regular Rate Gastrointestinal/Abdominal: positive: Normal Bowel Sounds, Soft. negative: Tender Extremity: positive: Normal Capillary Refill, Normal Inspection Integumentary: positive: Normal Color, Dry, Warm Neurologic: positive: Fully Oriented, Alert, Normal Mood/Affect ED Progress Note - Progress Note Progress Note: 10/27/19 23:21 A: viral syndrome P: influenza strep ibuprofen duoneb Discharge - Discharge Information Problems reviewed: Yes Clinical Impression/Diagnosis: Viral respiratory illness, Influenza B Disposition: HOME - Follow up/Referral - Patient Discharge Instructions Patient Printed Discharge Instructions: Influenza Additional Instructions: You were tested positive for the flu. Take Tamiflu as prescribed. Your first dose was given here today. Drink plenty of fluids Gargle with warm salty water Drink warm liquids Take ibuprofen every 6 hours as needed for pain or fever Follow with your doctor as soon as possible. - Post Discharge Activity Work/Back to School Note: Back to Work
[2019-10-27] MEDS ORDERED: IBUPROFEN 600 MG TABLET (FP) PO ONE ×2 (23:10→23:12)
[2019-10-27] MEDS ORDERED: ALBUTEROL SO4 2.5/IPRATROPIUM 0.5 INH SOL 3 ML VIAL.NEB. NEB ONE (23:12)
--- NOTE | 2019-10-27 23:17 | PDOC ---
*Physical Exam - Vital Signs Last Vital Signs Temp Pulse Resp BP Pulse Ox 98.4 F 92 H 20 104/62 99 10/27/19 22:53 10/27/19 22:53 10/27/19 22:53 10/27/19 22:53 10/27/19 22:53 Medical Decision Making - Medical Decision Making 10/27/19 23:17 Patient seen by the advanced practice provider under my direct supervision. Ancillary testing reviewed as necessary. I agree with plan as outlined by the advanced practice provider. Discharge - Discharge Information Problems reviewed: Yes Clinical Impression/Diagnosis: Viral respiratory illness, Influenza B Disposition: HOME - Additional Discharge Information Prescriptions: Oseltamivir Phosphate [Tamiflu -] 75 mg PO BID #10 capsule - Follow up/Referral - Patient Discharge Instructions Patient Printed Discharge Instructions: Influenza Additional Instructions: You were tested positive for the flu. Take Tamiflu as prescribed. Your first dose was given here today. Drink plenty of fluids Gargle with warm salty water Drink warm liquids Take ibuprofen every 6 hours as needed for pain or fever Follow with your doctor as soon as possible. - Post Discharge Activity Work/Back to School Note: Back to Work
[2019-10-28] MEDS ORDERED: OSELTAMIVIR PHOSPHATE 75 MG CAPSULE PO ONE (00:11)
[2019-10-28] MEDS ORDERED: OSELTAMIVIR PHOSPHATE 75 MG CAPSULE ONE (00:15)
== END 2019-10-28 00:24 | disposition home or self-care (01) ==
LOC: JER 22:46
PROC: 3E0F7GC Introduction of Other Therapeutic Substance into Respiratory Tract, Via Natural or Artificial Opening (ICD-10-PCS; principal; 2019-10-27)
DX: J10.1 Influenza due to other identified influenza virus with other respiratory manifestations (principal); J45.909 Unspecified asthma, uncomplicated; K21.9 Gastro-esophageal reflux disease without esophagitis; Z86.59 Personal history of other mental and behavioral disorders; Z91.018 Allergy to other foods; Z91.013 Allergy to seafood; Z91.012 Allergy to eggs
CPT/HCPCS: 87070; 87804; 87880; 99282-25

== ENCOUNTER 2019-12-04 08:16 | Emergency (ER) | payer OTHER ==
[2019-12-04 08:29] VITALS: BP 104/67; PULSE 71; TEMP 98; BMI 38.3
[2019-12-04] MEDS ORDERED: FAMOTIDINE 20 MG/50 ML IVPB 20 MG/50 ML MG IVPB ONE ×2 (08:45→09:05)
[2019-12-04] MEDS ORDERED: ACETAMINOPHEN 1000 MG/100 ML VIAL (NON FORMULARY) IVPB ONE (08:45)
[2019-12-04] MEDS ORDERED: SODIUM CHLORIDE 1,000 ML IV STA (08:46)
--- NOTE | 2019-12-04 08:53 | PDOC ---
History of Present Illness - General History Source: Patient Exam Limitations: Clinical Condition - History of Present Illness Initial Comments: 12/04/19 08:48 Patient with past medical history of schizophrenia, bipolar, asthma, GERD and anemia present with complaint of 2 days history of diffuse cramping abdominal pain with pain all over her abdomen and radiating to the back. Patient reported pain started suddenly while she was sleeping 2 days ago. Denies nausea , vomiting, diarrhea, constipation, fever, chills. Patient has not taken anything for pain. Described pain as 10 out of 10 pain. Reported last bowel movement was yesterday night which was soft. Patient had multiple visit in the past few months for same symptoms with no findings. Denies recent travel or sick contact. Denies any other symptoms Is this a multiple visit Asthma Patient?: No Timing/Duration: other (2 days) <Solitario Salgado - Last Filed: 12/04/19 11:13> <Rufino Nguyen - Last Filed: 12/04/19 16:18> - General Chief Complaint: Pain, Acute Stated Complaint: ABD. PAIN Time Seen by Provider: 12/04/19 08:32 Past History - Past Medical History Anemia: Yes Asthma: Yes COPD: No DVT: No GI Disorders: Yes (GERD) Psychiatric Problems: Yes (BIPOLAR,SCHIZOPHRENIA,DEPRESSION,ANXIETY DISORDER) - Reproductive History (#): 0 Para: 0 Polycystic Ovaries: Yes Spontaneous : 0 - Immunization History Immunization Up to Date: No - Psycho Social/Smoking Cessation Hx Smoking History: Never smoked Have you smoked in the past 12 months: No Hx Alcohol Use: No Drug/Substance Use Hx: No Substance Use Type: None <Solitario Salgado - Last Filed: 12/04/19 11:13> <Rufino Nguyen - Last Filed: 12/04/19 16:18> - Past Medical History Allergies/Adverse Reactions: Allergies Allergy/AdvReac Type Severity Reaction Status Date / Time egg Allergy Verified 11/19/19 09:43 heparin (porcine) Allergy Verified 11/19/19 09:43 shellfish derived Allergy Verified 11/19/19 09:43 SEA FOOD Allergy Uncoded 11/19/19 09:43 Home Medications: Ambulatory Orders Famotidine [Pepcid -] 20 mg PO BID #14 tablet 12/04/19 Ketorolac Tromethamine [Toradol] 10 mg PO Q8H #12 tablet 12/04/19 Mag Hydrox/Aluminum Hyd/Simeth [Maalox Advanced Suspension] 30 ml PO Q8H PRN # 200 ml 12/04/19 Metoclopramide HCl [Reglan -] 10 mg PO Q8H PRN #12 tablet 12/04/19 Review of Systems - Review of Systems Able to Perform ROS?: Yes Is the patient limited Lithuanian proficient: No Constitutional: No: Chills, Fever, Malaise HEENTM: No: Symptoms Reported, See HPI, Eye Pain, Blurred Vision, Tearing, Recent change in vision, Double Vision, Cataracts, Ear Pain, Ocular Prothesis, Ear Discharge, Nose Pain, Nose Congestion, Tinnitus, Nose Bleeding, Hearing Loss , Throat Pain, Throat Swelling, Mouth Pain, Dental Problems, Difficulty Swallowing, Mouth Swelling, Other Respiratory: No: Symptoms reported, See HPI, Cough, Orthopnea, Shortness of Breath, SOB with Exertion, SOB at Rest, Stridor, Wheezing, Productive cough, Hemoptysis, Other Cardiac (ROS): No: Symptoms Reported, See HPI, Chest Pain, Edema, Irregular Heart Rate, Lightheadedness, Palpitations, Syncope, Chest Tightness, Other ABD/GI: Yes: Symptoms Reported, See HPI, Abdominal cramping (diffused abdominal pain). No: Abdominal Distended, Abd. Pain w/ defecation, Blood Streaked Bowels , Constipated, Diarrhea, Difficulty Swallowing, Nausea, Poor Appetite, Poor Fluid Intake, Rectal Bleeding, Vomiting, Indigestion, Tarry Stools : No: Symptoms Reported, Burning, Dysuria, Discharge, Frequency, Flank Pain, Hematuria, Urgency Musculoskeletal: No: Symptoms Reported Integumentary: No: Symptoms Reported Neurological: No: Symptoms reported All Other Systems: Reviewed and Negative <DamianSolitario ulloa - Last Filed: 12/04/19 11:13> *Physical Exam - Vital Signs Last Vital Signs Temp Pulse Resp BP Pulse Ox 98.0 F 71 18 104/67 100 12/04/19 08:26 12/04/19 08:26 12/04/19 08:26 12/04/19 08:26 12/04/19 08:26 - Physical Exam 12/04/19 08:53 GENERAL: Well developed, well nourished. Awake and alert in mild acute distress. HEENT: Normocephalic, atraumatic. PERRLA, EOMI. No conjunctival pallor. Sclera are non-icteric. Moist mucous membranes. Oropharynx is clear. NECK: Supple. Full ROM. CARDIOVASCULAR: Regular rate and rhythm. No murmurs, rubs, or gallops. Distal pulses are 2+ and symmetric. PULMONARY: No evidence of respiratory distress. Lungs clear to auscultation bilaterally. No wheezing, rales or rhonchi. ABDOMINAL: Soft. Diffuse abdominal subjective tenderness with increased tenderness to epigastric region. Non-distended. No rebound or guarding. No organomegaly. Normoactive bowel sounds. MUSCULOSKELETAL Normal range of motion at all joints. SKIN: Warm and dry. Normal capillary refill. No rashes. No jaundice. NEUROLOGICAL: Alert, awake, appropriate. Gait is normal without ataxia. PSYCHIATRIC: Cooperative. Good eye contact. Appropriate mood General Appearance: Yes: Nourished, Appropriately Dressed, Apparent Distress, Mild Distress <Solitario Salgado - Last Filed: 12/04/19 11:13> - Vital Signs Last Vital Signs Temp Pulse Resp BP Pulse Ox 98.0 F 71 18 104/67 100 12/04/19 08:26 12/04/19 08:26 12/04/19 08:26 12/04/19 08:26 12/04/19 08:26 <Rufino Nguyen - Last Filed: 12/04/19 16:18> ED Treatment Course - LABORATORY CBC & Chemistry Diagram: 12/04/19 08:52 12/04/19 08:52 <Solitario Salgado - Last Filed: 12/04/19 11:13> - LABORATORY CBC & Chemistry Diagram: 12/04/19 08:52 12/04/19 08:52 - ADDITIONAL ORDERS Additional order review: Laboratory Results 12/04/19 12/04/19 12/04/19 08:52 08:52 08:52 Sodium Potassium Chloride Carbon Dioxide Anion Gap BUN Creatinine Est GFR (CKD-EPI)AfAm Est GFR (CKD-EPI)NonAf Random Glucose Calcium Total Bilirubin AST ALT Alkaline Phosphatase Total Protein Albumin Lipase 260 Urine Color Yellow Urine Appearance Cloudy Urine pH 5.5 Ur Specific [place] 1.024 Urine Protein Negative Urine Glucose (UA) Negative Urine Ketones Negative Urine Blood Negative Urine Nitrite Negative Urine Bilirubin Negative Urine Urobilinogen 0.2 Ur Leukocyte Esterase Negative Urine HCG, Qual Negative 12/04/19 08:52 Sodium 137 Potassium 4.3 Chloride 106 Carbon Dioxide 25 Anion Gap 7 L BUN 11.1 Creatinine 0.7 Est GFR (CKD-EPI)AfAm 134.75 Est GFR (CKD-EPI)NonAf 116.26 Random Glucose 90 Calcium 9.0 Total Bilirubin 0.2 AST 21 ALT 17 Alkaline Phosphatase 76 Total Protein 7.5 Albumin 3.6 Lipase Urine Color Urine Appearance Urine pH Ur Specific [place] Urine Protein Urine Glucose (UA) Urine Ketones Urine Blood Urine Nitrite Urine Bilirubin Urine Urobilinogen Ur Leukocyte Esterase Urine HCG, Qual 12/04/19 08:52 RBC 5.11 MCV 67.1 L MCHC 31.1 L RDW 17.1 H MPV 9.7 Neutrophils % 66.7 Lymphocytes % 26.2 Monocytes % 5.3 Eosinophils % 0.8 Basophils % 1.0 - Medications Given in the ED: ED Medications Discontinued Medications Generic Name Dose Route Start Last Admin Trade Name Ronnieq PRN Reason Stop Dose Admin Acetaminophen 1,000 mg 12/04/19 08:45 12/04/19 09:12 Ofirmev Injection - IVPB 12/04/19 08:46 1,000 mg ONCE ONE Administration Al Hydroxide/Mg Hydroxide 30 ml 12/04/19 08:59 12/04/19 09:12 Mylanta Oral Suspension - PO 12/04/19 09:00 30 ml ONCE ONE Administration Famotidine/Sodium Chloride 20 mg in 50 mls @ 100 mls/hr 12/04/19 08:45 09:31 Pepcid 20 Mg Premixed Ivpb - IVPB 12/04/19 09:14 100 mls/hr ONCE ONE Administration Sodium Chloride 1,000 mls @ 1,000 mls/hr 12/04/19 08:46 12/04/19 09:12 Normal Saline - IV 12/04/19 09:45 1,000 mls/hr ASDIR STA Administration Ketorolac Tromethamine 30 mg 12/04/19 10:22 12/04/19 10:31 Toradol Injection - IVPUSH 12/04/19 10:23 30 mg ONCE ONE Administration Metoclopramide HCl 10 mg 12/04/19 10:22 12/04/19 10:31 Reglan Injection - IVPB 12/04/19 10:23 10 mg ONCE ONE Administration <Rufino Nguyen - Last Filed: 12/04/19 16:18> Medical Decision Making - Medical Decision Making 12/04/19 08:51 Patient with past medical history of schizophrenia, bipolar, asthma, GERD and anemia present with complaint of 2 days history of diffuse cramping abdominal pain with pain all over her abdomen and radiating to the back. Patient reported pain started suddenly while she was sleeping 2 days ago. Denies nausea , vomiting, diarrhea, constipation, fever, chills. Patient has not taken anything for pain. Described pain as 10 out of 10 pain. Reported last bowel movement was yesterday night which was soft. Patient had multiple visit in the past few months for same symptoms with no findings. Denies recent travel or sick contact. Denies urinary frequency, dysuria or burning with urination. LMP was a week ago. Denies any other symptoms Exam significant for subjective diffuse abdominal pain with increased pain to epigastric region without guarding or rebound. Normal cardio exam and lungs clear to auscultation bilateral. Symptoms likely gastritis versus less likely cholecystitis or colitis. CBC, CMP and lipase lab ordered. IV Tylenol 1 g IV ordered and Pepcid 20 mg IV ordered for abdominal pain. IV hydration with normal saline 1 L ordered. Urine lab ordered to rule out acute urine infection. Will consider abdominal ultrasound based on labs 12/04/19 10:32 CBC and chemistry lab unremarkable. Patient pending abdominal ultrasound. Patient reports still feeling pain despite giving IV Tylenol 1 g. Toradol 30 mg IV ordered and Reglan 10 mg IV ordered. Reassess after 20 minutes 12/04/19 11:13 Patient reported improvement of pain after Toradol. Abdominal ultrasound shows large 2 cm nonobstructing gallstone with no evidence of cholecystitis. Patient stable for discharge on Pepcid and Maalox PRN for abdominal pain and Toradol PRN for pain with general surgery follow-up for gallstone and GI follow-up for abdominal pain <Solitario Salgado - Last Filed: 12/04/19 11:13> - Medical Decision Making 12/04/19 16:18 I reviewed the case of the mid-level practitioner and was available for consultation while in the emergency department <Rufino Nguyen - Last Filed: 12/04/19 16:18> Discharge - Discharge Information Problems reviewed: Yes - Admission No <Solitario Salgado - Last Filed: 12/04/19 11:13> <Rufino Nguyen - Last Filed: 12/04/19 16:18> - Discharge Information Clinical Impression/Diagnosis: Abdominal pain Qualifiers: Abdominal location: generalized Qualified Code(s): R10.84 - Generalized abdominal pain Gallstone Qualifiers: Cholecystitis presence: without cholecystitis Biliary obstruction: without biliary obstruction Qualified Code(s): K80.20 - Calculus of gallbladder without cholecystitis without obstruction Condition: Improved Disposition: HOME - Additional Discharge Information Prescriptions: Famotidine [Pepcid -] 20 mg PO BID #14 tablet Ketorolac Tromethamine [Toradol] 10 mg PO Q8H #12 tablet Mag Hydrox/Aluminum Hyd/Simeth [Maalox Advanced Suspension] 30 ml PO Q8H PRN # 200 ml PRN Reason: abdominal discomfort Metoclopramide HCl [Reglan -] 10 mg PO Q8H PRN #12 tablet PRN Reason: abdominal discomfort - Follow up/Referral Referrals: Rose Joshi NP [Primary Care Provider] - Brian Adame MD [Staff Physician] - Parmjit Avitia MD [Staff Physician] - - Patient Discharge Instructions Patient Printed Discharge Instructions: DI for Gallstones Additional Instructions: Your blood work is normal. Your ultrasound shows gallstone with no infection. Take prescribed medication as prescribed abdominal pain. Follow-up referred to general surgeon Dr. Adame for gallstone. Follow-up with the GI doctor Dr. Avitia for abdominal pain. Increase fluid intake. Decrease fat intake. Come back to emergency room if worsening abdominal pain with fevers.
[2019-12-04] MEDS ORDERED: MAG HYDROX/AL HYDROX/SIMETH 30 ML UNIT-DOSE CUP PO ONE (08:59)
[2019-12-04] MEDS ORDERED: MAG HYDROX/AL HYDROX/SIMETH 30 ML UNIT-DOSE CUP ONE (09:05)
[2019-12-04] MEDS ORDERED: ACETAMINOPHEN INJECTION 100 ML IVPB ONE (09:05)
[2019-12-04 09:35] LABS: EOS % 0.8 % (0-4.5); HEMATOCRIT 34.3 % (32.4-45.2); HEMOGLOBIN 10.7 GM/dL (10.7-15.3); LYMPH % 26.2 % (8-40); MCH 20.9 pg (25.7-33.7); MCHC 31.1 g/dl (32.0-36.0); MEAN CELL VOLUME 67.1 fl (80-96); MEAN PLT VOLUME 9.7 fl (7.5-11.1); MONO % 5.3 % (3.8-10.2); NEUT % 66.7 % (42.8-82.8); PLATELET COUNT 336 K/MM3 (134-434); RBC 5.11 M/mm3 (3.60-5.2); RDW 17.1 % (11.6-15.6); WHITE BLOOD COUNT 5.8 K/mm3 (4.0-10.0)
[2019-12-04 09:40] LABS: PH,URINE 5.5 (5.0-8.0); URINE APPEARANCE CLOUDY; URINE BILIRUBIN NEGATIVE (NEGATIVE); URINE COLOR YELLOW; URINE GLUCOSE (UA) NEGATIVE (NEGATIVE); URINE KETONE NEGATIVE (NEGATIVE); URINE LEUK ESTERASE NEGATIVE (NEGATIVE); URINE NITRITE NEGATIVE (NEGATIVE); URINE PROTEIN NEGATIVE (NEGATIVE); URINE UROBILINOGEN 0.2 mg/dL (0.2-1.0)
[2019-12-04 10:10] LABS: ALBUMIN 3.6 g/dl (3.4-5.0); BILIRUBIN,TOTAL 0.2 mg/dL (0.2-1); BLOOD UREA NITROGEN 11.1 mg/dL (7-18); CREATININE 0.7 mg/dL (0.55-1.3); POTASSIUM 4.3 mmol/L (3.5-5.1); TOT PROT 7.5 g/dl (6.4-8.2)
[2019-12-04] MEDS ORDERED: METOCLOPRAMIDE HCL INJECTION 10 MG/2 ML VIAL IVPB ONE (10:22)
[2019-12-04] MEDS ORDERED: KETOROLAC TROMETHAMINE 30 MG/1 ML VIAL IVPUSH ONE (10:22)
[2019-12-04] MEDS ORDERED: KETOROLAC TROMETHAMINE 30 MG/1 ML VIAL ONE (10:25)
[2019-12-04] MEDS ORDERED: METOCLOPRAMIDE HCL INJECTION 10 MG/2 ML VIAL ONE (10:25)
[2019-12-04 14:26] LABS: ANISOCYTOSIS 1+; MACROCYTOSIS 0; OVALOCYTE 2+; PLATELET ESTIMATE NORMAL; TARGET CELLS 1+; TEAR DROP CELLS 1+
== END 2019-12-04 11:13 | disposition home or self-care (01) ==
LOC: JER 08:16
PROC: 3E033NZ Introduction of Analgesics, Hypnotics, Sedatives into Peripheral Vein, Percutaneous Approach (ICD-10-PCS; principal; 2019-12-04)
PROC: 3E033GC Introduction of Other Therapeutic Substance into Peripheral Vein, Percutaneous Approach (ICD-10-PCS; 2019-12-04)
PROC: 3E0333Z Introduction of Anti-inflammatory into Peripheral Vein, Percutaneous Approach (ICD-10-PCS; 2019-12-04)
PROC: 3E033GC Introduction of Other Therapeutic Substance into Peripheral Vein, Percutaneous Approach (ICD-10-PCS; 2019-12-04)
DX: K80.20 Calculus of gallbladder without cholecystitis without obstruction (principal); Z88.8 Allergy status to other drugs, medicaments and biological substances; Z91.013 Allergy to seafood; Z91.012 Allergy to eggs
CPT/HCPCS: 36415; 76705-TC; 80053; 81003; 83690; 84703; 85025; 87086; 96361; 96365; 96375; 99282-25; J0131; J7030

== ENCOUNTER 2020-05-09 20:08 | Emergency (ER) | payer OTHER ==
--- NOTE | 2020-05-09 20:10 | PDOC ---
Rapid Medical Evaluation Chief Complaint: Syncope/Near Syncope Time Seen by Provider: 05/09/20 20:10 Medical Evaluation: Allergies Allergy/AdvReac Type Severity Reaction Status Date / Time egg Allergy Verified 05/01/20 07:32 heparin (porcine) Allergy Verified 05/01/20 07:32 shellfish derived Allergy Verified 05/01/20 07:32 SEA FOOD Allergy Uncoded 05/01/20 07:32 05/09/20 20:11 30 year old c/o left sided chest pain with dizziness. denies syncope patient reports that she has some generalized abdominal pain, nausea/ vomiting. PE: patient alert ox3. breath sounds clear, regular rate A: labs EKG Discharge Disposition - Diagnosis Chest pain at rest - Referrals - Patient Instructions - Post Discharge Activity
[2020-05-09 20:29] VITALS: TEMP 98; BMI 37.0
[2020-05-09] MEDS ORDERED: MECLIZINE HCL 25 MG TABLET (FP) PO ONE (20:34)
--- NOTE | 2020-05-09 20:34 | PDOC ---
History of Present Illness - General Chief Complaint: Chest Pain Stated Complaint: CHEST PAIN/DIZZINESS Time Seen by Provider: 05/09/20 20:10 - History of Present Illness Initial Comments: 05/09/20 20:30 30 y/o F w/PMH of anemia and GERD presents for evaluation of CP and dizziness which started about an hour [employer] Past History - Medical History Allergies/Adverse Reactions: Allergies Allergy/AdvReac Type Severity Reaction Status Date / Time egg Allergy Verified 05/01/20 07:32 heparin (porcine) Allergy Verified 05/01/20 07:32 shellfish derived Allergy Verified 05/01/20 07:32 SEA FOOD Allergy Uncoded 05/01/20 07:32 Home Medications: Ambulatory Orders Albuterol Sulfate [Proair Hfa] 8.5 gm IH QID PRN 04/01/20 Omeprazole 40 mg PO DAILY 04/01/20 Budesonide/Formeterol Fumarate [SYMBICORT 80/4.5mcg -] 1 puff IH DAILY PRN 05/01/20 Ferrous Sulfate 325 mg PO DAILY 05/01/20 Anemia: Yes Asthma: Yes COPD: No DVT: No GI Disorders: Yes (GERD) Psychiatric Problems: Yes (BIPOLAR,SCHIZOPHRENIA,DEPRESSION,ANXIETY DISORDER) - Reproductive History (#): 0 Para: 0 Polycystic Ovaries: Yes Spontaneous : 0 - Immunization History Immunization Up to Date: No - Psycho-Social/Smoking History Smoking History: Never smoked Have you smoked in the past 12 months: No - Substance Abuse Hx (Audit-C & DAST Scrn) How often the patient has a drink containing alcohol: Never Score: In Men: 4 or > Positive; In Women: 3 or > Positive: 0 Screen Result (Pos requires Nsg. Audit-10AR): Negative In the last yr the pt used illegal drug/Rx for NonMed reason: No Score: Yes response is considered Positive: 0 Screen Result (Positive result requires Nsg. DAST-10): Negative Review of Systems - Review of Systems Cardiac (ROS): Yes: Chest Pain ABD/GI: Yes: Nausea, Vomiting Neurological: Yes: Dizziness *Physical Exam - Vital Signs Last Vital Signs Temp Pulse Resp BP Pulse Ox 98 F 68 20 101/65 100 05/09/20 20:12 05/09/20 20:12 05/09/20 20:12 05/09/20 20:12 05/09/20 20:12 - Physical Exam General Appearance: Yes: Nourished, Appropriately Dressed. No: Apparent Distress HEENT: positive: Normal Voice, Symmetrical Neck: positive: Supple Respiratory/Chest: positive: Lungs Clear, Normal Breath Sounds. negative: Respiratory Distress Cardiovascular: positive: Regular Rhythm, Regular Rate Gastrointestinal/Abdominal: positive: Normal Bowel Sounds. negative: Tender Musculoskeletal: positive: Normal Inspection Extremity: positive: Normal Inspection Integumentary: positive: Normal Color, Dry, Warm Neurologic: positive: breast trimmer II-XII NML intact, Fully Oriented ED Treatment Course - LABORATORY CBC & Chemistry Diagram: 05/09/20 21:25 05/09/20 21:25 Medical Decision Making - Medical Decision Making 05/09/20 20:33 PERC negative 05/09/20 22:37 Patient still vertiginous after meclizine will do CT of head and signed out to main emergency room at this time Discharge - Discharge Information Problems reviewed: Yes Clinical Impression/Diagnosis: BPV (benign positional vertigo) Clinical Impression/Diagnosis: (Ruled Out): Chest pain at rest - Follow up/Referral Referrals: Rose Joshi NP [Primary Care Provider] - - Patient Discharge Instructions - Post Discharge Activity
[2020-05-09] MEDS ORDERED: ONDANSETRON *ODT* 4 MG TABLET SL ONE (20:36)
[2020-05-09] MEDS ORDERED: ONDANSETRON *ODT* 4 MG TABLET ONE (21:07)
[2020-05-09] MEDS ORDERED: MECLIZINE HCL 25 MG TABLET (FP) ONE (21:09)
--- NOTE | 2020-05-09 21:24 | PDOC ---
*Physical Exam - Vital Signs Last Vital Signs Temp Pulse Resp BP Pulse Ox 98 F 68 20 101/65 100 05/09/20 20:12 05/09/20 20:12 05/09/20 20:12 05/09/20 20:12 05/09/20 20:12 ED Treatment Course - LABORATORY CBC & Chemistry Diagram: 05/09/20 21:25 05/09/20 21:25 - Medications Given in the ED: ED Medications Discontinued Medications Generic Name Dose Route Start Last Admin Trade Name Gena PRN Reason Stop Dose Admin Meclizine HCl 50 mg 05/09/20 20:34 05/09/20 21:09 Antivert - PO 05/09/20 20:35 50 mg ONCE ONE Administration Ondansetron HCl 4 mg 05/09/20 20:36 05/09/20 21:09 Zofran Odt - SL 05/09/20 20:37 4 mg ONCE ONE Administration Medical Decision Making - Medical Decision Making 05/09/20 21:24 Patient seen by the advanced practice provider under my supervision. Ancillary testing reviewed as necessary. I agree with plan as outlined by the advanced practice provider. Discharge - Discharge Information Problems reviewed: Yes Clinical Impression/Diagnosis: Dizziness BPV (benign positional vertigo) Qualifiers: Laterality: bilateral Qualified Code(s): H81.13 - Benign paroxysmal vertigo, bilateral Condition: Improved Disposition: HOME - Additional Discharge Information Prescriptions: Meclizine HCl 25 mg PO TID PRN #10 tablet PRN Reason: Vertigo - Follow up/Referral Referrals: Alin Corey MD [Staff Physician] - Call tomorrow Rose Joshi NP [Primary Care Provider] - Dandre Cueva MD [Staff Physician] - Call tomorrow - Patient Discharge Instructions Patient Printed Discharge Instructions: Vertigo Additional Instructions: drink plenty of fluids follow up with your doctor as soon as possible. take meclizine as prescribed. return to the ER for any worsening symptoms. - Post Discharge Activity Work/Back to School Note: Back to Work
[2020-05-09 21:38] LABS: BASO % 0.6 % (0-2.0); EOS % 1.9 % (0-4.5); HEMATOCRIT 31.5 % (32.4-45.2); HEMOGLOBIN 9.9 GM/dL (10.7-15.3); LYMPH % 27.9 % (8-40); MCH 21.3 pg (25.7-33.7); MCHC 31.3 g/dl (32.0-36.0); MEAN CELL VOLUME 68.1 fl (80-96); MEAN PLT VOLUME 9.2 fl (7.5-11.1); MONO % 8.5 % (3.8-10.2); NEUT % 61.1 % (42.8-82.8); PLATELET COUNT 277 K/MM3 (134-434); RBC 4.62 M/mm3 (3.60-5.2); RDW 16.2 % (11.6-15.6); WHITE BLOOD COUNT 5.6 K/mm3 (4.0-10.0)
[2020-05-09 22:05] LABS: ALBUMIN 3.5 g/dl (3.4-5.0); ALK PHOS 65 U/L (45-117); ANION GAP 8 MMOL/L (8-16); BILIRUBIN,TOTAL 0.2 mg/dL (0.2-1); BLOOD UREA NITROGEN 12.1 mg/dL (7-18); CALCIUM 8.8 mg/dL (8.5-10.1); CHLORIDE 109 mmol/L (98-107); CO2 24 mmol/L (21-32); CREATININE 0.8 mg/dL (0.55-1.3); GLUCOSE,RANDOM 100 mg/dL (74-106); LIPASE 244 U/L (73-393); MAGNESIUM 2.4 mg/dL (1.8-2.4); POTASSIUM 4.3 mmol/L (3.5-5.1); SGOT/AST 10 U/L (15-37); SGPT/ALT 13 U/L (13-61); SODIUM 141 mmol/L (136-145)
[2020-05-09 22:36] LABS: ANISOCYTOSIS 1+
[2020-05-09] MEDS ORDERED: SODIUM CHLORIDE 0.9% 500 ML INFUS.BAG IV ONE (22:41)
[2020-05-09] MEDS ORDERED: METOCLOPRAMIDE HCL INJECTION 10 MG/2 ML VIAL IVPUSH ONE (22:41)
[2020-05-09] MEDS ORDERED: METOCLOPRAMIDE HCL INJECTION 10 MG/2 ML VIAL IVPB ONE (22:51)
--- NOTE | 2020-05-09 22:58 | PDOC ---
*Physical Exam - Vital Signs Last Vital Signs Temp Pulse Resp BP Pulse Ox 98 F 68 20 101/65 100 05/09/20 20:12 05/09/20 20:12 05/09/20 20:12 05/09/20 20:12 05/09/20 20:12 ED Treatment Course - LABORATORY CBC & Chemistry Diagram: 05/09/20 21:25 05/09/20 21:25 - ADDITIONAL ORDERS Additional order review: Laboratory Results 05/09/20 05/09/20 21:25 21:25 Sodium 141 Potassium 4.3 Chloride 109 H Carbon Dioxide 24 Anion Gap 8 BUN 12.1 Creatinine 0.8 Est GFR (CKD-EPI)AfAm 113.86 Est GFR (CKD-EPI)NonAf 98.24 Random Glucose 100 Calcium 8.8 Magnesium 2.4 Total Bilirubin 0.2 AST 10 L ALT 13 Alkaline Phosphatase 65 Creatine Kinase 148 Troponin I < 0.02 Total Protein 7.0 Albumin 3.5 Lipase 244 Serum , Qual Negative 05/09/20 21:25 RBC 4.62 MCV 68.1 L MCHC 31.3 L RDW 16.2 H MPV 9.2 Neutrophils % 61.1 Lymphocytes % 27.9 D Monocytes % 8.5 Eosinophils % 1.9 D Basophils % 0.6 - RADIOLOGY Radiology Studies Ordered: Category Date Time Status CHEST PA & LAT [RAD] Stat Radiology 05/09/20 20:10 Taken - Medications Given in the ED: ED Medications Discontinued Medications Generic Name Dose Route Start Last Admin Trade Name Freq PRN Reason Stop Dose Admin Meclizine HCl 50 mg 05/09/20 20:34 05/09/20 21:09 Antivert - PO 05/09/20 20:35 50 mg ONCE ONE Administration Ondansetron HCl 4 mg 05/09/20 20:36 05/09/20 21:09 Zofran Odt - SL 05/09/20 20:37 4 mg ONCE ONE Administration Medical Decision Making - Medical Decision Making 05/10/20 00:22 CT headThere is no acute intraparenchymal hemorrhage. There is no intra or extra-axial collection. No mass effect or midline shift. No evidence for major vessel acute territorial infarction. Blackmon-white matter differentiation is maintained. The ventricles are normal in size and position for patient's age. The paranasal sinuses and mastoid air cells are unopacified. Visualized orbits are unremarkable. Calvarium and soft tissues are unremarkable. patient has no abdominal pain. reports dizziness. currently receiving IVF and reglan. will reevaluate 05/10/20 01:16 patient is currently PO challenging Discharge - Discharge Information Problems reviewed: Yes Clinical Impression/Diagnosis: Dizziness BPV (benign positional vertigo) Qualifiers: Laterality: bilateral Qualified Code(s): H81.13 - Benign paroxysmal vertigo, bilateral Disposition: HOME - Additional Discharge Information Prescriptions: Meclizine HCl 25 mg PO TID PRN #10 tablet PRN Reason: Vertigo - Follow up/Referral Referrals: Rose Joshi NP [Primary Care Provider] - Alin Corey MD [Staff Physician] - Call tomorrow Hammad,Dandre Durham MD [Staff Physician] - Call tomorrow - Patient Discharge Instructions Patient Printed Discharge Instructions: Vertigo Additional Instructions: drink plenty of fluids follow up with your doctor as soon as possible. take meclizine as prescribed. return to the ER for any worsening symptoms. - Post Discharge Activity Work/Back to School Note: Back to Work
[2020-05-09] MEDS ORDERED: METOCLOPRAMIDE HCL INJECTION 10 MG/2 ML VIAL ONE (23:27)
[2020-05-10 02:05] LABS: EPI CELLS 4 /uL (0-25.1); HYALINE CASTS 1 /uL (0-3.1); PH,URINE 7.5 (5.0-8.0); URINE APPEARANCE CLEAR; URINE BACTERIA 10 /uL (0-1359); URINE BILIRUBIN NEGATIVE (NEGATIVE); URINE COLOR YELLOW; URINE GLUCOSE (UA) NEGATIVE (NEGATIVE); URINE KETONE NEGATIVE (NEGATIVE); URINE LEUK ESTERASE NEGATIVE (NEGATIVE); URINE NITRITE NEGATIVE (NEGATIVE); URINE PROTEIN NEGATIVE (NEGATIVE); URINE RBC 397 /uL (0-23.9); URINE UROBILINOGEN 0.2 mg/dL (0.2-1.0); URINE WBC 2 /uL (0-25.8)
[2020-05-10 02:08] LABS: YEAST NONE SEEN (NEGATIVE)
[2020-05-10 02:36] VITALS: BP 96/64; PULSE 71
--- NOTE | 2020-05-10 12:27 | EKG ---
Test Reason : Blood Pressure : / mmHG Vent. Rate : 057 BPM Atrial Rate : 057 BPM P-R Int : 166 ms QRS Dur : 078 ms QT Int : 422 ms P-R-T Axes : 034 016 019 degrees QTc Int : 410 ms SINUS BRADYCARDIA OTHERWISE NORMAL ECG WHEN COMPARED WITH ECG OF 01-MAY-2020 09:01, NO SIGNIFICANT CHANGE WAS FOUND Confirmed by Favian Meehan MD ([id number]) on 05/10/2020 12:26:58 PM Referred By: Confirmed By:Favian Meehan MD
== END 2020-05-10 02:37 | disposition home or self-care (01) ==
LOC: JER 20:08
PROC: 3E033GC Introduction of Other Therapeutic Substance into Peripheral Vein, Percutaneous Approach (ICD-10-PCS; principal; 2020-05-09)
DX: H81.13 Benign paroxysmal vertigo, bilateral (principal)
CPT/HCPCS: 36415; 70450-TC; 71046-TC-FY; 80053; 81003; 82550; 83690; 83735; 84484; 84703; 85025; 93005; 93010; 96374; 99285-25; Q0162

== ENCOUNTER 2022-05-20 20:09 | Emergency (ER) | payer OTHER ==
[2022-05-20 20:30] VITALS: BP 116/78; PULSE 101; TEMP 98.2; BMI 39.0
[2022-05-20 22:23] LABS: THROAT:GRP A STREP NOT DETECTED (NOTDETECTED)
[2022-05-20] MEDS ORDERED: DEXAMETHASONE SOD PHOSPHATE 10 MG/1 ML VIAL IM ONE (23:14)
[2022-05-20] MEDS ORDERED: KETOROLAC TROMETHAMINE 30 MG/1 ML VIAL IM ONE (23:14)
[2022-05-20] MEDS ORDERED: DEXAMETHASONE SOD PHOSPHATE 10 MG/1 ML VIAL ONE (23:24)
[2022-05-20] MEDS ORDERED: KETOROLAC TROMETHAMINE 30 MG/1 ML VIAL ONE ×2 (23:24→23:28)
== END 2022-05-21 00:05 | disposition home or self-care (01) ==
LOC: JER 20:09
PROC: 3E023GC Introduction of Other Therapeutic Substance into Muscle, Percutaneous Approach (ICD-10-PCS; principal; 2022-05-20)
PROC: 3E0233Z Introduction of Anti-inflammatory into Muscle, Percutaneous Approach (ICD-10-PCS; 2022-05-20)
DX: B34.9 Viral infection, unspecified (principal); R07.9 Chest pain, unspecified
CPT/HCPCS: 0241U-QW; 71046-TC-FY; 87651; 96372; 99284-25; J1100

== ENCOUNTER 2024-01-04 03:43 | Emergency (ER) | payer OTHER ==
[2024-01-04 04:00] VITALS: BP 109/71; PULSE 83; RESP 18; TEMP 98.2; BMI 36.6
[2024-01-04] MEDS ORDERED: IBUPROFEN 600 MG TABLET (FP) PO ONE (05:20)
[2024-01-04] MEDS: IBUPROFEN 600 MG TABLET (FP) PO ONE (05:24)
[2024-01-04] MEDS: BENZOCAINE/MENTH/CETYLPYRD CL 1 EACH LOZENGE MM PRN (05:24)
== END 2024-01-04 07:00 | disposition home or self-care (01) ==
LOC: JER 03:43
DX: R05.9 Cough, unspecified (principal); B34.9 Viral infection, unspecified; R07.0 Pain in throat; R06.02 Shortness of breath; J34.89 Other specified disorders of nose and nasal sinuses; R07.9 Chest pain, unspecified; M54.2 Cervicalgia; J00 Acute nasopharyngitis [common cold]; Z20.822 Contact with and (suspected) exposure to COVID-19
CPT/HCPCS: 0241U-QW; 71046-TC-FY; 84703; 87651; 93005; 93010; 99285-25

== ENCOUNTER 2024-12-24 14:35 | Emergency (ER) | payer OTHER ==
[2024-12-24 14:51] VITALS: RESP 18; BMI 32.9
[2024-12-24] MEDS ORDERED: IBUPROFEN 400 MG TABLET (FP) PO ONE (16:49)
[2024-12-24] MEDS ORDERED: ACETAMINOPHEN 500 MG TABLET (FP) ONE (16:49)
[2024-12-24] MEDS: SODIUM CHLORIDE FOR INHALATION 3 ML VIAL.NEB IH ONE (16:52)
[2024-12-24] MEDS: IBUPROFEN 400 MG TABLET (FP) PO ONE (16:52)
[2024-12-24] MEDS: ACETAMINOPHEN 500 MG TABLET (FP) PO ONE (16:53)
[2024-12-24 17:35] LABS: HIV INTERPRETATION NEGATIVE (NEGATIVE)
[2024-12-24] MEDS ORDERED: DEXAMETHASONE SOD PHOSPHATE 10 MG/1 ML VIAL ONE (18:37)
[2024-12-24] MEDS: DEXAMETHASONE SOD PHOSPHATE 10 MG/1 ML VIAL IM ONE (18:41)
[2024-12-24 20:03] VITALS: BP 131/68; PULSE 88; TEMP 98
== END 2024-12-24 20:14 | disposition home or self-care (01) ==
LOC: JERFT 14:35
PROC: 3E023GC Introduction of Other Therapeutic Substance into Muscle, Percutaneous Approach (ICD-10-PCS; principal; 2024-12-24)
DX: R05.9 Cough, unspecified (principal); B34.9 Viral infection, unspecified; R09.81 Nasal congestion; J02.9 Acute pharyngitis, unspecified; Z20.822 Contact with and (suspected) exposure to COVID-19
CPT/HCPCS: 0241U-QW; 36415; 86803; 87389; 87651; 96372; 99284-25; J1100

== ENCOUNTER 2024-12-30 14:22 | Emergency (ER) | payer OTHER ==
[2024-12-30 14:39] VITALS: BP 115/59; PULSE 90; RESP 18; TEMP 97.6; BMI 34.7
[2024-12-30] MEDS ORDERED: ALBUTEROL SO4 0.083% IH SOL 2.5 MG/3 ML VIAL.NEB. NEB PRN (16:07)
[2024-12-30] MEDS ORDERED: ALBUTEROL SO4 2.5/IPRATROPIUM 0.5 INH SOL 3 ML VIAL.NEB. NEB ONE (16:12)
[2024-12-30] MEDS: ALBUTEROL SO4 2.5/IPRATROPIUM 0.5 INH SOL 3 ML VIAL.NEB. NEB SCH (16:14)
== END 2024-12-30 18:42 | disposition home or self-care (01) ==
LOC: JERFT 14:22
PROC: 3E0F7GC Introduction of Other Therapeutic Substance into Respiratory Tract, Via Natural or Artificial Opening (ICD-10-PCS; principal; 2024-12-30)
DX: J18.9 Pneumonia, unspecified organism (principal); R05.9 Cough, unspecified; R09.82 Postnasal drip; R09.81 Nasal congestion; R06.02 Shortness of breath
CPT/HCPCS: 71046-TC-FY; 94640; 99283-25